=== PATIENT | male | born 1955 | race Caucasian/White ===

== ENCOUNTER 2025-02-09 13:39 | Outpatient (CLI) | payer MEDICARE, SELFPAY ==
--- OUTSIDE RECORDS SUMMARY | 2025-02-09 14:07 | XMS_ITS ---
Author Organization [facility] Address [address] [place] [address] Care Team Providers Care Beer Brewer Name Role Phone Yamileth Conrad Primary Care Provider [phone] REASON FOR VISIT DI orders Social History Sex Assigned At : Social History Observation Description Sex Assigned At Male Encounters Encounter Location Date Provider Diagnosis [address] [address] 02/09/2025 Yamileth Conrad Abnormal electrocardiogram [ECG] [EKG] R94.31 Assessments Encounter Date Diagnosis (ICD Code) Assessment Notes Treatment Notes Treatment Clinical Notes Section Notes 02/09/2025 Abnormal electrocardiogram [ECG] [EKG] (ICD-10 - R94.31) Plan Of Treatment Future Test Test Name Order Date Echocardiogram 02/09/2025 Progress Notes * Federico SHIRLEYDOB:1955 (69 yo M)Acc No.[id number]:02/09/2025 UNLOCKED PROGRESS NOTE Patient: Fdeerico SMALL :1955 A ge:69 Y S ex:Male Address:[address] [place], [address] Subjective: * Chief Complaints: * D I orders * Medical History: * Surgical History: * Hospitalization/Major Diagno stic Procedure: * Medications: Objective: * Vitals: * Physical Examination: Assessment: * Assessment: 1. A bnormal electrocardiogram [ECG] [EKG] - R94.31 (Primary) Plan: * Treatment: * Procedure Codes: * * Date:
--- OUTSIDE RECORDS SUMMARY | 2025-02-09 14:08 | XMS_ITS ---
Author Organization [facility] Address [address] [place] [address] Care Team Providers Care Foam Charger Name Role Phone Yamileth Conrad Primary Care Provider REASON FOR VISIT new code needed Social History Sex Assigned At : Social History Observation Description Sex Assigned At Male Encounters Encounter Location Date Provider Diagnosis [address] [place] [address] 02/09/2025 Yamileth Conrad Plan Of Treatment No Information Progress Notes * CASPERFederico PINEDADOB:1955 (69 yo M)Acc No.[id number]:02/09/2025 Patient: Federico SMALL :1955 A ge:69 Y S ex:Male Address:[address] [place], [address] * true * Date: Generated for Sylvaini ng/Facruzg/eTransmitting on: 0 02/09/2025 02:08 PM CDT
--- OUTSIDE RECORDS SUMMARY | 2025-02-09 14:08 | XMS_ITS | Clinical Summary ---
Author Organization [facility] Address [address] [address] Care Team Providers Care Undercollar Maker Name Role Phone Unavailable Primary Care Provider Unavailabl e Source Comments [facility] documistic,non-owned Affiliates and Associated Physician Practices is amultiple site organization consisting of ambulatory clinics and hospital sitesin [place], [place], [place] and [place]. This disclosure is being madepursuant to the Care Everywhere program and may not contain all information available regarding this patient. Last updated 18.[facility] Allergies No known active allergies Medications * Be aware that medications may not be up to date on this document. Alwaysverify current medications with the patient. Medication Sig Dispensed Refills Start Date End Date Status omeprazole (PriLOSEC) 20 MG capsule Take 1 (one) capsule by mouth daily before breakfast Active amLODIPine (Norvasc) 10 MG tablet Take 1 (one) tablet by mouth once daily Active aspirin EC (Ecotrin) 81 MG tablet Take 1 (one) tablet by mouth once daily Active lisinopril (Prinivil; Zestril) 10 MG tablet Take 1 (one) tablet by mouth once daily Active tamsulosin (Flomax) 0.4 MG capsule Take 1 (one) capsule by mouth once daily At the same time every day after a meal. Active meloxicam (Mobic) 15 MG tablet Take 1 (one) tablet by mouth once daily Active nortriptyline (Pamelor) 10 MG capsule Take 1 (one) capsule by mouth at bedtime Active atorvastatin (Lipitor) 20 MG tablet Take 1 (one) tablet by mouth at bedtime Active Active Problems No known active problems Encounters Date Type Department Care Team Description 01/26/2025 Travel 01/20/2025 Orders Only [facility] - [facility]oped[facility] [address] [place] [phone] Yamileth Aguilar RN Cervical myelopathy 01/17/2025 11:14 AM CLIPPING MARKER - 01/17/2025 11:59 PM CLIPPING MARKER Hospital Encounter [facility] DIAGNOSTIC RAD [address] [place] [phone] Xu Park MD Discharge Disposition: Home or Self Care 01/17/2025 10:45 AM CLIPPING MARKER Office Visit [facility] [address] [place] [phone] Xu Park MD Cervical myelopathy (Primary Dx) 01/14/2025 5:06 PM CLIPPING MARKER - 01/14/2025 11:59 PM CLIPPING MARKER Hospital Encounter [facility] MRI [address] [place] [phone] Xu Park MD Discharge Disposition: Home or Self Care 12/20/2024 9:15 AM CLIPPING MARKER Office Visit [facility] Orthoped[facility] [address] [place] [phone] Xu Park MD Degenerative scoliosis (Primary Dx); Cervical myelopathy 12/20/2024 Travel 12/16/2024 12:25 PM CLIPPING MARKER - 12/16/2024 11:59 PM CLIPPING MARKER Hospital Encounter [facility] CAT SCAN [address] [place] [phone] Xu Park MD Discharge Disposition: Home or Self Care 12/10/2024 12:34 PM CLIPPING MARKER - 12/10/2024 11:59 PM CLIPPING MARKER Hospital Encounter [facility] MRI [address] [place] [phone] Xu Park MD Discharge Disposition: Home or Self Care 12/10/2024 12:30 PM CLIPPING MARKER - 12/10/2024 12:33 PM CLIPPING MARKER Hospital Encounter [facility] MRI [address] [place] [phone] Xu Park MD Discharge Disposition: Home or Self Care 11/22/2024 8:33 AM CLIPPING MARKER - 11/22/2024 11:59 PM CLIPPING MARKER Hospital Encounter [facility] DIAGNOSTIC RAD [address]SM [address] [facility] [facility] [place] [address] Xu Park MD Discharge Disposition: Home or Self Care 11/22/2024 8:30 AM CLIPPING MARKER Office Visit [facility]oped[facility] [address] [place] [address], [place] [phone] Xu Park MD Thoracic myelopathy (Primary Dx); Lumbar stenosis with neurogenic claudication 11/22/2024 Travel 11/18/2024 Orders Only [facility] [address] [place] [phone] Xu Park MD Low back pain, unspecified back pain laterality, unspecified chronicity, unspecified whether sciatica present from Last 3 Months Social History Tobacco Use Types Packs/Day Years Used Date Smoking Tobacco: Former Cigarettes Smokeless Tobacco: Never Tobacco Cessation:Counseling Given: Not Answered Alcohol Use Standard Drinks/Week Comments Not Currently 0 (1 standard drink = 0.6 oz pur e alcohol) AUDIT-C Answer Date Recorded Q1: How often do you have a drink containing alcohol? Never 06/09/2024 Q2: How many drinks containi ng alcohol do you have on a typical day when you are drinking? Patient does not drink Q3: How often do you have si x or more drinks on one occasion? Never 06/09/2024 Sex and Gender Information Value Date Recorded Sex Assigned at Not on file Gender Identity Not on file Sexual Orientation Not on file Last Filed Vital Signs Vital Sign Reading Time Taken Comments Blood Pressure 172/71 07/21/2024 8:41 AM CDT Pulse 85 07/21/2024 8:36 AM CDT Temperature 36.8 C (98.3 F) 07/21/2024 8:36 AM CDT Respiratory Rate 18 07/21/2024 8:36 AM CDT Oxygen Saturation 98% 07/21/2024 8:36 AM CDT Inhaled Oxygen Concentration - - Weight 90.7 kg (200 lb) 11/22/2024 9:00 AM CLIPPING MARKER Height 172.7 cm (5' 8 ) 11/22/2024 9:00 AM CLIPPING MARKER Body Mass Index 30.41 11/22/2024 9:00 AM CLIPPING MARKER Plan of Treatment Upcoming Encounters Date Type Department Care Team (Latest Contact Info) Description 02/28/2025 8:00 AM CDT Appointment [facility] CAT SCAN [address] [place] [phone] Xu Park MD [address] [place] [phone] 02/28/2025 8:45 AM CDT Office Visit [facility] [address] [place] [address], [place] [address] Xu Park MD [address] [place] [phone] 02/28/2025 10:30 AM CDT Appointment [facility] PAT [address] [place] [phone] 03/13/2025 7:15 AM CDT Hospital Encounter [facility] [address] [place] [phone] Xu Park MD [address] [place] [phone] Surgery General 03/13/2025 7:15 AM CDT - 03/13/2025 11:15 AM CDT Surgery [facility] [address] [place] [phone] Xu Park MD [address] [place] [phone] CERVICAL 2-THORACIC 2 INSTRUMENTED POSTERIOR SPINAL FUSION, CERVICAL 2-CERVICAL 4 LAMINECTOMIES, CERVICAL 7-THORACIC 11 LAMINECTOMY Scheduled Procedures Name Priority Associated Diagnoses Date/Ti me FUSION POSTERIOR CERVICAL (PCF) Cervical myelopathy (HCC) 03/13/2025 7:15 AM CDT Health Maintenance Due Date Last Done Comments COLOGUARD (AGES 45-75) - COLON CA SCREENING 1955 COLON MONITORING 1953 COLONOSCOPY - COLON CA SCREENING 1953 CT COLONOGRAPHY - COLON CA SCREENING 1955 Colorectal Cancer Screening 1953 FIT - COLON CA SCREENING 1953 FLEX SIG - COLON CA SCREENING 1953 HEPATITIS C SCREENING 04/07/1971 DTAP/TDAP/TD VACCINES (1 - Tdap) 1972 PNEUMOCOCCAL VACCINE 50+ (1 of 1 - PCV) 2003 ZOSTER VACCINE (1 of 2) 2003 AAA SCREENING 2018 COVID-19 VACCINE ( - season) 2024 11/03/2021, 10/31/2021, 02/16/2021, Additional history exists INFLUENZA VACCINE (#1) 2024 DEPRESSION SCREENING 11/23/2024 SCREENING FOR DIABETES 06/09/2027 06/09/2024 Respiratory Syncytial Virus (RSV) Vaccine Pt: or over 60 yrs (1 - 1-dose 75+ series) 2028 HEPATITIS B VACCINE Aged Out No longe r eligible based on patient's age to complete this topic HIB VACCINE Aged Out No longer eligi ble based on patient's age to complete this topic HPV VACCINE Aged Out No longer eligi ble based on patient's age to complete this topic MENINGOCOCCAL (Group B) VACCINE SHARED DECISION-MAKING Aged Out No longer eligible based on patient's age to complete this topic MENINGOCOCCAL GROUPS A/C/Y/W VACCINE Aged Out No longer eligible based on patient's age to complete this topic Procedures Procedure Name Priority Date/Time Associated Diagnosis Comments XR SPINE ENTIRE 2 OR 3VW Routine 01/17/2025 11:29 AM CLIPPING MARKER Degenerative scoliosis MRI CERVICAL SPINE WO CONTRAST Routine 01/14/2025 5:45 PM CLIPPING MARKER Cervical myelopathy CT LUMBAR SPINE WO CONTRAST Routine 12/16/2024 12:33 PM CLIPPING MARKER Lumbar stenosis with neurogenic claudication MRI THORACIC SPINE WO CONTRAST Routine 12/10/2024 1:29 PM CLIPPING MARKER Thoracic myelopathy MRI LUMBAR SPINE WO CONTRAST Routine 12/10/2024 1:29 PM CLIPPING MARKER Lumbar stenosis with neurogenic claudication XR LUMBAR SPINE 2 OR 3VW Routine 11/22/2024 8:54 AM CLIPPING MARKER Low back pain, unspecified back pain laterality, unspecified chronicity, unspecified whether sciatica present GLUCOSE - POINT OF CARE Routine 06/09/2024 10:30 AM CDT from Last 3 Months or Most Recently Relevant to Health Maintenance Results * XR Spine Entire 2 or 3Vw (01/17/2025 11:29 AM CLIPPING MARKER) Anatomical Region Laterality Modality Spine Computed Radiogr aphy 01/17/2025 11:3 2 AM CLIPPING MARKER Impressions 01/17/2025 12:01 PM CLIPPING MARKER IMPRESSION: Thoracolumbar scoliosis. Report dictated by Rao Cortes MD, (Underwear Welter). I, Andrea Alford MD have personally reviewed and interpreted this examination/study. > Interpreting Provider: Andrea Alford MD on 01/17/2025 12:01 PM Narrative 01/17/2025 12:01 PM CLIPPING MARKER PROCEDURE: XR SPINE ENTIRE 2 OR 3VW, DATE/TIME OF EXAM: 01/17/2025 11:29 AM, LOCATION [facility] INDICATION: M41.50: Degenerative scoliosis ADDITIONAL CLINICAL INFORMATION: Ordering Provider Reason For Exam: eval scoliosis COMPARISON: CT lumbar spine dated 12/16/2024. MR thoracic and lumbar spine dated 12/10/2024. FINDINGS: There is levoscoliosis measuring 17 degrees from L2 to L5, and dextroscoliosis measuring 17 degrees from T8 to L2. This scoliosis study is not adequate for fracture evaluation. There are chronic compression fractures of T8, T10, L1, and L3 with mild anterior height loss. There are mild to moderate multilevel degenerative changes. Procedure Note Andrea Alford MD - 01/17/2025 PROCEDURE: XR SPINE ENTIRE 2 OR 3VW, DATE/TIME OF EXAM: 1:29 AM, LOCATION [facility] INDICATION: M41.50: Degenerative scoliosis ADDITIONAL CLINICAL INFORMATION: Ordering Provider Reason For Exam: eval scoliosis COMPARISON: CT lumbar spine dated 12/16/2024. MR thoracic and lumbar spine dated 12/10/2024. FINDINGS: There is levoscoliosis measuring 17 degrees from L2 to L5, and dextroscoliosis measuring 17 degrees from T8 to L2. This scoliosis study is not adequate for fracture evaluation. There are chronic compression fractures of T8, T10, L1, and L3 with mild anterior height loss. There are mild to moderate multilevel degenerative changes. IMPRESSION: Thoracolumbar scoliosis. Report dictated by Rao Cortes MD, (Underwear Welter). I, Andrea Alford MD have personally reviewed and interpreted this examination/study. > Interpreting Provider: Andrea Alford MD on 01/17/2025 12:01 PM Xu Park MD DIAGNOSTIC IMAGING O RDERABLES * MRI Cervical Spine Wo Contrast (01/14/2025 5:45 PM CLIPPING MARKER) Anatomical Region Laterality Modality Pelvis Magnetic Resonan ce 01/15/2025 10:0 5 AM CLIPPING MARKER Impressions 01/15/2025 1:20 PM CLIPPING MARKER IMPRESSION: 1.Cervical fusion from C4 to C7. 2.Advanced with degenerative disc and joint disease as detailed level by level above, worst at C3-C4, with severe spinal canal stenosis and severe cord compression, with decreased cord caliber and abnormal cord signal, compatible with chronic compressive myelopathy/myelomalacia, as outlined. 3.Additional moderate spinal canal stenosis at C3-C6 and C7-T1 with mild to moderate cord compression as detailed above. 4.Varying degrees of up to severe neural foraminal stenoses as detailed above. > Interpreting Provider: Aguilar Choi MD on 01/15/2025 1:20 PM Narrative 01/15/2025 1:20 PM CLIPPING MARKER PROCEDURE: MRI CERVICAL SPINE WO CONTRAST, DATE/TIME OF EXAM: 01/14/2025 5:45 PM, LOCATION [facility] INDICATION: G95.9: Cervical myelopathy (HCC) ADDITIONAL CLINICAL INFORMATION: Ordering Provider Reason For Exam: Cervical myelopathy Technologist Note: Does the patient have a pacemaker or defibrillator?->No Does the patient have metal implants or stents?->No Additional: None. EXAMINATION: Magnetic resonance imaging (MRI) of the cervical spine without contrast TECHNIQUE: MRI of the cervical spine was performed without contrast according to standard protocol. COMPARISON: No prior study is available for comparison at the time of this dictation. FINDINGS: Mild anterolisthesis of C2 on C3 and C3 on C4. Trace anterolisthesis of C7 on T1. Gentle kyphosis of the cervical spine. The alignment is otherwise grossly unremarkable. The patient is status post cervical fusion from C4 to C7. There is complete osseous fusion of C4-C7, with loss of the disc spaces. Vertebral bodies are normal in height without evidence of compression fractures. Marrow signal intensity is normal. The craniocervical junction and visualized portions of the posterior fossa appear normal. There is cord compression with decreased cord caliber and abnormal cord signal at the level of C3-C4 compatible with chronic compressive myelopathy/myelomalacia, with classic owl's eye sign. There is compression also noted at C2-C3 and C7-T1. The anterior and posterior longitudinal ligaments as well as the posterior ligamentous complex appear intact. There is mild disc height loss at multiple levels. Mild disc desiccation at multiple levels. No soft tissue abnormality is identified. Normal flow voids are identified in the right vertebral artery. The left vertebral artery is likely nondominant, minute in caliber and is hardly seen. C2-3: There is diffuse disc bulge. There is moderate hypertrophy of the ligamentum flavum. There is moderate to severe central canal stenosis. There is moderate cord compression. There is moderate facet osteoarthritis. There is mild to moderate uncovertebral joint osteoarthritis. There is mild bilateral neural foraminal stenosis. C3-4: There is diffuse disc bulge. There is significant hypodensity of the ligamentum flavum. There is severe central canal stenosis. There is severe cord compression with evidence of chronic compressive myelopathy. There is advanced facet osteoarthritis. There is advanced uncovertebral joint osteoarthritis. There is severe bilateral neural foraminal stenosis. C4-5: There are postoperative findings as outlined above. There is minimal disc bulge. There is no high-grade central canal stenosis. There is mild facet osteoarthritis. There is mild uncovertebral joint osteoarthritis. There is mild neural foraminal stenosis. C5-6: There is postoperative findings as outlined above. There is no disc bulge. There is no central canal stenosis. There is mild facet osteoarthritis. There is minimal uncovertebral joint osteoarthritis. There is a small left perineural cyst. There is no high-grade neural foraminal stenosis. C6-7: There is postoperative findings as outlined above. There is no disc bulge. There is no significant central canal stenosis. There is mild facet osteoarthritis. There is mild uncovertebral joint osteoarthritis. There is minimal right and moderate left neural foraminal stenosis. C7-T1: There is diffuse disc bulge. There is moderate hypertrophy of the ligamentum flavum. There is moderate central canal stenosis. There is moderate facet osteoarthritis. There is advanced uncovertebral joint osteoarthritis. There is severe bilateral neural foraminal stenosis. At T1-T2: Moderate diffuse disc bulge. Moderate hypertrophy of the ligamentum flavum. Mild spinal canal stenosis. No cord compression. Bilateral facet arthropathy. Severe bilateral neural foraminal stenosis. Procedure Note Aguilar Choi MD - 01/15/2025 PROCEDURE: MRI CERVICAL SPINE WO CONTRAST, DATE/TIME OF EXAM:01/14/2025 5:45 PM, LOCATION [facility] INDICATION: G95.9: Cervical myelopathy (HCC) ADDITIONAL CLINICAL INFORMATION: Ordering Provider Reason For Exam: Cervical myelopathy Technologist Note: Does the patient have a pacemaker ordefibrillator?->No Does the patient have metal implants or stents?->No Additional: None. EXAMINATION: Magnetic resonance imaging (MRI) of the cervical spinewithout contrast TECHNIQUE: MRI of the cervical spine was performed without contrast according to standard protocol. COMPARISON: No prior study is available for comparison at the time ofthis dictation. FINDINGS: Mild anterolisthesis of C2 on C3 and C3 on C4. Trace anterolisthesis ofC7 on T1. Gentle kyphosis of the cervical spine. The alignment is otherwise grossly unremarkable. The patient is status post cervical fusion from C4to C7. There is complete osseous fusion of C4-C7, with loss of the disc spaces. Vertebral bodies are normal in height without evidence of compression fractures. Marrow signal intensity is normal. The craniocervical junction and visualized portions of the posterior fossa appear normal. There is cord compression with decreased cord caliber and abnormal cord signal at the level of C3-C4 compatible with chronic compressive myelopathy/myelomalacia, with classic owl's eye sign. Thereis compression also noted at C2-C3 and C7-T1. The anterior and posterior longitudinal ligaments as well as the posterior ligamentous complexappear intact. There is mild disc height loss at multiple levels. Mild disc desiccation at multiple levels. No soft tissue abnormality isidentified. Normal flow voids are identified in the right vertebral artery. The left vertebral artery is likely nondominant, minute in caliber and is hardly seen. C2-3: There is diffuse disc bulge. There is moderate hypertrophy of the ligamentum flavum. There is moderate to severe central canal stenosis. There is moderate cord compression. There is moderate facetosteoarthritis. There is mild to moderate uncovertebral joint osteoarthritis. There ismild bilateral neural foraminal stenosis. C3-4: There is diffuse disc bulge. There is significant hypodensity ofthe ligamentum flavum. There is severe central canal stenosis. There issevere cord compression with evidence of chronic compressive myelopathy. Thereis advanced facet osteoarthritis. There is advanced uncovertebral joint osteoarthritis. There is severe bilateral neural foraminal stenosis. C4-5: There are postoperative findings as outlined above. There isminimal disc bulge. There is no high-grade central canal stenosis. There is mild facet osteoarthritis. There is mild uncovertebral joint osteoarthritis. There is mild neural foraminal stenosis. C5-6: There is postoperative findings as outlined above. There is nodisc bulge. There is no central canal stenosis. There is mild facet osteoarthritis. There is minimal uncovertebral joint osteoarthritis.There is a small left perineural cyst. There is no high-grade neural foraminal stenosis. C6-7: There is postoperative findings as outlined above. There is nodisc bulge. There is no significant central canal stenosis. There is mildfacet osteoarthritis. There is mild uncovertebral joint osteoarthritis. Thereis minimal right and moderate left neural foraminal stenosis. C7-T1: There is diffuse disc bulge. There is moderate hypertrophy of the ligamentum flavum. There is moderate central canal stenosis. There is moderate facet osteoarthritis. There is advanced uncovertebral joint osteoarthritis. There is severe bilateral neural foraminal stenosis. At T1-T2: Moderate diffuse disc bulge. Moderate hypertrophy of the ligamentum flavum. Mild spinal canal stenosis. No cord compression. Bilateral facet arthropathy. Severe bilateral neural foraminal stenosis. IMPRESSION: 1.Cervical fusion from C4 to C7. 2.Advanced with degenerative disc and joint disease as detailed level by level above, worst at C3-C4, with severe spinal canal stenosis andsevere cord compression, with decreased cord caliber and abnormal cord signal, compatible with chronic compressive myelopathy/myelomalacia, asoutlined. 3.Additional moderate spinal canal stenosis at C3-C6 and C7-T1 with mildto moderate cord compression as detailed above. 4.Varying degrees of up to severe neural foraminal stenoses as detailed above. > Interpreting Provider: Aguilar Choi MD on 01/15/2025 1:20 PM Xu Park MD MR ORDERABLES * CT Lumbar Spine Wo Contrast (12/16/2024 12:33 PM CLIPPING MARKER) Anatomical Region Laterality Modality Spine Computed Tomogra phy 12/18/2024 1:54 PM CLIPPING MARKER Impressions 12/18/2024 2:25 PM CLIPPING MARKER IMPRESSION: 1. 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 2. Chronic compression fractures of the L1 and L3 vertebral bodies. > Interpreting Provider: Tara Lewis MD on 12/18/2024 2:25 PM Narrative 12/18/2024 2:25 PM CLIPPING MARKER PROCEDURE: CT LUMBAR SPINE WO CONTRAST, DATE/TIME OF EXAM: 12/16/2024 12:34 PM, LOCATION [facility] INDICATION: M48.062: Lumbar stenosis with neurogenic claudication ADDITIONAL CLINICAL INFORMATION: Ordering Provider Reason For Exam: preoperative planning Technologist Note: Additional: EXAMINATION: Computed tomography (CT) of the lumbar spine without contrast TECHNIQUE: CT of the lumbar spine was performed without contrast according to standard protocol. COMPARISON: MRI of the lumbar spine dated 12/10/2024. FINDINGS: The lumbar spine is straightened with loss of cervical lordosis, which could be positional. The bones are mildly osteopenic. No acute compression fracture. Chronic compression fractures of the L1 and L3 vertebral bodies are unchanged. There is up to severe multilevel degenerative disc and joint disease as detailed below. 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 There is atherosclerotic calcification of the abdominal aorta and its branch vessels. L1-L2: There is moderate disc bulge. There is moderate central canal stenosis. There is mild bilateral facet osteoarthritis. There is moderate bilateral neural foraminal stenosis. L2-L3: There is moderate disc bulge and ligamentum flavum thickening. There is severe central canal stenosis. There is moderate bilateral facet osteoarthritis. There is severe right and mild left neural foraminal stenosis. L3-L4: There is moderate to severe disc bulge and ligamentum flavum thickening. There is severe central canal stenosis. There is moderate to severe bilateral facet osteoarthritis. There is moderate right and mild left neural foraminal stenosis. L4-L5: There is severe disc bulge and ligamentum flavum thickening. There is severe central canal stenosis. There is severe bilateral facet osteoarthritis. There is severe right and mild left neural foraminal stenosis. L5-S1: There is moderate disc bulge. There is mild central canal stenosis. There is moderate bilateral facet osteoarthritis. There is severe bilateral neural foraminal stenosis. Procedure Note Tara Lewis MD - 12/18/2024 PROCEDURE: CT LUMBAR SPINE WO CONTRAST, DATE/TIME OF EXAM: 12/16/2024 12:34 PM, LOCATION [facility] INDICATION: M48.062: Lumbar stenosis with neurogenic claudication ADDITIONAL CLINICAL INFORMATION: Ordering Provider Reason For Exam: preoperative planning Technologist Note: Additional: EXAMINATION: Computed tomography (CT) of the lumbar spine withoutcontrast TECHNIQUE: CT of the lumbar spine was performed without contrastaccording to standard protocol. COMPARISON: MRI of the lumbar spine dated 12/10/2024. FINDINGS: The lumbar spine is straightened with loss of cervical lordosis, which could be positional. The bones are mildly osteopenic. No acutecompression fracture. Chronic compression fractures of the L1 and L3 vertebralbodies are unchanged. There is up to severe multilevel degenerative disc andjoint disease as detailed below. 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 There is atherosclerotic calcification of the abdominal aorta and its branch vessels. L1-L2: There is moderate disc bulge. There is moderate central canal stenosis. There is mild bilateral facet osteoarthritis. There ismoderate bilateral neural foraminal stenosis. L2-L3: There is moderate disc bulge and ligamentum flavum thickening.There is severe central canal stenosis. There is moderate bilateral facet osteoarthritis. There is severe right and mild left neural foraminal stenosis. L3-L4: There is moderate to severe disc bulge and ligamentum flavum thickening. There is severe central canal stenosis. There is moderate to severe bilateral facet osteoarthritis. There is moderate right and mild left neural foraminal stenosis. L4-L5: There is severe disc bulge and ligamentum flavum thickening.There is severe central canal stenosis. There is severe bilateral facet osteoarthritis. There is severe right and mild left neural foraminal stenosis. L5-S1: There is moderate disc bulge. There is mild central canalstenosis. There is moderate bilateral facet osteoarthritis. There is severebilateral neural foraminal stenosis. IMPRESSION: 1. 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 2. Chronic compression fractures of the L1 and L3 vertebral bodies. > Interpreting Provider: Tara Lewis MD on 12/18/2024 2:25 PM Xu [address] MD CT ORDERABLES * MRI Thoracic Spine Wo Contrast (12/10/2024 1:29 PM CLIPPING MARKER) Anatomical Region Laterality Modality Chest Magnetic Resonan ce 12/14/2024 3:24 PM CLIPPING MARKER Impressions 12/14/2024 3:45 PM CLIPPING MARKER IMPRESSION: 1. Lumbar spine: Multilevel disc and joint degenerative changes of the spine as described above most prominent at the level of L3-L4 with severe central canal stenosis. 2. Thoracic spine: No abnormal spinal cord signal. Multilevel mild to moderate degenerative changes of the spine without significant central canal stenosis. > Interpreting Provider: Annemarie Barnes MD on 12/14/2024 3:45 PM Narrative 12/14/2024 3:45 PM CLIPPING MARKER PROCEDURE: MRI LUMBAR SPINE WO CONTRAST, MRI THORACIC SPINE WO CONTRAST, DATE/TIME OF EXAM: 12/10/2024 1:29 PM, LOCATION [facility] INDICATION: M48.062: Lumbar stenosis with neurogenic claudication ADDITIONAL CLINICAL INFORMATION: Ordering Provider Reason For Exam: eval stenosis, pre op planning (accession [id number]), eval thoracic myelopathy (accession [id number]) Technologist Note: Additional: COMPARISON: X-ray lumbar spine 11/22/2024 TECHNIQUE: Lumbar spine, thoracic spine MRI was performed without contrast, according to standard protocol. FINDINGS: Thoracic spine: The alignment is normal. Chronic vertebral height loss at the levels of T8 and T10 vertebral bodies. Vertebral bodies are otherwise normal in height without evidence of compression fractures. Slightly heterogeneous marrow signal with the areas of fatty replacement. Endplate degenerative changes most prominent at the level of T1-T2.. The spinal cord appears normal. Multilevel mild disc height loss. Small posterior disc bulges noted at multiple levels most prominent at the level of T1 T2 T7 T8 T8 T9, T9-T10 and also at the level of T12-L1.. There is associated mild ventral effacement of the CSF/mild central canal stenosis. Otherwise no significant central canal stenosis noted.. Multilevel mild to moderate facet arthropathy most prominent at the level of T1-T2. Severe bilateral neural foraminal stenosis at the level of T1-T2 moderate right-sided neural foramina stenosis noted through the levels of T8-T9 to T10-T11 and on the left side through the levels of T8-T9 to T11-T12. No acute soft tissue abnormality noted. Partially visualized moderate central canal stenosis at the level of C7-T1. Lumbar spine: There is slight straightening of the lumbar lordosis. Chronic vertebral body height loss at L1 and L3 vertebral bodies. Vertebral bodies are otherwise normal in height without evidence of compression fractures. Heterogeneous marrow signal with areas of fatty replacement and endplate degenerative changes at multiple levels most prominent at the level of L4-L5 and L5-S1 with associated mild edema. The conus medullaris terminates at the level of L2 and the distal spinal cord signal intensity is normal. Multilevel mild to moderate disc height loss. No acute soft tissue abnormality is identified. L1-L2: Diffuse disc bulge. Mild ligamentum flavum hypertrophy. There is mild to moderate central canal stenosis. There is mild bilateral facet osteoarthritis. There is mild bilateral neural foraminal stenosis. L2-L3: Diffuse disc bulge. There is moderate thecal sac stenosis with dorsal epidural lipomatosis.. There is mild bilateral facet osteoarthritis. There is mild left, moderate right neural foraminal stenosis. L3-L4: Diffuse disc bulge and ligamentum flavum hypertrophy with severe central canal stenosis. There is a redundancy of the cauda equina nerve roots just superior to the level of severe stenosis. There is severe bilateral facet osteoarthritis. There is moderate to severe right (image 18, series 10), moderate left neural foraminal stenosis. L4-L5: Diffuse disc bulge, eccentric to the right with right subarticular recess narrowing and lateral recess narrowing.. There is moderate central canal stenosis. There is moderate right, mild to moderate left facet osteoarthritis. There is mild to moderate left, moderate right neural foraminal stenosis. L5-S1: Diffuse disc bulge. There is no central canal stenosis. There is mild to moderate right, moderate left facet osteoarthritis. There is severe bilateral neural foraminal stenosis. Procedure Note Annemarie Barnes MD - 12/14/2024 PROCEDURE: MRI LUMBAR SPINE WO CONTRAST, MRI THORACIC SPINE WOCONTRAST, DATE/TIME OF EXAM: 12/10/2024 1:29 PM, LOCATION [facility] INDICATION: M48.062: Lumbar stenosis with neurogenic claudication ADDITIONAL CLINICAL INFORMATION: Ordering Provider Reason For Exam: eval stenosis, pre op planning (accession [id number]), eval thoracic myelopathy (accession [id number]) Technologist Note: Additional: COMPARISON: X-ray lumbar spine 11/22/2024 TECHNIQUE: Lumbar spine, thoracic spine MRI was performed without contrast,according to standard protocol. FINDINGS: Thoracic spine: The alignment is normal. Chronic vertebral height loss at the levels ofT8 and T10 vertebral bodies. Vertebral bodies are otherwise normal inheight without evidence of compression fractures. Slightly heterogeneous marrow signal with the areas of fatty replacement. Endplate degenerativechanges most prominent at the level of T1-T2.. The spinal cord appears normal. Multilevel mild disc height loss. Small posterior disc bulges noted at multiple levels most prominent at the level of T1 T2 T7 T8 T8 T9, T9-T10 and also at the level of T12-L1.. There is associated mild ventral effacement of the CSF/mild central canal stenosis. Otherwise nosignificant central canal stenosis noted.. Multilevel mild to moderate facet arthropathy most prominent at the level of T1-T2. Severe bilateralneural foraminal stenosis at the level of T1-T2 moderate right-sided neural foramina stenosis noted through the levels of T8-T9 to T10-T11 and onthe left side through the levels of T8-T9 to T11-T12. No acute soft tissue abnormality noted. Partially visualized moderate central canal stenosis at the level ofC7-T1. Lumbar spine: There is slight straightening of the lumbar lordosis. Chronic vertebral body height loss at L1 and L3 vertebral bodies. Vertebral bodies are otherwise normal in height without evidence of compression fractures. Heterogeneous marrow signal with areas of fatty replacement and endplate degenerative changes at multiple levels most prominent at the level of L4-L5 and L5-S1 with associated mild edema. The conus medullaristerminates at the level of L2 and the distal spinal cord signal intensity isnormal. Multilevel mild to moderate disc height loss. No acute soft tissue abnormality is identified. L1-L2: Diffuse disc bulge. Mild ligamentum flavum hypertrophy. There is mild to moderate central canal stenosis. There is mild bilateral facet osteoarthritis. There is mild bilateral neural foraminal stenosis. L2-L3: Diffuse disc bulge. There is moderate thecal sac stenosis with dorsal epidural lipomatosis.. There is mild bilateral facetosteoarthritis. There is mild left, moderate right neural foraminal stenosis. L3-L4: Diffuse disc bulge and ligamentum flavum hypertrophy with severe central canal stenosis. There is a redundancy of the cauda equina nerve roots just superior to the level of severe stenosis. There is severe bilateral facet osteoarthritis. There is moderate to severe right (image 18, series 10), moderate left neural foraminal stenosis. L4-L5: Diffuse disc bulge, eccentric to the right with rightsubarticular recess narrowing and lateral recess narrowing.. There is moderatecentral canal stenosis. There is moderate right, mild to moderate left facet osteoarthritis. There is mild to moderate left, moderate right neural foraminal stenosis. L5-S1: Diffuse disc bulge. There is no central canal stenosis. There is mild to moderate right, moderate left facet osteoarthritis. There issevere bilateral neural foraminal stenosis. IMPRESSION: 1. Lumbar spine: Multilevel disc and joint degenerative changes of the spine as described above most prominent at the level of L3-L4 withsevere central canal stenosis. 2. Thoracic spine: No abnormal spinal cord signal. Multilevel mild to moderate degenerative changes of the spine without significant central canal stenosis. > Interpreting Provider: Annemarie Barnes MD on 12/14/2024 3:45 PM Xu Park MD MR ORDERABLES * MRI Lumbar Spine Wo Contrast (12/10/2024 1:29 PM CLIPPING MARKER) Anatomical Region Laterality Modality Spine Magnetic Resonan ce 12/14/2024 3:24 PM CLIPPING MARKER Impressions 12/14/2024 3:45 PM CLIPPING MARKER IMPRESSION: 1. Lumbar spine: Multilevel disc and joint degenerative changes of the spine as described above most prominent at the level of L3-L4 with severe central canal stenosis. 2. Thoracic spine: No abnormal spinal cord signal. Multilevel mild to moderate degenerative changes of the spine without significant central canal stenosis. > Interpreting Provider: Annemarie Barnes MD on 12/14/2024 3:45 PM Narrative 12/14/2024 3:45 PM CLIPPING MARKER PROCEDURE: MRI LUMBAR SPINE WO CONTRAST, MRI THORACIC SPINE WO CONTRAST, DATE/TIME OF EXAM: 12/10/2024 1:29 PM, LOCATION [facility] INDICATION: M48.062: Lumbar stenosis with neurogenic claudication ADDITIONAL CLINICAL INFORMATION: Ordering Provider Reason For Exam: eval stenosis, pre op planning (accession [id number]), eval thoracic myelopathy (accession [id number]) Technologist Note: Additional: COMPARISON: X-ray lumbar spine 11/22/2024 TECHNIQUE: Lumbar spine, thoracic spine MRI was performed without contrast, according to standard protocol. FINDINGS: Thoracic spine: The alignment is normal. Chronic vertebral height loss at the levels of T8 and T10 vertebral bodies. Vertebral bodies are otherwise normal in height without evidence of compression fractures. Slightly heterogeneous marrow signal with the areas of fatty replacement. Endplate degenerative changes most prominent at the level of T1-T2.. The spinal cord appears normal. Multilevel mild disc height loss. Small posterior disc bulges noted at multiple levels most prominent at the level of T1 T2 T7 T8 T8 T9, T9-T10 and also at the level of T12-L1.. There is associated mild ventral effacement of the CSF/mild central canal stenosis. Otherwise no significant central canal stenosis noted.. Multilevel mild to moderate facet arthropathy most prominent at the level of T1-T2. Severe bilateral neural foraminal stenosis at the level of T1-T2 moderate right-sided neural foramina stenosis noted through the levels of T8-T9 to T10-T11 and on the left side through the levels of T8-T9 to T11-T12. No acute soft tissue abnormality noted. Partially visualized moderate central canal stenosis at the level of C7-T1. Lumbar spine: There is slight straightening of the lumbar lordosis. Chronic vertebral body height loss at L1 and L3 vertebral bodies. Vertebral bodies are otherwise normal in height without evidence of compression fractures. Heterogeneous marrow signal with areas of fatty replacement and endplate degenerative changes at multiple levels most prominent at the level of L4-L5 and L5-S1 with associated mild edema. The conus medullaris terminates at the level of L2 and the distal spinal cord signal intensity is normal. Multilevel mild to moderate disc height loss. No acute soft tissue abnormality is identified. L1-L2: Diffuse disc bulge. Mild ligamentum flavum hypertrophy. There is mild to moderate central canal stenosis. There is mild bilateral facet osteoarthritis. There is mild bilateral neural foraminal stenosis. L2-L3: Diffuse disc bulge. There is moderate thecal sac stenosis with dorsal epidural lipomatosis.. There is mild bilateral facet osteoarthritis. There is mild left, moderate right neural foraminal stenosis. L3-L4: Diffuse disc bulge and ligamentum flavum hypertrophy with severe central canal stenosis. There is a redundancy of the cauda equina nerve roots just superior to the level of severe stenosis. There is severe bilateral facet osteoarthritis. There is moderate to severe right (image 18, series 10), moderate left neural foraminal stenosis. L4-L5: Diffuse disc bulge, eccentric to the right with right subarticular recess narrowing and lateral recess narrowing.. There is moderate central canal stenosis. There is moderate right, mild to moderate left facet osteoarthritis. There is mild to moderate left, moderate right neural foraminal stenosis. L5-S1: Diffuse disc bulge. There is no central canal stenosis. There is mild to moderate right, moderate left facet osteoarthritis. There is severe bilateral neural foraminal stenosis. Procedure Note Annemarie Barnes MD - 12/14/2024 PROCEDURE: MRI LUMBAR SPINE WO CONTRAST, MRI THORACIC SPINE WOCONTRAST, DATE/TIME OF EXAM: 12/10/2024 1:29 PM, LOCATION [facility] INDICATION: M48.062: Lumbar stenosis with neurogenic claudication ADDITIONAL CLINICAL INFORMATION: Ordering Provider Reason For Exam: eval stenosis, pre op planning (accession [id number]), eval thoracic myelopathy (accession [id number]) Technologist Note: Additional: COMPARISON: X-ray lumbar spine 11/22/2024 TECHNIQUE: Lumbar spine, thoracic spine MRI was performed without contrast,according to standard protocol. FINDINGS: Thoracic spine: The alignment is normal. Chronic vertebral height loss at the levels ofT8 and T10 vertebral bodies. Vertebral bodies are otherwise normal inheight without evidence of compression fractures. Slightly heterogeneous marrow signal with the areas of fatty replacement. Endplate degenerativechanges most prominent at the level of T1-T2.. The spinal cord appears normal. Multilevel mild disc height loss. Small posterior disc bulges noted at multiple levels most prominent at the level of T1 T2 T7 T8 T8 T9, T9-T10 and also at the level of T12-L1.. There is associated mild ventral effacement of the CSF/mild central canal stenosis. Otherwise nosignificant central canal stenosis noted.. Multilevel mild to moderate facet arthropathy most prominent at the level of T1-T2. Severe bilateralneural foraminal stenosis at the level of T1-T2 moderate right-sided neural foramina stenosis noted through the levels of T8-T9 to T10-T11 and onthe left side through the levels of T8-T9 to T11-T12. No acute soft tissue abnormality noted. Partially visualized moderate central canal stenosis at the level ofC7-T1. Lumbar spine: There is slight straightening of the lumbar lordosis. Chronic vertebral body height loss at L1 and L3 vertebral bodies. Vertebral bodies are otherwise normal in height without evidence of compression fractures. Heterogeneous marrow signal with areas of fatty replacement and endplate degenerative changes at multiple levels most prominent at the level of L4-L5 and L5-S1 with associated mild edema. The conus medullaristerminates at the level of L2 and the distal spinal cord signal intensity isnormal. Multilevel mild to moderate disc height loss. No acute soft tissue abnormality is identified. L1-L2: Diffuse disc bulge. Mild ligamentum flavum hypertrophy. There is mild to moderate central canal stenosis. There is mild bilateral facet osteoarthritis. There is mild bilateral neural foraminal stenosis. L2-L3: Diffuse disc bulge. There is moderate thecal sac stenosis with dorsal epidural lipomatosis.. There is mild bilateral facetosteoarthritis. There is mild left, moderate right neural foraminal stenosis. L3-L4: Diffuse disc bulge and ligamentum flavum hypertrophy with severe central canal stenosis. There is a redundancy of the cauda equina nerve roots just superior to the level of severe stenosis. There is severe bilateral facet osteoarthritis. There is moderate to severe right (image 18, series 10), moderate left neural foraminal stenosis. L4-L5: Diffuse disc bulge, eccentric to the right with rightsubarticular recess narrowing and lateral recess narrowing.. There is moderatecentral canal stenosis. There is moderate right, mild to moderate left facet osteoarthritis. There is mild to moderate left, moderate right neural foraminal stenosis. L5-S1: Diffuse disc bulge. There is no central canal stenosis. There is mild to moderate right, moderate left facet osteoarthritis. There issevere bilateral neural foraminal stenosis. IMPRESSION: 1. Lumbar spine: Multilevel disc and joint degenerative changes of the spine as described above most prominent at the level of L3-L4 withsevere central canal stenosis. 2. Thoracic spine: No abnormal spinal cord signal. Multilevel mild to moderate degenerative changes of the spine without significant central canal stenosis. > Interpreting Provider: Annemarie Barnes MD on 12/14/2024 3:45 PM Xu Park MD MR ORDERABLES * XR Lumbar Spine 2 or 3Vw (11/22/2024 8:54 AM CLIPPING MARKER) Anatomical Region Laterality Modality Spine Computed Radiogr aphy 11/22/2024 9:18 AM CLIPPING MARKER Impressions 11/22/2024 9:21 AM CLIPPING MARKER Impression: 1. Anterior height loss of the L1 vertebral body and superior endplate concavity of the L3 vertebral body compatible with compression fractures, age-indeterminate but probably nonacute. 2. Moderate degenerative changes. > Interpreting Provider: Andrea Alford MD on 11/22/2024 9:21 AM Narrative 11/22/2024 9:21 AM CLIPPING MARKER PROCEDURE: XR LUMBAR SPINE 2 OR 3VW DATE/TIME OF EXAM: 11/22/2024 8:55 AM CLINICAL INFORMATION: None relevant/not provided if blank. Indication: M54.50: Low back pain, unspecified back pain laterality, unspecified chronicity, unspecified whether sciatica present Additional History: COMPARISON: None. FINDINGS: There is 25% anterior height loss of the L1 vertebral body and superior endplate concavity of the L3 vertebral body compatible with compression fractures, age-indeterminate but probably nonacute. There is moderate multilevel degenerative disc and joint disease. There is no subluxation. Atherosclerotic calcification is noted. Scoliosis is suggested although it could be positional. Procedure Note Andrea Alford MD - 11/22/2024 PROCEDURE: XR LUMBAR SPINE 2 OR 3VW DATE/TIME OF EXAM: 11/22/2024 8:55 AM CLINICAL INFORMATION: None relevant/not provided if blank. Indication: M54.50: Low back pain, unspecified back pain laterality, unspecified chronicity, unspecified whether sciatica present Additional History: COMPARISON: None. FINDINGS: There is 25% anterior height loss of the L1 vertebral body and superior endplate concavity of the L3 vertebral body compatible with compression fractures, age-indeterminate but probably nonacute. There is moderate multilevel degenerative disc and joint disease. There is no subluxation. Atherosclerotic calcification is noted. Scoliosis is suggested althoughit could be positional. Impression: 1. Anterior height loss of the L1 vertebral body and superior endplate concavity of the L3 vertebral body compatible with compressionfractures, age-indeterminate but probably nonacute. 2. Moderate degenerative changes. > Interpreting Provider: Andrea Alford MD on 11/22/2024 9:21 AM Xu Park MD DIAGNOSTIC IMAGING O RDERABLES * GLUCOSE - POINT OF CARE (06/09/2024 10:30 AM CDT) Glucose WB/POC 114 70 - 125 mg/dL 06/09/2024 11:12 AM CDT [facility] Specimen Type Cap Fingerstick 2023 11:12 AM CDT [facility] Blood BLOOD SPECIMEN / Unknown 06/09/2024 10:30 AM CDT 06/09/2024 11:11 AM CDT Edmund Rey MD LAB - POINT O F CARE ORDERABLES [facility] [address] from Last 3 Months or Most Recently Relevant to Health Maintenance [facility] [address] Inmate #[id number] [place] [address] Federico Shirley Personal/Family Self 1955 [facility] [address] Inmate #[id number] [place] [address] [facility] Other [facility] [address] [place] [address] [facility] Other [address] Federico Shirley Personal/Family Self 1955 [facility] Other [facility] [address] [facility] Other [facility] [address]
--- OUTSIDE RECORDS SUMMARY | 2025-02-09 14:08 | XMS_ITS | Patient Health Record ---
Author Organization [facility] Address [address] [place] [address] Care Team Providers Care Freight Broker Name Role Phone Yamileth Conrad Primary Care Provider AngelRonit beltre Unavailable [phone] Allergies No Known Allergies Results Component Value Reference Range Notes Colonoscopy Reviewed date:12/22/2024 04:53:21 PM Interpretation:Negative Performing Lab: Notes/Report: Negative Colonoscopy Reviewed date:12/26/2024 10:49:29 AM Interpretation:Normal Performing Lab: Notes/Report: Normal Hemoglobin A1c* Reviewed date:01/04/2025 02:42:48 PM Interpretation:Normal Performing Lab: Notes/Report: Normal TSH Rfx on Abnormal to Free T4 Reviewed date:01/04/2025 02:42:48 PM Interpretation:Normal Performing Lab: Notes/Report: Normal PSA Total+% Free Reviewed date:01/04/2025 02:42:48 PM Interpretation: Performing Lab: Notes/Report: Reason For Referral Reason Colon cancer screeni ng Diagnosis 1 Screening for colon cancer (Z12.11) Referral Organization [facility] Referring Provider First Name Yamileth Referring Provider Last Name [place] [facility] Specialty Gastroentero logy General Notes [place] 10:34:12 AM >Referral faxed to [facility], [place]aza 11/10/2024 10:34:42 AM >Referral letter & message sent to client. Clinical Notes Conrad MD [facility], [address], [place] [address], , Referral Priority Routine Reason Ongoing urgency, hes itancy, nocturia, little relief with Tamsulosin Diagnosis 1 Benign prostatic hyp erplasia with lower urinary tract symptoms (N40.1) Referral Organization [facility] Referring Provider First Name Yamileth Referring Provider Last Name [place] Referring Provider [facility] norah Referred Provider [facility] Referred Provider Specialty Urology Clinical Notes [facility] [address], [place]. [address], , Referral Priority Routine Medications Medication SIG (Take, Route, Frequency, Duration) Notes Start Date End Date Status Multi Vitamin - 1 tablet Orally Once a day for 30 days please mail to pt. 11/02/2024 Active hydroCHLOROthiazide 25 MG 1 capsule in t he morning Orally Once a day for 30 days PLEASE MAIL TO PTS HOME 11/02/2024 Active amLODIPine Besylate 10 MG 1 tablet Orall y Once a day for 30 days PLEASE MAIL TO PTS HOME Active Nortriptyline HCl 25 MG 1 capsule at bedtime Orally Once a day for 30 days PLEASE MAIL TO PTS HOME Active Meloxicam 15 MG 1 tablet Orally Once a day for 30 days As needed for pain PLEASE MAIL TO PTS HOME Active Aspirin 81 81 MG 1 tablet Orally Once a day for 30 days PLEASE MAIL TO PTS HOME Active Atorvastatin Calcium 20 MG 1 tablet Oral ly Once a day for 30 days PLEASE MAIL TO PTS HOME Active MiraLax Mix-In [place] 17 GM 1 packet mixed with 8 ounces of fluid Orally Once a day for 30 days please mail to pts. home 12/28/2024 Active Tamsulosin HCl 0.4 MG 2 capsules Orally Once a day for 30 days PLEASE MAIL TO PTS HOME Active Lisinopril 20 MG 1 tablet Orally Once a day for 30 days PLEASE MAIL TO PTS HOME Active Social History Tobacco Use: Social History Observation Description Date Details (start date - stop date) Never Smoker NA - NA Sex Assigned At : Social History Observation Description Sex Assigned At Male Tobacco Control (Standard) Question Answer Notes Tobacco use: Nonsmoker Problems Problem Type SNOMED Code ICD Code Onset Dates Problem Status W/U Status Risk Notes Problem Essential hypertension (88262629) Essential (primary) hypertension (I10) Active confirmed Problem Hyperlipidemia (85611596) Hyperlipidemia (E78.5) Active confirmed Problem Constipation (55532315) Constipation (K59.00) Active confirmed Problem Lower urinary tract symptoms due to benign prostatic hypertrophy (81775004718446) Benign prostatic hyperplasia with lower urinary tract symptoms (N40.1) Active confirmed Vital Signs Heart Rate 90 /min 02/08/2025 Temperature 98.5 degrees Fahrenheit 02/08/2025 Respiratory Rate 16 /min 02/08/2025 Blood pressure diastolic 72 mm Hg 02/08/2025 Oximetry 97 % 02/08/2025 Height 68 in 02/08/2025 Blood pressure systolic 128 mm Hg 02/08/2025 Weight 189.8 lbs 02/08/2025 BMI 28.86 kg/m2 02/08/2025 Encounters Encounter Location Date Provider Diagnosis [address] [place] [address] 02/08/2025 Yamileth Conrad [address] [place] [address] 11/02/2024 Yamileth Conrad Establishing care wi th new doctor, encounter for Z71.89 ; Screening for deficiency anemia Z13.0 ; Screening for metabolic disorder Z13.228 ; Essential (primary) hypertension I10 ; Hyperlipidemia E78.5 ; Screening for thyroid disorder Z13.29 ; Screening for diabetes mellitus Z13.1 ; Screening for colon cancer Z12.11 ; Screening for abdominal aortic aneurysm Z13.6 ; Screening for prostate cancer Z12.5 ; Nutritional counseling Z71.3 ; Back pain M54.9 ; Benign prostatic hyperplasia with lower urinary tract symptoms N40.1 and Former cigarette smoker Z87.[address] [place] [address] 11/02/2024 Yamileth Conrad Screening for diabet es mellitus Z13.1 ; Screening for deficiency anemia Z13.0 ; Hyperlipidemia E78.5 ; Screening for metabolic disorder Z13.228 ; Screening for thyroid disorder Z13.29 and Screening for prostate cancer Z12.[address] [place] [address] 11/03/2024 Ronit Ortiz Encounter for screen ing examination for mental health and behavioral disorders Z13.[address] [place] [address] 11/04/2024 Yamileth Conrad [facility] [address] [place] [address] 11/22/2024 Ronit Ortiz Encounter for screen ing examination for mental health and behavioral disorders Z13.[address] [address] 11/28/2024 Ronit Ortiz Encounter for screen ing examination for mental health and behavioral disorders Z13.[address] [address] 12/28/2024 Yamileth Conrad Nutritional counseli ng Z71.3 ; Encounter for immunization Z23 ; Hypertension I10 ; Essential (primary) hypertension I10 ; Hyperlipidemia E78.5 ; Back pain M54.9 ; Benign prostatic hyperplasia with lower urinary tract symptoms N40.1 and Constipation K59.[address] [place] [address] 02/08/2025 Yamileth Conrad Encounter for preprocedural cardiovascular examination Z01.810 ; Screening for deficiency anemia Z13.0 ; Screening for metabolic disorder Z13.228 and Nutritional counseling Z71.[address] [address] 02/09/2025 Yamileth Conrad Abnormal electrocardiogram [ECG] [EKG] R94.31 [facility] [address] [place] [address] 11/02/2024 Yamileth Conrad [facility] [place] [address] 11/03/2024 Yamileth Conrad [facility] [address] [place] [address] 11/15/2024 Yamileth Conrad [address] [address] 11/30/[address] [place] [address] 01/30/2025 Yamileth [facility] [address] [place] [address] 02/09/2025 Yamileth Conrad [facility] [address] [facility] [place] [address] 02/09/2025 Yamileth Conrad Assessments Encounter Date Diagnosis (ICD Code) Assessment Notes Treatment Notes Treatment Clinical Notes Section Notes 11/02/2024 Establishing care with new doctor, encounter for (ICD-10 - Z71.89) 11/02/2024 Screening for deficiency anemia (ICD-10 - Z13.0) 11/02/2024 Screening for diabetes mellitus (ICD-10 - Z13.1) 11/03/2024 Encounter for screening examination for mental health and behavioral disorders (ICD-10 - Z13.30) No concerns requiring intervention noted at appointment. Client released from over 30 years of incarceration last month and states he is coping well, learning new technology as well. Client reports positive coping mechanisms if he notes any irritability, anxiety, or depressing factors. He reports he has a good support system through his family. No treatment with MH medications required or recommended at this time. Client to continue monitoring behaviors, using coping mechanisms, and socialization was encouraged. The Patient/Guardian asked appropriate questions, appeared to understand the answers, and decided to accept the treatment and continue being followed if/as needed. The Patient/Guardian is aware of the need to contact the office or return for an earlier appointment if any problems or concerns arise. May also contact the 24-hour crisis hotline ([facility]), refer to the closest emergency room or call 911 if new symptoms arise of existing symptoms worsen. The Patient/Guardian is aware that this would apply to symptoms like: suicidal ideation, homicidal ideation, high risk behaviors, manic symptoms, psychotic symptoms, physical symptoms, or any other symptoms that may be dangerous to self or others. Education provided concerning need for adequate hydration. Patient/Guardian verbalized understanding of education, treatment plan and follow up. This session was completed telephonically with client/parental/ guardian consent: Unable to determine movement status, assess appearance, affect, AIMS, or vital signs. 11/22/2024 Encounter for screening examination for mental health and behavioral disorders (ICD-10 - Z13.30) No concerns requiring intervention noted at appointment today. Client released from over 30 years of incarceration Sep 29, 2024 and states he continues coping well. Client reports positive coping mechanisms if he notes any irritability, anxiety, or depressing factors. He reports he has a good support system through his family. No treatment with MH medications required or recommended at this time. Client to continue monitoring behaviors, using coping mechanisms, and continued socialization was encouraged. The Patient/Guardian asked appropriate questions, appeared to understand the answers, and decided to accept the treatment and continue being followed if/as needed. The Patient/Guardian is aware of the need to contact the office or return for an earlier appointment if any problems or concerns arise. May also contact the 24-hour crisis hotline ([facility]), refer to the closest emergency room or call 911 if new symptoms arise of existing symptoms worsen. The Patient/Guardian is aware that this would apply to symptoms like: suicidal ideation, homicidal ideation, high risk behaviors, manic symptoms, psychotic symptoms, physical symptoms, or any other symptoms that may be dangerous to self or others. Education provided concerning need for adequate hydration and proper diet. Patient/Guardian verbalized understanding of education, treatment plan and follow up. This session was completed telephonically with client/parental/ guardian consent: Unable to determine movement status, assess appearance, affect, AIMS, or vital signs. 11/28/2024 Encounter for screening examination for mental health and behavioral disorders (ICD-10 - Z13.30) No concerns requiring intervention noted at appointment today. Client released from over 30 years of incarceration Sep 29, 2024 and states he continues coping well. Client reports positive coping mechanisms if he were to note any irritability, anxiety, or depressing factors. He reports he has a good support system through his family. No treatment with MH medications required or recommended at this time. Client to continue monitoring behaviors, using coping mechanisms, and continued socialization is encouraged. Continue routine f/u with PCP and may f/u with this provider for MH if needed. Client is stable at the time of this encounter. The Patient/Guardian asked appropriate questions, appeared to understand the answers, and decided to accept the treatment and continue being followed if/as needed. The Patient/Guardian is aware of the need to contact the office or return for an earlier appointment if any problems or concerns arise. May also contact the 24-hour crisis hotline ([facility]), refer to the closest emergency room or call 911 if new symptoms arise of existing symptoms worsen. The Patient/Guardian is aware that this would apply to symptoms like: suicidal ideation, homicidal ideation, high risk behaviors, manic symptoms, psychotic symptoms, physical symptoms, or any other symptoms that may be dangerous to self or others. Education provided concerning need for adequate hydration and proper diet. Patient/Guardian verbalized understanding of education, treatment plan and follow up. This session was completed telephonically with client/parental/ guardian consent: Unable to determine movement status, assess appearance, affect, AIMS, or vital signs. 12/28/2024 Encounter for immunization (ICD-10 - Z23) Ordered per standing orders for administering influenza vaccine to adults. 12/28/2024 Nutritional counseling (ICD-10 - Z71.3) 02/09/2025 Abnormal electrocardiogram [ECG] [EKG] (ICD-10 - R94.31) 02/08/2025 Encounter for preprocedural cardiovascular examination (ICD-10 - Z01.810) 02/08/2025 Screening for deficiency anemia (ICD-10 - Z13.0) 11/02/2024 Screening for deficiency anemia (ICD-10 - Z13.0) 02/08/2025 Screening for metabolic disorder (ICD-10 - Z13.228) 12/28/2024 Hypertension (ICD-10 - I10) 11/02/2024 Screening for metabolic disorder (ICD-10 - Z13.228) 11/02/2024 Hyperlipidemia (ICD-10 - E78.5) 11/02/2024 Essential (primary) hypertension (ICD-10 - I10) 12/28/2024 Essential (primary) hypertension (ICD-10 - I10) 12/28/2024 Hyperlipidemia (ICD-10 - E78.5) 02/08/2025 Nutritional counseling (ICD-10 - Z71.3) 11/02/2024 Hyperlipidemia (ICD-10 - E78.5) 11/02/2024 Screening for metabolic disorder (ICD-10 - Z13.228) 11/02/2024 Screening for thyroid disorder (ICD-10 - Z13.29) 11/02/2024 Screening for thyroid disorder (ICD-10 - Z13.29) 12/28/2024 Back pain (ICD-10 - M54.9) 12/28/2024 Benign prostatic hyperplasia with lower urinary tract symptoms (ICD-10 - N40.1) 11/02/2024 Screening for diabetes mellitus (ICD-10 - Z13.1) 11/02/2024 Screening for prostate cancer (ICD-10 - Z12.5) 11/02/2024 Screening for colon cancer (ICD-10 - Z12.11) 12/28/2024 Constipation (ICD-10 - K59.00) 11/02/2024 Screening for abdominal aortic aneurysm (ICD-10 - Z13.6) 11/02/2024 Screening for prostate cancer (ICD-10 - Z12.5) 11/02/2024 Nutritional counseling (ICD-10 - Z71.3) 11/02/2024 Back pain (ICD-10 - M54.9) 11/02/2024 Benign prostatic hyperplasia with lower urinary tract symptoms (ICD-10 - N40.1) 11/02/2024 Former cigarette smoker (ICD-10 - Z87.891) 02/08/2025 Other Patient may self-administer their own medications or may self-administer their own oral medications per [facility] Protocol. Plan Of Treatment Pending Test Test Name Order Date CBC With Differential/Platelet* 02/09/20 25 CMP 14 Comprehensive Metabolic Panel* Future Test Test Name Order Date Electrocardiogram (EKG), IH 02/08/2025 Echocardiogram 02/09/2025 Insurance Providers Payer Name Payer Address Payer Phone Subscriber Number Group Number Insured Name Patient Relationship to Insured Coverage Start Date Coverage End Date MEDICARE PART A [address] [place] [phone] [id number] Federico Shirley Self - patient is the insured 4 MEDICAID [address] [facility] [place] [address] [id number] Federico Shirley Self - patient is the insured 4 Medical (General) History Medical History History ICD Code hypertension hyperlipidemia chronic low back pain BPH Surgical History Surgery Date(Month/Year) right arm blood infection 74 back 88 cervical 89 Hospitalization History Reason Date(Month/Year) Inpatient Detox x1
--- OUTSIDE RECORDS SUMMARY | 2025-02-09 14:08 | XMS_ITS ---
Author Organization [facility] Address [address] [place] [address] Care Team Providers Care Network Operations Center Engineer Name Role Phone Yamileth Conrad Primary Care Provider REASON FOR VISIT fax/NPI Social History Sex Assigned At : Social History Observation Description Sex Assigned At Male Encounters Encounter Location Date Provider Diagnosis [address] [place] [address] 02/09/2025 Yamileth Conrad Plan Of Treatment No Information Progress Notes * CASPER FedericoDOB:1955 (69 yo M)Acc No.[id number]:02/09/2025 Patient: Federico SMALL :1955 A ge:69 Y S ex:Male Address:[place], [address] * true * Date: Generated for Printi ng/Faxing/eTransmitting on: 0 02/09/2025 02:08 PM CDT
[2025-02-09 14:48] LABS: Basophils Absolute Auto 0.1 K/mm3 (0.0-0.1); Basophils Percent Auto 0.9 % (0.2-1.2); Eosinophils Percent Auto 0.4 % (0-4.4); Hematocrit 39.6 % (42.0-52.0); Hemoglobin 13.2 g/dL (14.0-18.0); Immature Granulocyte Absolute 0.02 K/mm3 (0.00-0.031); Immature Granulocyte Percent A 0.3 % (0-0.5); Lymphocytes Absolute Auto 1.52 K/mm3 (0.9-3.2); Lymphocytes Percent Auto 22.6 % (18.3-44.2); Mean Corpuscular HGB Conc 33.3 g/dl (32-36); Mean Corpuscular Hemoglobin 29.7 pg (26-34); Mean Platelet Volume 11.1 fl (7.4-10.4); Monocytes Absolute Auto 0.4 K/mm3 (0.1-0.6); Monocytes Percent Auto 5.9 % (2.6-8.5); Neutrophils Absolute Auto 4.7 K/mm3 (1.3-6.7); Neutrophils Percent Auto 69.9 % (45.5-73.1); Platelet Count Result 223 k/mm3 (150-375); Red Blood Count 4.45 M/mm3 (4.6-6.20); Red Cell Distribution Width 12.6 % (11.5-14.5); White Blood Count 6.7 K/mm3 (4.5-10.0)
[2025-02-09 15:08] LABS: Alanine Aminotransferase 28 U/L (6-50); Alkaline Phosphatase 58 U/L (38-126); Anion Gap 12 mmol/L (4-12); Aspartate Amino Transferase 32 U/L (17-59); Bilirubin,Total 0.8 mg/dL (0.2-1.3); Blood Urea Nitrogen 32 mg/dL (9-20); Calcium 10.3 mg/dL (8.4-10.2); Carbon Dioxide 27 mmol/L (22-30); Chloride 98 mmol/L (98-107); Estimated Glomerular Filt Rate 39; Glucose 161 mg/dL (65-110); Potassium 4.8 mmol/L (3.4-5.0); Sodium 137 mmol/L (137-145)
== END 2025-02-09 13:40 | disposition home or self-care (01) ==
LOC: ANHLAB 13:45
PROVIDERS: PCP Nurse Practitioner Family; Visit Provider Nurse Practitioner Family
DX: Z01.810 Encounter for preprocedural cardiovascular examination (principal); Z13.0 Encounter for screening for diseases of the blood and blood-forming organs and certain disorders involving the immune mechanism; Z13.228 Encounter for screening for other metabolic disorders
CPT/HCPCS: 36415; 80053; 85025

== ENCOUNTER 2025-06-28 20:19 | Inpatient (IN) | payer MEDICARE, MEDICAID, SELFPAY ==
--- NOTE | ~2025-06-28 | CT_ITS ---
History: Syncope, fall PROCEDURE: CT head without contrast. COMPARISON: None TECHNIQUE: Axial imaging of the head performed from the skull base to the vertex without IV contrast. Sagittal a nd coronal reformations obtained. DLP: 605 mGy-cm FINDINGS: The ventricles are normal in size, shape and position. There is no mass, mass effect or midline shift. There is no abnormal extra-axial fluid collection or intracranial hemorrhage. Visualized paranasal sinuses are clear. The mastoid air cells are well aerated. No acute displaced fractures within the overlying cranium. Impression: No acute intracranial hemorrhage or suspicious mass effect. Reviewed, dictated and finalized at location A. Impression: No acute intracranial hemorrhage or suspicious mass effect.
--- NOTE | ~2025-06-28 | CT_ITS ---
EXAMINATION: CTA chest PE protocol DATE: 06/28/2025 22:58 CDT INDICATION: Syncope, fall, elevated d-dimer TECHNIQUE: Computed tomographic angiography (CTA) of the chest was performed with 100 mL Omnipaque-35 0 intravenous contrast. The dose-length product was 536.68 mGy-cm. Maximum intensity projection 3D-re constructions of the aorta and other arteries were constructed by the technologist on a separate work station. COMPARISON: None. FINDINGS/OBSERVATIONS: PULMONARY ARTERIES: No filling defect is identified within the main or proximal pulmonary artery. The main pulmonary artery is not enlarged. THORACIC AORTA: No aneurysmal dilatation or dissection is present. The great vessels are intact LUNGS: Bibasilar atelectasis. The remainder of the lungs are clear. MEDIASTINUM: No morphologically suspicious or pathologically enlarged lymph nodes are identified with in the mediastinum or bilateral axilla. BONES OF THE CHEST: No acute fracture. Fixation hardware at the levels of T1 and T2. No lytic or blastic lesions. HEART: The heart is of normal size, without pericardial effusion. IMPRESSION: No pulmonary embolus. No thoracic aortic dissection. Bibasilar atelectasis. Reviewed, dictated and finalized at location A.
--- NOTE | ~2025-06-28 | CT_ITS ---
History: Syncope, fall PROCEDURE: CT lumbar spine without intravenous contrast. COMPARISON: None TECHNIQUE: Multiple contiguous axial images of the lumbar spine were performed without the administration of int ravenous contrast. DLP: 530 mGy-cm FINDINGS: Straightening of the normal lordotic curvature of the lumbar spine is identified. Compression of the superior endplate of L1 is identified for which an acute fracture is suspected. Ir regular lucencies are identified within the vertebral body to the right and left of midline. Compression of the superior endplate of the L3 vertebral body is also noted, likely chronic. Osteophyte formation is identified at the levels of L3/L4 and L4/L5. Significant facet arthropathy is noted at multiple levels. Impression: Compression of the superior endplate of L1 is identified for which an acute fracture is suspected and for which clinical correlation is needed regarding point tenderness. Degenerative disease is also noted, as detailed above. Reviewed, dictated and finalized at location A. Impression: Compression of the superior endplate of L1 is identified for which an acute fra cture is suspected and for which clinical correlation is needed regarding point tenderness. Degenerative disease is also noted, as detailed above.
--- NOTE | ~2025-06-28 | CT_ITS ---
History: Syncope, fall PROCEDURE: CT cervical spine without intravenous contrast. COMPARISON: None TECHNIQUE: Multiple contiguous axial images of the cervical spine were performed without the administration of i ntravenous contrast. DLP: 354 mGy-cm FINDINGS: Posterior fixation from the level of C2-T2 is identified. Ankylosis of C3 through C7 is present. There are bridging endplate osteophytes at multiple levels in the cervical and proximal thoracic spin e, consistent with diffuse idiopathic skeletal hyperostosis (DISH). No acute periprosthetic fractures are present. The bilateral lung apices are unremarkable. No soft tissue abnormality is appreciated. The airway is patent. Impression: Significant degenerative disease, without acute fracture. Reviewed, dictated and finalized at location A. Impression: Significant degenerative disease, without acute fracture.
--- NOTE | ~2025-06-28 | XR_ITS ---
CHEST RADIOGRAPH CLINICAL HISTORY: SYNCOPE . COMPARISON: None available TECHNIQUE: Single portable view of the chest. FINDINGS The cardiomediastinal silhouette is unremarkable. The lungs are clear. IMPRESSION: No focal infiltrate or effusion. Reviewed, dictated and finalized at location A.
[2025-06-28 20:22] VITALS: BP 101/57; PULSE 63; RESP 13; O2SAT 96
--- OUTSIDE RECORDS SUMMARY | 2025-06-28 20:39 | XMS_ITS | Clinical Summary ---
Author Organization Unknown Care Team Providers Care Coremaker Supervisor Name Role Phone SHORT SEAM CHECKER, GLEN Unavailable Unavailable BERNARDINO PHYSICAL THERAPIST, GERRY Unavailable Unavailable CARLOS TIME MOTION ANALYST, TIFFANIE Mane ailable Unavailable MICKEY REGISTERED NURSE HORTICULTURE/FLORICULTURE TEACHER, MIGNON Stephania vailable Unavailable STELLA REGISTERED NURSE, MELCHOR Unavailable Unavailable LATHAM OCCUPATIONAL THERAPIST, CK Unavailable Unavailable Payers Payer Name Policy Type Policy Number Effective Date Expira tion Date MEDICARE [facility] [id number] Problems Condition Name Condition Details Condition Category Status Onset Date Resolution Date Last Treatment Date Treating Clinician Comments ENCOUNTER FOR OTHER ORTHOPEDIC AFTERCARE Active 03-06 00:00: 00 ESSENTIAL (PRIMARY) HYPERTENSION Active 11-23 00:00: 00 BENIGN PROSTATIC HYPERPLASIA WITHOUT LOWER URINRY TRACT SYMP Active 11-23 00:00: 00 PURE HYPERCHOLEST EROLEMIA, UNSPECIFIED Active 11-23 00:00: 00 CONSTIPATION , UNSPECIFIED Active 11-23 00:00: 00 GASTRO-ESOPH AGEAL REFLUX DISEASE WITHOUT ESOPHAGITIS Active 11-23 00:00: 00 ARTHRODESIS STATUS Active 02-21 00:00: 00 PERSONAL HISTORY OF NICOTINE DEPENDENCE Active 11-23 00:00: 00 HISTORY OF FALLING Active 11-23 00:00: 00 Allergies, Adverse Reactions, Alerts Allergy Name Allergy Type Status Severity Reaction(s) Onset Date Inactive Date Treating Clinician Comments NO KNOWN ALLERGIES Propensity to adverse reactions Active 03-16 10:22: 40 Medications Ordered Medication Name Filled Medication Name Start Date Stop Date Current Medication? Ordering Clinician Indication Dosage Frequency Signature (SIG) Comments Components acetaminoph en 500 mg tablet 03-19 00:00: 00 Yes [id number] PAIN 2 tablet 3 TIMES DAILY 2 tablet 3 TIMES DAILY (route: oral) Med Classific ation: Analgesic , Anti-infl ammatory or Antipyret ic amlodipine 10 mg tablet 03-19 00:00: 00 06-16 23:59 :00 No [id number] HTN 1 tablet DAILY 1 tablet DAILY (route: oral) Med Classific ation: Cardiovas cular Therapy Agents aspirin 81 mg tablet,cathie yed release 03-19 00:00: 00 06-16 23:59 :00 No [id number] BLOOD CLOT PREVENTION 1 tablet DAILY 1 tablet DAILY (route: oral) Med Classific ation: Hematolog ical Agents Colace 100 mg capsule 03-19 00:00: 00 03-26 23:59 :00 No [id number] CONSTIPATIO N 1 capsule 2 TIMES DAILY 1 capsule 2 TIMES DAILY (route: oral) Med Classific ation: Gastroint estinal Therapy Agents lisinopril 10 mg tablet 03-19 00:00: 00 06-16 23:59 :00 No [id number] HTN 1 tablet DAILY 1 tablet DAILY (route: oral) Med Classific ation: Cardiovas cular Therapy Agents Miralax 17 gram/dose oral powder 03-19 00:00: 00 Yes [id number] CONSTIPATIO N 17 g DAILY 17 g DAILY (route: oral) Med Classific ation: Gastroint estinal Therapy Agents omeprazole 20 mg capsule,del ayed release 03-19 00:00: 00 Yes [id number] INDIGESTION 1 capsule DAILY 1 capsule DAILY (route: oral) Med Classific ation: Gastroint estinal Therapy Agents oxycodone 5 mg capsule 03-19 00:00: 00 06-16 23:59 :00 No [id number] PAIN 1 capsule EVERY 4 HOURS 1 capsule EVERY 4 HOURS (route: oral) Med Classific ation: Analgesic , Anti-infl ammatory or Antipyret ic Pamelor 10 mg capsule 03-19 00:00: 00 06-16 23:59 :00 No [id number] DEPRESSION 1 capsule DAILY 1 capsule DAILY (route: oral) Med Classific ation: Central Nervous System Agents tamsulosin 0.4 mg capsule 03-19 00:00: 00 Yes [id number] BPH 1 capsule DAILY 1 capsule DAILY (route: oral) Med Classific ation: Genitouri nary Therapy atorvastati n 20 mg tablet 06-23 00:00: 00 Yes [id number] HIGH CHOLESTEROL 1 tablet DAILY 1 tablet DAILY (route: oral) Med Classific ation: Cardiovas cular Therapy Agents oxybutynin chloride ER 15 mg tablet,exte nded release 24 hr 06-23 00:00: 00 Yes [id number] OVERACTIVE BLADDER 1 tablet DAILY 1 tablet DAILY (route: oral) Med Classific ation: Genitouri nary Therapy Senna Lax 8.6 mg tablet 06-23 00:00: 00 Yes [id number] CONSTIPATIO N 1 tablet DAILY 1 tablet DAILY (route: oral) Med Classific ation: Gastroint estinal Therapy Agents Tab-A-Louise 400 mcg tablet 06-23 00:00: 00 Yes [id number] SUPPLEMENT 1 tablet DAILY 1 tablet DAILY (route: oral) Med Classific ation: Electroly te Balance-N utritiona l Products valsartan 80 mg-hydrochl orothiazide 12.5 mg tablet 06-23 00:00: 00 Yes [id number] HTN 1 tablet DAILY 1 tablet DAILY (route: oral) Med Classific ation: Cardiovas cular Therapy Agents Immunizations Ordered Immunization Name Filled Immunization Name Date Status Comments Refusal Reason PNEUMOCOCCAL - DISCUSSED AND DECLINED, PPV 2025-03-20 00:00:00 INFLUENZA, TIV (INACTIVATED) 2024-09-13 00:00:00 Vital Signs Vital Name Observation Time Observation Value Commen ts Temperature 2025-06-27 13:21:00.000 97.8 [degF] Temperature 2025-06-23 13:58:00.000 97.4 [degF] Temperature 2025-06-23 12:35:00.000 97.4 [degF] Temperature 2025-06-23 11:54:00.000 97.4 [degF] Temperature 2025-05-30 09:48:00.000 97.2 [degF] BMI (%) 2025-06-23 11:54:00.000 27 kg/m2 Height 2025-06-23 11:54:00.000 68 [in_us] Pulse 2025-06-27 13:21:00.000 76 /min Pulse 2025-06-23 13:58:00.000 74 /min Pulse 2025-06-23 12:35:00.000 74 /min Pulse 2025-06-23 11:54:00.000 74 /min Pulse 2025-05-30 09:48:00.000 77 /min O2 Saturation (%) 2025-06-27 13:21:00.000 98 % O2 Saturation (%) 2025-06-23 13:58:00.000 97 % O2 Saturation (%) 2025-06-23 12:35:00.000 97 % O2 Saturation (%) 2025-06-23 11:54:00.000 97 % O2 Saturation (%) 2025-05-30 09:48:00.000 98 % Respirations 2025-06-27 13:21:00.000 16 /min Respirations 2025-06-23 13:58:00.000 18 /min Respirations 2025-06-23 12:35:00.000 18 /min Respirations 2025-06-23 11:54:00.000 18 /min Respirations 2025-05-30 09:48:00.000 18 /min Weight (lbs) 2025-06-23 11:54:00.000 180 [lb_av] Systolic Blood Pressure 2025-06-27 13:21:00.000 138 mm [Hg] Systolic Blood Pressure 2025-06-23 13:58:00.000 132 mm [Hg] Systolic Blood Pressure 2025-06-23 12:35:00.000 132 mm [Hg] Systolic Blood Pressure 2025-06-23 11:54:00.000 132 mm [Hg] Systolic Blood Pressure 2025-05-30 09:48:00.000 134 mm [Hg] Diastolic Blood Pressure 2025-06-27 13:21:00.000 82 mm [Hg] Diastolic Blood Pressure 2025-06-23 13:58:00.000 74 mm [Hg] Diastolic Blood Pressure 2025-06-23 12:35:00.000 74 mm [Hg] Diastolic Blood Pressure 2025-06-23 11:54:00.000 74 mm [Hg] Diastolic Blood Pressure 2025-05-30 09:48:00.000 72 mm [Hg] Plan of Treatment Planned Activity Planned Date Details Comments Future Scheduled Test EACH ORDER ED IN-HOME OR TELEHEALTH VISIT, THE SKILLED NURSE WILL CONDUCT A COMPREHENSIVE ASSESSMENT INCLUDING VITAL SIGNS, PAIN, SAFETY, MENTAL/COGNITIVE/PSYCHOSOCIAL STATUS, MED MANAGEMENT, NUTRITION, SKIN INTEGRITY, PRESSURE ULCER PREVENTION, AND PATIENT/CAREGIVER ABILITY TO SUPPORT ORDERED CARE. SKILLED NURSE WILL INSTRUCT ON DISEASE PROCESS, MED MGMT., FALL PREVENTION AND SAFETY, INFECTION CONTROL AND PREVENTION, WARNING SIGNS, ADDRESS RESULTS OUTSIDE OF ORDERED PARAMETERS LISTED ON CARE PLAN, AND COORDINATE DISCHARGE WITH THE TREATING PROVIDER. MAY ACCEPT ORDERS FROM THE FOLLOWING PROVIDER(S) WHO WILL BE CONSULTING ON THE CERTIFIED CARE PLAN: GLEN STRANGE SEAM CHECKER [code = EACH ORDERED IN-HOME OR TELEHEALTH VISIT, THE SKILLED NURSE WILL CONDUCT A COMPREHENSIVE ASSESSMENT INCLUDING VITAL SIGNS, PAIN, SAFETY, MENTAL/COGNITIVE/PSYCHOSOCIAL STATUS, MED MANAGEMENT, NUTRITION, SKIN INTEGRITY, PRESSURE ULCER PREVENTION, AND PATIENT/CAREGIVER ABILITY TO SUPPORT ORDERED CARE. SKILLED NURSE WILL INSTRUCT ON DISEASE PROCESS, MED MGMT., FALL PREVENTION AND SAFETY, INFECTION CONTROL AND PREVENTION, WARNING SIGNS, ADDRESS RESULTS OUTSIDE OF ORDERED PARAMETERS LISTED ON CARE PLAN, AND COORDINATE DISCHARGE WITH THE TREATING PROVIDER. MAY ACCEPT ORDERS FROM THE FOLLOWING PROVIDER(S) WHO WILL BE CONSULTING ON THE CERTIFIED CARE PLAN: GLEN STRANGE NP] Future Scheduled Test THE [facility] TIFYING PHYSICIAN, ASSOCIATED PHYSICIAN, NPP OR PA WITHIN THE SAME GROUP MAY APPROVE AND SIGN THE ORDER (ON ANY PAGE) ATTESTING THAT THE COMPREHENSIVE OUTCOME ASSESSMENTS, EVALUATIONS, AND HOME HEALTH CERTIFICATION PLANS SUPPORT HOMEBOUND STATUS. HOME HEALTH WEB-PORTAL DOCUMENTATION ACCESSED BY THE PHYSICIAN MUST BE INCORPORATED INTO THE MEDICAL RECORD TO CORROBORATE THE PHYSICIAN, NPP, OR PAS F2F ENCOUNTER TO SUPPORT ELIGIBILITY FOR HOME HEALTH SERVICES. [code = THE CERTIFYING PHYSICIAN, ASSOCIATED PHYSICIAN, NPP OR PA WITHIN THE SAME GROUP MAY APPROVE AND SIGN THE ORDER (ON ANY PAGE) ATTESTING THAT THE COMPREHENSIVE OUTCOME ASSESSMENTS, EVALUATIONS, AND HOME HEALTH CERTIFICATION PLANS SUPPORT HOMEBOUND STATUS. HOME HEALTH WEB-PORTAL DOCUMENTATION ACCESSED BY THE PHYSICIAN MUST BE INCORPORATED INTO THE MEDICAL RECORD TO CORROBORATE THE PHYSICIAN, NPP, OR PAS F2F ENCOUNTER TO SUPPORT ELIGIBILITY FOR HOME HEALTH SERVICES.] Future Scheduled Test HOME HEALT H NURSE INSTRUCTED PATIENT/CAREGIVER ON POST-OP LAMINECTOMY MANAGEMENT INCLUDING TAKING DAILY TEMPERATURES, KEEPING A SYMPTOM LOG, WHEN TO CALL THE AGENCY OR SURGEON AND ORDERED ACTIVITIES SUCH DONT PUSH, PULL, BEND, OR TWIST FOR [NO.] OF WEEKS AFTER SURGERY, DO NOT SIT FOR MORE THAN [20 TO 30] MINUTES AT A TIME. WALK MUCH YOU CAN INCLUDING UP AND DOWN STAIRS. DO NOT LIFT MORE THAN [NO.] LBS. LIMIT CAR TRIPS TO [NO. 20-30] MINUTES AT A TIME IN THE CAR, AND DO NOT SOAK IN BATHTUB, HOT TUB, OR POOL UNTIL SURGEON APPROVES. [code = HOME HEALTH NURSE INSTRUCTED PATIENT/CAREGIVER ON POST-OP LAMINECTOMY MANAGEMENT INCLUDING TAKING DAILY TEMPERATURES, KEEPING A SYMPTOM LOG, WHEN TO CALL THE AGENCY OR SURGEON AND ORDERED ACTIVITIES SUCH DONT PUSH, PULL, BEND, OR TWIST FOR [NO.] OF WEEKS AFTER SURGERY, DO NOT SIT FOR MORE THAN [20 TO 30] MINUTES AT A TIME. WALK MUCH YOU CAN INCLUDING UP AND DOWN STAIRS. DO NOT LIFT MORE THAN [NO.] LBS. LIMIT CAR TRIPS TO [NO. 20-30] MINUTES AT A TIME IN THE CAR, AND DO NOT SOAK IN BATHTUB, HOT TUB, OR POOL UNTIL SURGEON APPROVES.] Future Scheduled Test SKILLED NU RSE TO INSTRUCT PATIENT/CAREGIVER ON WHAT IS HYPERTENSION, HOW TO CHECK HIS/HER BLOOD PRESSURE, AND STRATEGIES TO USE TO CONTROL BLOOD PRESSURE SUCH MONITORING BP, MONITORING WEIGHTS, ENGAGING IN PHYSICAL ACTIVITY AIMING FOR 150 MINUTES SPREAD THROUGHOUT THE WEEK. [code = SKILLED NURSE TO INSTRUCT PATIENT/CAREGIVER ON WHAT IS HYPERTENSION, HOW TO CHECK HIS/HER BLOOD PRESSURE, AND STRATEGIES TO USE TO CONTROL BLOOD PRESSURE SUCH MONITORING BP, MONITORING WEIGHTS, ENGAGING IN PHYSICAL ACTIVITY AIMING FOR 150 MINUTES SPREAD THROUGHOUT THE WEEK.] Future Scheduled Test HOME HEALT H NURSE WILL ASSESS FOR COMPLICATIONS RELATED TO ANTIPLATELET USE AND INSTRUCT PATIENT/CAREGIVER ABOUT PRECAUTIONS TO FOLLOW AND SIGNS/SYMPTOMS TO REPORT. [code = HOME HEALTH NURSE WILL ASSESS FOR COMPLICATIONS RELATED TO ANTIPLATELET USE AND INSTRUCT PATIENT/CAREGIVER ABOUT PRECAUTIONS TO FOLLOW AND SIGNS/SYMPTOMS TO REPORT.] Goal Patient Goal - S OC- 03/20/25- TO GET STRONGER RECERT- 05/15/25- STAY OUT OF THE HOSPITAL [facility]- 06/23/25- GET STRONGER Goal 2025-05-15 Patient Goal - S OC- 03/20/25- TO GET STRONGER Goal 2025-06-23 Patient Goal - S OC- 03/20/25- TO GET STRONGER RECERT- 05/15/25- STAY OUT OF THE HOSPITAL Goal Provider Goal - PATIENT/CAREGIVER WILL DEMONSTRATE THE USE OF THE SYMPTOM LOG, VITAL SIGN LOGS, AND ADHERENCE TO ORDERED STRATEGIES THAT PREVENT BLOOD CLOTS, INFECTIONS, AND COMPLICATIONS BY THE END OF HOME HEALTH SERVICES. Goal Provider Goal - A PLAN OF CARE WILL BE ESTABLISHED THAT MEETS ALL PATIENT'S CUSTODIAL NEEDS AND COUNTER SIGNED BY PHYSICIAN. Goal Provider Goal - PATIENT WILL BE FREE OF FALLS AND HOSPITALIZATIONS THROUGHOUT EPISODE OF CARE. PATIENT/CAREGIVER WILL UNDERSTAND AND ADHERE TO ORDERED DIET. PATIENT/CAREGIVER WILL INDEPENDENTLY MANAGE MEDICATIONS, UNDERSTAND ANY CHANGES, SIDE EFFECTS TO REPORT BY DISCHARGE. PATIENT WILL BE FREE OF INFECTION AND UNDERSTAND MEASURES OF PREVENTION. PATIENT/CAREGIVER WILL COLLABORATE WITH SKILLED NURSE TO DEVELOP POC AT SOC AND ON AN ONGOING BASIS UPDATES ARE NEEDED. UNDERSTAND PROGRESS MADE/DISCHARGE PLANNING. ADDITIONAL ORDERS WILL BE RECEIVED FROM ALTERNATE PHYSICIANS IN A TIMELY MANNER. Goal Provider Goal - PATIENT/CAREGIVER WILL INDEPENDENTLY DEMONSTRATE HOW TO CHECK HIS/HER OWN BP AND VERBALIZE WHAT STRATEGIES CAN ASSIST TO CONTROL BLOOD PRESSURE. Goal Provider Goal - PATIENT/CAREGIVER WILL VERBALIZE UNDERSTANDING OF ANTIPLATELET COMPLICATIONS TO REPORT AND PRECAUTIONS TO FOLLOW BY END OF HOME HEALTH SERVICES. Progress Notes Progress Notes <paragraph>[Visit Date: 2024 by TIFFANIE GONZALEZ TIME MOTION ANALYST]:</paragraph><paragraph>PATIENT SEEN FOR SKILLED THERAPY DUE TO LUMBAR DECOMPRESSION PROCEDURE WHICH HAS CAUSED WEAKNESS AND DECONDITIONING REQUIRING USE OF WW FOR SAFE NAVIGATION IN HOME AND RELY MORE HEAVILY ON NIECE WITH FUNCTIONAL TASKS. PTNT HIGHLY MOTIVATED TO IMPROVE FUNCTIONAL TASKS AND PERFORMS ALL TASKS REQUESTED WITH 50% ACCURACY WITH PROVIDED CUES. PTNT ALSO TOLERATED INCREASE GT DISTANCES UP TO 75', CHAIR RISE TEST IMPROVED FROM 3 TO 5 WITH B UE SUPPORT, AND STANDING LE HEP FACILITATED TO ASSIST WITH STRENGTH AND ENDURANCE. THERAPIST PROVIDED EDUCATION ON FALL PREVENTION STRATEGIES, PAIN CONTROL STRATEGIES, AND BENEFITS OF HEP/WALKING PROGRAM TO ASSIST WITH STABILITY DUE TO FALL RISK FROM WEAKNESS AND N/T IN B FEET. PTNT AGREES AND V/U OF ALL. ONGOING THERAPY RECOMMENDED TO ASSESS CARRYOVER OF NEWLY FACILITATED STANDING LE HEP AND IMPROVE GT TECHNIQUE TO IMPROVE INDEPENDENCE IN HOME</paragraph> <paragraph>[Visit Date: 2024 by MELCHOR DOUGLAS REGISTERED NURSE]:</paragraph><paragraph>[facility] VISIT COMPLETED AFTER HOSPITAL/REHAB STAY POST LAMINECTOMY. PATIENT DISCHARGED WITH ORDERS FOR SN, PT, AND OT. UPON ARRIVAL, GREETED BY PATIENT AT THE DOOR WITH WALKER. APPEAR IN NO ACUTE DISTRESS. IN AGREEMENT TO CONTINUE HH SERVICES. VSS. ASSESSMENT COMPLETE. REPORTS GOOD PO INTAKE AND REGULAR BOWEL AND BLADDER HABITS. DOES HAVE COMPLAINTS ABOUT FREQUENCY OF URINATING. PATIENT HAS SPOKEN TO PCP ABOUT CONCERNS AND WAITING FOR CALL BACK. RATES PAIN TO BACK 3/10. LUNG SOUNDS CLEAR. DENIES COUGH/SOB WITH REST/FALLS/CHEST PAIN. SKIN CHECK PERFORMED. INCISION TO BACK IS HEALED. PATIENT SAW SURGEON THIS WEEK. REPORTS FEELING GOOD. WANTS TO IMPROVE WITH WALKING. EDUCATION PROVIDED ON MEDICATIONS, HOSPITAL DC INSTUCTIONS, CARDIAC PRECAUTIONS, INFECTION CONTROL, FALL PRECAUTIONS, SAFETY PRECAUTIONS, AGENCY BOOKLET, AND S/S TO REPORT. PATIENT VERBALIZED UNDERSTANDING. DENIES ANY OTHER QUESTIONS/CONCERNS. UPON NURSE DEPARTURE, PATIENT STABLE.</paragraph> Encounters Start Date/Time End Date/Time Encounter Type Admission Type Attending Clinicians [facility] Facility Care Department Encounter ID Discharge Date Discharge Status Discharge Condition Discharge Reason Percent Goals Met 2025-05-19 00:00:00 2025-07-17 00:00:00 Outpatient GEOVANNARTMELCHOR BECKMAN [facility] [id number] 30.77
--- OUTSIDE RECORDS SUMMARY | 2025-06-28 20:39 | XMS_ITS | Clinical Summary ---
Author Organization [facility] Address [facility] [place] [address] Care Team Providers Care Shot Packer Name Role Phone Yamileth Conrad ADMINISTRATIVE PERSONAL ASSISTANT Primary Care Provider [phone] Social History Tobacco Use Types Packs/Day Years Used Date Smoking Tobacco: Never Assessed Sex and Gender Information Value Date Recorded Sex Assigned at Not on file Legal Sex Male 4:11 PM CDT Gender Identity Not on file Sexual Orientation Not on file Plan of Treatment Health Maintenance Due Date Last Done Comments Colorectal Cancer Screening Colonoscopy (10 Years) 1953 Hepatitis C 1971 DTaP, Tdap and Td Vaccines ( 1 - Tdap) 1972 Pneumococcal Vaccine: 50+ Ye ars (1 of 1 - PCV) 2003 Zoster Vaccines (1 of 2) 2003 Annual Medicare Wellness Visit 2018 COVID-19 Vaccine ( - 2023-2 5 season) 2024 RSV Immunization or 60+ Years (1 - 1-dose 75+ series) 2028 Meningococcal B Vaccine Aged Out No l onger eligible based on patient's age to complete this topic Meningococcal Vaccine Aged Out No margy sharon eligible based on patient's age to complete this topic RSV Immunizations Under 20 Months Aged Out No longer eligible based on patient's age to complete this topic Insurance MEDICARE Care Teams Shot Packer Relationship Specialty Start Date End Date Yamileth Conrad NP [address] [place] [address] PCP - General Nurse Practitioner Family 03/16/25
--- OUTSIDE RECORDS SUMMARY | 2025-06-28 20:39 | XMS_ITS | Patient Health Record ---
Author Organization [facility] Address [address] [place] [address] Care Team Providers Care Sales And Service Agent Name Role Phone Tika Jose Primary Care Provider Ronit Ortiz Unavailable [phone] Yamileth Conrad Unavailable [phone] Allergies No Known Allergies Results Component Value Reference Range Notes Hemoglobin A1c* Reviewed date:01/04/2025 02:42:48 PM Interpretation:Normal Performing Lab: Notes/Report: Normal TSH Rfx on Abnormal to Free T4 Reviewed date:01/04/2025 02:42:48 PM Interpretation:Normal Performing Lab: Notes/Report: Normal PSA Total+% Free Reviewed date:01/04/2025 02:42:48 PM Interpretation: Performing Lab: Notes/Report: Urinalysis In-House, Routine Reviewed date:06/22/2025 11:52:31 AM Interpretation: Performing Lab: Notes/Report: Urine-Color yellow Appearance Clear Leukocytes neg Nitrite, Urine neg Urobilinogen,Semi-Qn 0.2 Protein neg pH 7.0 Occult Blood trace-intact Specific Brashear 1.020 Ketones neg Bilirubin neg Glucose neg Colonoscopy Reviewed date:12/22/2024 04:53:21 PM Interpretation:Negative Performing Lab: Notes/Report: Negative Colonoscopy Reviewed date:12/26/2024 10:49:29 AM Interpretation:Normal Performing Lab: Notes/Report: Normal Reason For Referral Reason Colon cancer screeni ng Diagnosis 1 Screening for colon cancer (Z12.11) Referral Organization [facility] Referring Provider First Name Yamileth Referring Provider Last Name Short Referring Provider [facility] norah Referred Provider Specialty Gastroentero logy General Notes Bell Raza 10:34:12 AM >Referral faxed to [facility], Bell Raza 11/10/2024 10:34:42 AM >Referral letter & message sent to client., Bell Raza 05/22/2025 05:37:15 PM >Completed 11/30/24, notes in chart, & reviewed by REAL TIME ANALYST. Closing referral. Clinical Notes [facility] MD [facility], [address], [place] [address], , Referral Priority Routine Reason Ongoing urgency, hes itancy, nocturia, little relief with Tamsulosin Diagnosis 1 Benign prostatic hyp erplasia with lower urinary tract symptoms (N40.1) Referral Organization [facility] Referring Provider First Name Yamileth Referring Provider Last Name Short [facility] Referred Provider Specialty Urology General Notes Bell Raza 05:34:35 PM >Referral completed, notes in chart 02/10/25, & reviewed by REAL TIME ANALYST. Closing referral. Clinical Notes [facility], [address] [place] [address] [address], [place]. [address], , Referral Priority Routine Medications Medication SIG (Take, Route, Frequency, Duration) Notes Start Date End Date Status Meloxicam 15 MG 1 tablet Orally Once a day; Duration: 30 days Not-Taking Omeprazole 20 MG 1 capsule 1/2 to 1 hour before morning meal Orally Once a day; Duration: 30 days 04/13/2025 Active Escitalopram Oxalate 5 MG 1 tablet Orally Once a day; Duration: 30 days 04/13/2025 Active Solifenacin Succinate 10 MG 1 tablet Orally Once a day; Duration: 30 day(s) 06/23/2025 Active Senna 8.6 MG 1 tablet at bedtime as needed Orally Once a day; Duration: 30 days CONSTIPATION 04/13/2025 Active Multi Vitamin - 1 tablet Orally Once a day; Duration: 30 days please mail to pt. 11/02/2024 Active Tamsulosin HCl 0.4 MG 2 capsules Orally Once a day; Duration: 30 days Active MiraLax Mix-In Lindsay 17 GM 1 packet mixed with 8 ounces of fluid Orally Once a day; Duration: 30 days please mail to pts. home 12/28/2024 Active Valsartan-hydroCHL OROthiazide 80-12.5 MG 1 tablet Orally Once a day; Duration: 30 days STOP LISINOPRIL, HCTZ, AMLODIPINE, NORTRIPTYLLINE 05/23/2025 Active Atorvastatin Calcium 20 MG 1 tablet Orally Once a day; Duration: 30 days PLEASE MAIL TO PTS HOME [...] W/U Status Risk Notes Problem Essential hypertension (88567095) Essential (primary) hypertension (I10) Active confirmed Problem Hyperlipidemia (19443508) Hyperlipidemia (E78.5) Active confirmed Problem Anxiety (32092509) Anxiety (F41.9) Active confi rmed Problem Constipation (06355462) Constipation (K59.00) Active confirmed Problem Overweight (533587094) Over weight (E66.3) Active confirmed Problem Lower urinary tract symptoms due to benign prostatic hypertrophy (94538886362167) Benign prostatic hyperplasia with lower urinary tract symptoms (N40.1) Active confirmed Problem Gastroesophageal reflux disease (309124035) GERD without esophagitis (K21.9) Active confirmed Problem Neurogenic claudication (753622134) Spinal stenosis of lumbar region with neurogenic claudication (M48.062) Active confirmed Vital Signs Heart Rate 101 /min 06/22/2025 Temperature 98.5 degrees Fahrenheit 02/08/2025 Respiratory Rate 16 /min 06/22/2025 Blood pressure diastolic 70 mm Hg 06/22/2025 Oximetry 98 % 06/22/2025 Height 68 in 06/22/2025 Blood pressure systolic 128 mm Hg 06/22/2025 Weight 177.1 lbs 06/22/2025 BMI 26.93 kg/m2 06/22/2025 Encounters Encounter Location Date Provider Diagnosis [address] [place] [address] 02/08/2025 Yamileth Conrad [address] [address] 11/02/2024 Yamileth Conrad Establishing care wi th [...] symptoms N40.1 and Former cigarette smoker Z87.[address] [address] 11/02/2024 Yamileth Conrad Screening for diabet es mellitus Z13.1 ; Screening for deficiency anemia Z13.0 ; Hyperlipidemia E78.5 ; Screening for metabolic disorder Z13.228 ; Screening for thyroid disorder Z13.29 and Screening for prostate cancer Z12.[address] [place] [address] 11/03/2024 Ronit Ortiz Encounter for screen ing examination for mental health and behavioral disorders Z13.[address] [place] [address] 11/04/2024 Yamileth [facility] [address] [place] [address] [place] [address] 11/22/2024 Ronit Ortiz Encounter for screen ing examination for mental health and behavioral disorders Z13.[address] [place] [address] 11/28/2024 Ronit Ortiz Encounter for screen ing examination for mental health and behavioral disorders Z13.[address] [place] [address] 12/28/2024 Yamileth Conrad Nutritional counseli ng Z71.3 ; Encounter for immunization Z23 ; Hypertension I10 ; Essential (primary) hypertension I10 ; Hyperlipidemia E78.5 ; Back pain M54.9 ; Benign prostatic hyperplasia with lower urinary tract symptoms N40.1 and Constipation K59.[address] [place] [address] 02/08/2025 Yamileth Conrad Encounter for preprocedural cardiovascular examination Z01.810 ; Screening for deficiency anemia Z13.0 ; Screening for metabolic disorder Z13.228 and Nutritional counseling Z71.[address] [place] [address] 04/13/2025 Jose Villela GERD without esophag itis K21.9 ; Constipation K59.00 ; Anxiety F41.9 and Over weight E66.[address] [place] [address] 05/23/2025 Jose Villela Cardiac murmur R01.1 ; Essential (primary) hypertension I10 ; Spinal stenosis of lumbar region with neurogenic claudication M48.062 ; Back pain M54.9 ; Hyperlipidemia E78.5 and Over weight E66.[address] [place] [address] 06/22/2025 Jose Villela Essential (primary) hypertension I10 ; Benign prostatic hyperplasia with lower urinary tract symptoms N40.1 ; Constipation K59.00 and Over weight E66.3 [facility] [place] [address] 11/02/2024 Yamileth Conrad [facility] [place] [address] 11/03/2024 Yamileth [place] [address] [place] [address] 11/15/2024 Yamileth Conrad [facility] [address] [address] 11/30/[address] [place] [address] 01/30/2025 Yamileth Conrad [address] [place] [address] 02/09/2025 Yamileth Conrad Abnormal electrocardiogram [ECG] [EKG] R94.31 [facility] [address] [place] [address] 02/09/2025 Yamileth Conrad [facility] [address] [place] [address] 02/09/2025 Yamileth Conrad [facility] [address] [place] [address] 02/22/2025 Yamileth [facility] [address] [place] [address] 02/27/2025 Yamileth [facility] [address] [place] [address] 02/28/2025 Yamileth Conrad [facility] [address] [place] [address] 02/28/2025 Yamileth [facility] [address] [facility] [place] [address] 03/07/2025 Yamileth [facility] [address] [place] [address] 03/16/2025 Yamileth [facility] [address] [facility] [place] [address] 03/20/2025 Yamileth Conrad [address] [place] [address] 05/01/2025 Jose Villela [address] [place] [address] 05/18/2025 Jose Villela GERD without esophag itis K21.9 ; Constipation K59.00 ; Anxiety F41.9 ; Nutritional counseling Z71.3 ; Essential (primary) hypertension I10 ; Hyperlipidemia E78.5 and Back pain M54.[address] [place] [address] 06/22/2025 Jose Villela Benign prostatic hyperplasia with lower urinary tract symptoms N40.1 Assessments Encounter Date Diagnosis (ICD Code) Assessment [...] May also contact the 24-hour crisis hotline ([facility]), refer to the closest emergency room or [...] May also contact the 24-hour crisis hotline ([facility]), refer to the closest emergency room or [...] May also contact the 24-hour crisis hotline ([facility]), refer to the closest emergency room or [...] adults. 12/28/2024 Nutritional counseling (ICD-10 - Z71.3) 02/08/2025 Encounter for preprocedural cardiovascular examination (ICD-10 - Z01.810) 02/08/2025 Screening for deficiency anemia (ICD-10 - Z13.0) 02/09/2025 Abnormal electrocardiogram [ECG] [EKG] (ICD-10 - R94.31) 04/13/2025 Constipation (ICD-10 - K59.00) 04/13/2025 GERD without esophagitis (ICD-10 - K21.9) 05/18/2025 GERD without esophagitis (ICD-10 - K21.9) 05/23/2025 Essential (primary) hypertension (ICD-10 - I10) 05/23/2025 Cardiac murmur (ICD-10 - R01.1) CALCIFIED AORTIC VALVE BY ECHO. MILD MITRAL INSUFFICIENCY (UNABLE TO HEAR THE LATTER). 06/22/2025 Essential (primary) hypertension (ICD-10 - I10) 06/22/2025 Benign prostatic hyperplasia with lower urinary tract symptoms (ICD-10 - N40.1) 06/22/2025 Benign prostatic hyperplasia with lower urinary tract symptoms (ICD-10 - N40.1) 05/18/2025 Constipation (ICD-10 - K59.00) 06/22/2025 Constipation (ICD-10 - K59.00) 05/23/2025 Spinal stenosis of lumbar region with neurogenic claudication (ICD-10 - M48.062) 04/13/2025 Anxiety (ICD-10 - F41.9) 02/08/2025 Screening for metabolic disorder (ICD-10 - Z13.228) 11/02/2024 Screening for deficiency anemia (ICD-10 - Z13.0) 12/28/2024 Hypertension (ICD-10 - I10) 11/02/2024 Screening for metabolic disorder (ICD-10 - Z13.228) 11/02/2024 Hyperlipidemia (ICD-10 - E78.5) 11/02/2024 Essential (primary) hypertension (ICD-10 - I10) 12/28/2024 Essential (primary) hypertension (ICD-10 - I10) 06/22/2025 Over weight (ICD-10 - E66.3) 05/23/2025 Back pain (ICD-10 - M54.9) 05/18/2025 Anxiety (ICD-10 - F41.9) 04/13/2025 Over weight (ICD-10 - E66.3) 05/18/2025 Nutritional counseling (ICD-10 - Z71.3) 05/23/2025 Hyperlipidemia (ICD-10 - E78.5) 12/28/2024 Hyperlipidemia (ICD-10 - E78.5) 02/08/2025 Nutritional counseling (ICD-10 - Z71.3) 11/02/2024 Hyperlipidemia (ICD-10 - E78.5) 11/02/2024 Screening for metabolic disorder (ICD-10 - Z13.228) 11/02/2024 Screening for thyroid disorder (ICD-10 - Z13.29) 11/02/2024 Screening for thyroid disorder (ICD-10 - Z13.29) 12/28/2024 Back pain (ICD-10 - M54.9) 05/18/2025 Essential (primary) hypertension (ICD-10 - I10) 05/18/2025 Hyperlipidemia (ICD-10 - E78.5) 05/23/2025 Over weight (ICD-10 - E66.3) 12/28/2024 Benign prostatic hyperplasia with lower urinary tract symptoms (ICD-10 - N40.1) 11/02/2024 Screening for diabetes mellitus (ICD-10 - Z13.1) 11/02/2024 Screening for prostate cancer (ICD-10 - Z12.5) 11/02/2024 Screening for colon cancer (ICD-10 - Z12.11) 12/28/2024 Constipation (ICD-10 - K59.00) 05/18/2025 Back pain (ICD-10 - M54.9) 11/02/2024 Screening for abdominal aortic aneurysm (ICD-10 [...] may self-administer their own oral medications per [place] Protocol. Plan Of Treatment Pending Test Test Name Order Date CBC With Differential/Platelet* 02/09/20 CMP 14 Comprehensive Metabolic Panel* Future Test Test Name Order Date Electrocardiogram (EKG), IH 02/08/2025 Echocardiogram 02/09/2025 Basic Metabolic Panel (8)* 06/22/2025 Insurance Providers Payer Name Payer Address Payer Phone Subscriber Number Group Number Insured Name Patient Relationship to Insured Coverage Start Date Coverage End Date MEDICARE PART A [address] [place] [address] [id number] Federico Shirley Self - patient is the insured 4 MEDICAID [address] [place] [address] [id number] Federico Shirley Self - patient is the insured 4 5 Medical (General) History Medical History History ICD Code hypertension hyperlipidemia chronic low back pain BPH Surgical History Surgery Date(Month/Year) right arm blood infection 74 back 88 cervical 89 Neck Surgery 02/2025 Back Surgery 05/2025 Hospitalization History Reason Date(Month/Year) Inpatient Detox x1
--- OUTSIDE RECORDS SUMMARY | 2025-06-28 20:39 | XMS_ITS | Clinical Summary ---
Author Organization Unknown Care Team Providers Care Blood Donor Unit Assistant Name Role Phone SHORT INDUSTRIAL PSYCHOLOGY TEACHER, GLEN Unavailable Unavailable BERNARDINO PHYSICAL THERAPIST, GERRY Unavailable Unavailable CARLOS RAILROAD SURVEYOR, TIFFANIE Mane ailable Unavailable MICKEY REGISTERED NURSE RADIOLOGY SUPERVISOR, MIGNON Stephania vailable Unavailable STELLA REGISTERED NURSE, MELCHOR Unavailable Unavailable LATHAM OCCUPATIONAL THERAPIST, CK Unavailable Unavailable Payers Payer Name Policy Type Policy Number Effective Date Expira tion Date MEDICARE [facility] [id number] Problems Condition Name Condition Details Condition Category [...] 500 mg tablet 03-19 00:00: 00 Yes [id number] PAIN 2 tablet 3 TIMES DAILY 2 tablet 3 TIMES DAILY (route: oral) Med Classific ation: Analgesic , Anti-infl ammatory or Antipyret ic amlodipine 10 mg tablet 03-19 00:00: 00 06-16 23:59 :00 No [id number] HTN 1 tablet DAILY 1 tablet DAILY (route: oral) Med Classific ation: Cardiovas cular Therapy Agents aspirin 81 mg tablet,cathie yed release 03-19 00:00: 00 06-16 23:59 :00 No [id number] BLOOD CLOT PREVENTION 1 tablet DAILY 1 tablet DAILY (route: oral) Med Classific ation: Hematolog ical Agents Colace 100 mg capsule 03-19 00:00: 00 03-26 23:59 :00 No [id number] CONSTIPATIO N 1 capsule 2 TIMES DAILY 1 capsule 2 TIMES DAILY (route: oral) Med Classific ation: Gastroint estinal Therapy Agents lisinopril 10 mg tablet 03-19 00:00: 00 06-16 23:59 :00 No [id number] HTN 1 tablet DAILY 1 tablet DAILY (route: oral) Med Classific ation: Cardiovas cular Therapy Agents Miralax 17 gram/dose oral powder 03-19 00:00: 00 Yes [id number] CONSTIPATIO N 17 g DAILY 17 g DAILY (route: oral) Med Classific ation: Gastroint estinal Therapy Agents omeprazole 20 mg capsule,del ayed release 03-19 00:00: 00 Yes [id number] INDIGESTION 1 capsule DAILY 1 capsule DAILY (route: oral) Med Classific ation: Gastroint estinal Therapy Agents oxycodone 5 mg capsule 03-19 00:00: 00 06-16 23:59 :00 No [id number] PAIN 1 capsule EVERY 4 HOURS 1 capsule EVERY 4 HOURS (route: oral) Med Classific ation: Analgesic , Anti-infl ammatory or Antipyret ic Pamelor 10 mg capsule 03-19 00:00: 00 06-16 23:59 :00 No [id number] DEPRESSION 1 capsule DAILY 1 capsule DAILY (route: oral) Med Classific ation: Central Nervous System Agents tamsulosin 0.4 mg capsule 03-19 00:00: 00 Yes [id number] BPH 1 capsule DAILY 1 capsule DAILY (route: oral) Med Classific ation: Genitouri nary Therapy atorvastati n 20 mg tablet 06-23 00:00: 00 Yes [id number] HIGH CHOLESTEROL 1 tablet DAILY 1 tablet DAILY (route: oral) Med Classific ation: Cardiovas cular Therapy Agents oxybutynin chloride ER 15 mg tablet,exte nded release 24 hr 06-23 00:00: 00 Yes [id number] OVERACTIVE BLADDER 1 tablet DAILY 1 tablet DAILY (route: oral) Med Classific ation: Genitouri nary Therapy Senna Lax 8.6 mg tablet 06-23 00:00: 00 Yes [id number] CONSTIPATIO N 1 tablet DAILY 1 tablet DAILY (route: oral) Med Classific ation: Gastroint estinal Therapy Agents Tab-A-Louise 400 mcg tablet 06-23 00:00: 00 Yes [id number] SUPPLEMENT 1 tablet DAILY 1 tablet DAILY (route: oral) Med Classific ation: Electroly te Balance-N utritiona l Products valsartan 80 mg-hydrochl orothiazide 12.5 mg tablet 06-23 00:00: 00 Yes [id number] HTN 1 tablet DAILY 1 tablet DAILY [...] ON THE CERTIFIED CARE PLAN: GLEN STRANGE INDUSTRIAL PSYCHOLOGY TEACHER [code = EACH ORDERED IN-HOME OR TELEHEALTH [...] GLEN STRANGE NP] Future Scheduled Test [facility] TIFYING PHYSICIAN, ASSOCIATED PHYSICIAN, NPP OR PA [...] WILL BE ESTABLISHED THAT MEETS ALL PATIENT'S ALF NEEDS AND COUNTER SIGNED BY PHYSICIAN. Goal [...] Notes <paragraph>[Visit Date: 2024 by TIFFANIE GONZALEZ RAILROAD SURVEYOR]:</paragraph><paragraph>PATIENT SEEN FOR SKILLED THERAPY DUE TO LUMBAR [...] Date/Time Encounter Type Admission Type Attending Clinicians [facility] Facility Care Department Encounter ID Discharge Date Discharge Status Discharge Condition Discharge Reason Percent Goals Met 2025-05-19 00:00:00 2025-07-17 00:00:00 Outpatient GEOVANNARTMELCHOR BECKMAN [facility] [id number] 30.77
--- OUTSIDE RECORDS SUMMARY | 2025-06-28 20:39 | XMS_ITS | Clinical Summary ---
Author Organization [facility] Address [address] [place] [address] Care Team Providers Care English Drawer Name Role Phone Jose Villela MD Primary Care Provider [phone] Source Comments [facility],non-owned Affiliates and Associated Physician Practices is amultiple site organization consisting of ambulatory clinics and hospital sitesin [place], [place], [place] and [place]. This disclosure is being madepursuant to the Care Everywhere program and may not contain all information available regarding this patient. Last updated 18.[facility] [facility] Allergies No known active allergies Medications * Be aware that medications may not be up to date on this document. Alwaysverify current medications with the patient. omeprazole (PriLOSEC) 20 MG capsule Take 1 (one) capsule by mouth daily before breakfast Active tamsulosin (Flomax) 0.4 MG capsule Take 1 (one) capsule by mouth once daily At the same time every day after a meal. Active atorvastatin (Lipitor) 20 MG tablet Take 1 (one) tablet by mouth at bedtime Active sennosides (Senokot) 8.6 MG tablet Take 1 (one) tablet by mouth at bedtime 04/13/20 25 Active oxyBUTYnin CR 24hr (Ditropan XL) 15 MG tablet Take 1 (one) tablet by mouth once daily 03/13/20 25 Active valsartan-hydroC HLOROthiazide (Diovan HCT) 80-12.5 MG tablet Take 1 (one) tablet by mouth once daily Active oxyCODONE, immediate release, (Roxicodone) 5 MG tabletIndication s:Neurogenic claudication Take 1 (one) tablet by mouth every 4 hours as needed 06/08/20 25 Active acetaminophen (Tylenol) 500 MG tablet Take 2 (two) tablets by mouth every 6 hours Maximum allowable Acetaminophen amount = 4 Grams (4000 mg) / 24 hours. 06/08/20 25 Active docusate sodium (Colace) 100 MG capsule Take 1 (one) capsule by mouth 2 times daily 06/08/20 25 Active polyethylene glycol 3350 (Miralax) 17 g packet Take 17 (seventeen) g by mouth once daily 06/08/20 25 Active cyclobenzaprine (Flexeril) 5 MG tablet Take 1 (one) tablet by mouth 3 times daily as needed for Muscle Spasms 06/08/20 25 Active nortriptyline (Pamelor) 10 MG capsule Take 1 (one) capsule by mouth at bedtime 025 Discontin ued(List Clean-Up) oxyCODONE, immediate release, (Roxicodone) 5 MG tabletIndication s:Postoperative pain after spinal surgery Take 1 (one) tablet by mouth every 4 hours as needed 30 tablet 03/15/20 25 025 Discontin ued(List Clean-Up) acetaminophen (Tylenol) 500 MG tablet Take 2 (two) tablets by mouth 3 times daily Maximum allowable Acetaminophen amount = 4 Grams (4000 mg) / 24 hours. 03/16/20 25 025 Discontin ued(List Clean-Up) meloxicam (Mobic) 15 MG tablet Take 1 (one) tablet by mouth once daily 025 Discontin ued(Clini socorro Decision) Active Problems Problem Noted Date Diagnosed Date Neurogenic claudication 06/05/2025 Cervical myopathy 03/13/2025 Encounters Date Type Department Care Team Description 06/20/2025 1:54 PM CDT - 06/20/2025 11:59 PM CDT Hospital Encounter [facility] DIAGNOSTIC RAD CSM [address] [place] [address] Xu Park MD Discharge Disposition: Home or Self Care 06/20/2025 1:45 PM CDT Office Visit [facility] - Orthopedics [address] [facility] [place] [address] Xu Park MD Lumbar stenosis with neurogenic claudication (Primary Dx); Cervical myelopathy (HCC) 06/20/2025 Travel 06/19/2025 Orders Only [facility] [address] [place] [address], [place] [address] Xu Park MD Lumbar stenosis with neurogenic claudication 06/05/2025 7:27 AM CDT Anesthesia Event [facility] STANISLAW OP [address] [place] [address] Edenilson Negrete MD [place], [place]a A, 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 06/05/2025 7:05 AM CDT - 06/05/2025 11:50 AM CDT Surgery [facility] OP [address] [place] [address] Xu Park MD LUMBAR 2-5 LAMINECTOMIES, LUMBAR 5 BILATERAL FORAMINOTOMIES 06/05/2025 5:50 AM CDT - 06/09/2025 1:31 PM CDT Hospital Encounter [facility] 5S ACUTE [address] [place] [address] Xu Park MD Surgery General Discharge Disposition: Rehab:Inpatient 06/05/2025 Travel 05/24/2025 Orders Only [facility] [address] [place] [address], [facility] [place] [address] Ashely Verdin RN 05/16/2025 10:45 AM CDT - 05/16/2025 11:59 PM CDT Hospital Encounter [facility] LAB OP DRAW STATION [address] [place] [address] Xu Park MD Discharge Disposition: Home or Self Care 05/16/2025 10:16 AM CDT - 05/16/2025 10:44 AM CDT Hospital Encounter [facility] [address] [place] [address] Xu Park MD Discharge Disposition: Home or Self Care 05/16/2025 9:00 AM CDT Office Visit [facility] - [facility]opedics [address] [place] [address], [facility] [place] [address] Xu Park MD Lumbar stenosis with neurogenic claudication (Primary Dx) 05/16/2025 Travel 04/26/2025 Travel 04/26/2025 Orders Only [facility] - Orthopedics [address] [place] [address], [place] [address] Yamileth Aguilar RN Lumbar stenosis with neurogenic claudication 04/25/2025 1:00 PM CDT Office Visit [facility] - Orthopedics [address] [place] [address], [facility] [place] [address] Xu Park MD Cervical myelopathy ([facility]) (Primary Dx); Lumbar stenosis with neurogenic claudication 04/25/2025 12:46 PM CDT - 04/25/2025 11:59 PM CDT Hospital Encounter [facility] DIAGNOSTIC RAD CSM [address] [facility]. [facility] [place] [address] Xu Park MD Discharge Disposition: Home or Self Care 04/25/2025 12:46 PM CDT - 04/25/2025 11:59 PM CDT Hospital Encounter [facility] DIAGNOSTIC RAD CSM [address] [facility]. [facility] [place] [address] Xu Park MD Discharge Disposition: Home or Self Care 04/24/2025 Orders Only [facility] - Orthopedics [address] [place] [address], [place] [address] Xu Park MD Cervical myelopathy ([facility]) ; Degenerative scoliosis 04/03/2025 Refill [facility] - Orthopedics [address] [place] [address], [place] [address] Xu Park MD Refill Request 03/29/2025 Refill [facility] [address] [place] [address], [place] [address] Xu Park MD Refill Request 03/28/2025 1:52 PM CDT - 03/28/2025 11:59 PM CDT Hospital Encounter [facility] DIAGNOSTIC RAD CSM [address] [facility] [place] [address] Xu Park MD Discharge Disposition: Home or Self Care 03/28/2025 1:00 PM CDT Office Visit [facility] - Orthopedics [address] [facility], [place] [address] Xu Park MD Cervical myelopathy (HCC) (Primary Dx); Lumbar stenosis with neurogenic claudication from Last 3 Months Immunizations Immunization Administration Dates Next Due Covid Moderna primary monova lent 12+ yr 0.5mL 11/03/2021,02/16/2021,01/19/2021 Social History Tobacco Use Types Packs/Day Years Used Date Smoking Tobacco: Former Cigarettes 2 007 - 1965 Smokeless Tobacco: Never Tobacco Cessation:Counseling Given: Not Answered Alcohol Use Standard Drinks/Week Comments Not Currently 0 (1 standard drink = 0.6 oz pur e alcohol) AUDIT-C Answer Date Recorded Q1: How often do you have a drink containing alcohol? Never 06/05/2025 Q2: How many drinks containi ng alcohol do you have on a typical day when you are drinking? Patient does not drink Q3: How often do you have si x or more drinks on one occasion? Never 06/05/2025 Overall Financial Resource Strain (CARDIA) Answe r Date Recorded How hard is it for you to pa y for the very basics like food, housing, medical care, and heating? Not hard at all 06/05/2025 [facility] - Occupational Stress Questionnaire Answer Date Recorded Do you feel stress - tense, restless, nervous, or anxious, or unable to sleep at night because your mind is troubled all the time - these days? Not at all 06/05/2025 Hunger Vital Sign Answer Date Recorded Within the past 12 months, y ou worried that your food would run out before you got the money to buy more. Never true 06/05/20 25 Within the past 12 months, t he food you bought just didn't last and you didn't have money to get more. Never true 06/05/2025 PRAPARE - Transportation Answer Date Re corded In the past 12 months, has l ack of transportation kept you from medical appointments or from getting medications? No 05/23 In the past 12 months, has l ack of transportation kept you from meetings, work, or from getting things needed for daily living? No 06/05/2025 Housing Stability Vital Sign Answer Real e Recorded In the last 12 months, was t here a time when you were not able to pay the mortgage or rent on time? No 06/05/2025 In the past 12 months, how m any times have you moved where you were living? 0 06/05/2025 At any time in the past 12 m [facility], were you homeless or living in a mcc (including now)? No 06/05/2025 Sex and Gender Information Value Date Recorded Sex Assigned at Not on file Legal Sex Male 5:21 AM [employer] Gender Identity Not on file Sexual Orientation Not on file Last Filed Vital Signs Vital Sign Reading Time Taken Comments Blood Pressure 144/69 06/09/2025 11:57 AM CDT Pulse 69 06/09/2025 11:57 AM CDT Temperature 36.6 C (97.8 F) 06/09/2025 11:57 AM CDT Respiratory Rate 18 06/09/2025 11:57 AM CDT Oxygen Saturation 96% 06/09/2025 11:57 AM CDT Inhaled Oxygen Concentration - - Weight 81.6 kg (180 lb) 06/20/2025 2:12 PM CDT Height 172.7 cm (5' 8) 06/05/2025 6:06 AM CDT Body Mass Index 27.37 06/05/2025 6:06 AM CDT Plan of Treatment Upcoming Encounters Date Type Department Care Team (Late st Contact Info) Description 07/18/2025 2:00 PM CDT Office Visit [facility] [address] [place] [address], [facility] [place] [address] Xu Park MD [address] [place], [place] [id number] Health Maintenance Due Date Last Done Comments COLOGUARD (AGES 45-75) - COLON CA SCREENING 1953 COLON MONITORING 1953 COLONOSCOPY - COLON CA SCREENING 1953 CT COLONOGRAPHY - COLON CA SCREENING 1953 Colorectal Cancer Screening 1953 FIT - COLON CA SCREENING 1953 FLEX SIG - COLON CA SCREENING 1953 MEDICARE AWV 12 MONTHS 1953 HEPATITIS C SCREENING 04/07/1971 DTAP/TDAP/TD VACCINES (1 - Tdap) 1972 PNEUMOCOCCAL VACCINE 50+ (1 of 1 - PCV) 2003 ZOSTER VACCINE (1 of 2) 2003 AAA SCREENING 2018 COVID-19 VACCINE ( season) 2024 11/03/2021, 10/31/2021, 02/16/2021, Additional history exists DEPRESSION SCREENING 11/23/2024 INFLUENZA VACCINE (#1) 2025 Respiratory Syncytial Virus (RSV) Vaccine Pt: or [...] on patient's age to complete this topic Medical Devices Implanted Type Area Slide Forming Machine Tender Device Identifier Shelf Expiration Date Model / Serial / Lot Screw Set Ti T15 Std Spne Lck Cap Implanted:Qty: 16 on 03/13/2025 by Xu Park MD at [facility] N/A: Posterior Cervical Depuy Spine [id number] / / Depuy 5.5x30 Screw Implanted:Qty: 2 on 03/13/2025 by Xu Park MD at [facility] N/A: Posterior Cervical Depuy Spine [id number] / / Depuy 55 X 28 Mm Screw Implanted:Qty: 2 on 03/13/2025 by Xu Park MD at [facility] N/A: Posterior Cervical Depuy Spine [id number] / / Depuy 3.5 X 14 Screw Implanted:Qty: 8 on 03/13/2025 by Xu Park MD at [facility] N/A: Posterior Cervical Depuy Spine [id number] / / Depuy 3.5 X 24 Screw Implanted:Qty: 4 on 03/13/2025 by Xu Park MD at [facility] N/A: Posterior Cervical Depuy Spine [id number] / / Gft Bone Pliaflix Prm 20cc Implanted:Qty: 1 on 03/13/2025 by Xu Park MD at [facility] N/A: Posterior Cervical Lifenet 01/24/2030-2100-20 / / [id number] BD Depuy Patrick 3.5 Ti 240 Mm Implanted:Qty: 2 on 03/13/2025 by Xu Park MD at [facility] N/A: Posterior Cervical Depuy Spine [id number] / / Procedures Procedure Name Priority Date/Time Associated Diagnosis Comments XR LUMBAR SPINE 2 OR 3VW Routine 06/20/2025 2:01 PM CDT Lumbar stenosis with neurogenic claudication CBC W AUTO DIFFERENTIAL Routine 06/09/2025 4:44 AM CDT BASIC METABOLIC PANEL (CALCIUM TOTAL) Routine 06/09/2025 4:44 AM CDT CBC W AUTO DIFFERENTIAL Routine 06/08/2025 4:11 AM CDT BASIC METABOLIC PANEL (CALCIUM TOTAL) Routine 06/08/2025 4:11 AM CDT CBC W AUTO DIFFERENTIAL Routine 06/07/2025 4:00 AM CDT BASIC METABOLIC PANEL (CALCIUM TOTAL) Routine 06/07/2025 4:00 AM CDT XR LUMBAR SPINE 2 OR 3VW Routine 06/06/2025 2:15 PM CDT Neurogenic claudication CBC W AUTO DIFFERENTIAL Routine 06/06/2025 6:46 AM CDT BASIC METABOLIC PANEL (CALCIUM TOTAL) Routine 06/06/2025 6:46 AM CDT FL LIYA SURGERY Routine 06/05/2025 11:07 AM CDT Cervical myopathy ARTERIAL LINE NOTE Routine 06/05/2025 8: 30 AM CDT PERIPHERAL IV NOTE Routine 06/05/2025 8: 30 AM CDT ENDOTRACHEAL TUBE NOTE Routine 06/05/2025 8:27 AM CDT MO FRANCE FACETECTOMY&FORAMOT 1 VRT SGM EA ADDL SGM 06/05/2025 7:02 AM CDT Spinal stenosis of lumbar region with neurogenic claudication Special Needs PRONE--open magdaleno, C-arm have sling available [facility] 05/30 MO LAMINEC/FACETECT/FO PERRY,LUMBAR 06/05/2025 7:02 AM CDT Spinal stenosis of lumbar region with neurogenic claudication Special Needs PRONE--open magdaleno, C-arm have sling available [facility] 78 TYPE + SCREEN PANEL STAT 06/05/2025 6 :38 AM CDT Pre-op evaluation EKG 12-LEAD Routine 06/05/2025 6:14 AM CDT Pre-op evaluation TYPE + SCREEN PANEL STAT 05/16/2025 1 1:23 AM CDT Pre-op evaluation BASIC METABOLIC PANEL (CALCIUM TOTAL) STAT 05/16/2025 11:23 AM CDT Pre-op evaluation CBC W/O DIFFERENTIAL STAT 05/16/2025 11:23 AM CDT Pre-op evaluation XR SPINE ENTIRE 2 OR 3VW Routine 04/25/2025 1:02 PM CDT Degenerative scoliosis XR CERVICAL SPINE 2 OR 3VW Routine 04/25/2025 1:02 PM CDT Cervical myelopathy (HCC) XR CERVICAL SPINE 2 OR 3VW Routine 03/28/2025 1:58 PM CDT Cervical myelopathy (HCC) from Last 3 Months Results * XR Lumbar Spine 2 or 3Vw (06/20/2025 2:01 PM CDT) Only the most recent of2 resultswithin the time period is included. Anatomical Region Laterality Modality Spine Computed Radiogr aphy 06/20/2025 2:10 PM CDT Impressions 06/20/2025 2:12 PM CDT IMPRESSION: Lumbar laminectomy. > Interpreting Provider: Andrea Alford MD on 06/20/2025 2:12 PM Narrative 06/20/2025 2:12 PM CDT PROCEDURE: XR LUMBAR SPINE 2 OR 3VW DATE/TIME OF EXAM: 06/20/2025 2:01 PM CLINICAL INFORMATION: None relevant/not provided if blank. Indication: M48.062: Lumbar stenosis with neurogenic claudication Additional History: COMPARISON: 11/22/2024. FINDINGS: There is levoscoliosis. The lordosis is normal. Interval laminectomy in the L2-L5 region. There is mild anterior height loss of L1 and superior endplate concavity of L3, unchanged. There is moderate multilevel degenerative change. There is no subluxation. A skin staple line is visible. Procedure Note Andrea Alford MD - 06/20/2025 PROCEDURE: XR LUMBAR SPINE 2 OR 3VW DATE/TIME OF EXAM: 06/20/2025 2:01 PM CLINICAL INFORMATION: None relevant/not provided if blank. Indication: M48.062: Lumbar stenosis with neurogenic claudication Additional History: COMPARISON: 11/22/2024. FINDINGS: There is levoscoliosis. The lordosis is normal. Interval laminectomy inthe L2-L5 region. There is mild anterior height loss of L1 and superior endplate concavity of L3, unchanged. There is moderate multilevel degenerative change. There is no subluxation. A skin staple line is visible. IMPRESSION: Lumbar laminectomy. > Interpreting Provider: Andrea Alford MD on 06/20/2025 2:12 PM us Xu Park MD DIAGNOSTIC IMAGING ORDERABLES Fi nal Result * (ABNORMAL) CBC W AUTO DIFFERENTIAL (06/09/2025 4:44 AM T) Only the most recent of4 resultswithin the time period is included. WBC 7.4 4.0 - 10.7 x10E9/L 06/09/2025 5:26 AM [facility] RBC Count 3.34(L) 4.30 - 5.80 x10E12/L 06/09/2025 5:26 AM [facility] Hemoglobin 9.5(L) 13.3 - 17.5 g/dL 06/09/2025 5:26 AM [facility] Hematocrit 27.8(L) 38.7 - 51.1 % 06/09/2025 5:26 AM [facility] MCV 83.2 80.0 - 98.0 fL 06/09/2025 5:26 AM [facility] MCH 28.4 26.7 - 33.6 pg 06/09/2025 5:26 AM [facility] MCHC 34.2 31.7 - 36.3 g/dL 06/09/2025 5:26 AM [facility] RDW-CV 13.2 11.3 - 14.8 % 06/09/2025 5:26 AM [facility] Platelet Count 186 150 - 420 x10E9/L 06/09/2025 5:26 AM [facility] MPV 10.9 7.8 - 11.4 fL 06/09/2025 5:26 AM [facility] Neutrophil % 61.7 41.0 - 74.0 % 06/09/2025 5:26 AM [facility] Lymphocyte % 23.2 17.0 - 47.0 % 06/09/2025 5:26 AM [facility] Monocyte % 12.3(H) 3.0 - 11.0 % 06/09/2025 5:26 AM [facility] Eosinophil % 1.5 0.0 - 7.0 % 06/09/2025 5:26 AM [facility] Basophil % 0.9 0.0 - 1.6 % 06/09/2025 5:26 AM [facility] Immature Granulocytes % 0.4 0.0 - 1.0 % 06/09/2025 5:26 AM [facility] Neutrophil Absolute 4.54 1.60 - 7.50 x10E9/L 06/09/2025 5:26 AM [facility] Lymphocyte Absolute 1.71 1.00 - 4.40 x10E9/L 06/09/2025 5:26 AM [facility] Monocyte Absolute 0.91 0.15 - 1.00 x10E9/L 06/09/2025 5:26 AM [facility] Eosinophil Absolute 0.11 0.00 - 0.60 x10E9/L 06/09/2025 5:26 AM [facility] Basophil Absolute 0.07 0.00 - 0.13 x10E9/L 06/09/2025 5:26 AM [facility] Blood BLOOD SPECIMEN / Unknown Lab Venipuncture / Unknown 06/09/2025 4:44 AM CDT 06/09/2025 5:17 AM CDT Xu Park MD LAB - HEMATOLOGY ORDERABLES Cat ross Result Performing Organization Address [facility]/State/ZIP Co de Phone Number [address] [address], [facility] [phone] * (ABNORMAL) BASIC METABOLIC PANEL (CALCIUM TOTAL) (06/09/2025 4:44 AM CDT) Only the most recent of5 resultswithin the time period is included. BUN 17 7 - 26 mg/dL 06/09/2025 6:01 AM [facility] Creatinine 1.00 0.71 - 1.16 mg/dL 06/09/2025 6:01 AM [facility] Sodium 133(L) 136 - 145 mmol/L 06/09/2025 6:01 AM [facility] Potassium 4.3 3.5 - 4.5 mmol/L 06/09/2025 6:01 AM [facility] Chloride 103 98 - 107 mmol/L 06/09/2025 6:01 AM [facility] CO2 25 22 - 29 mmol/L 06/09/2025 6:01 AM [facility] Glucose 108(H) 70 - 99 mg/dL 06/09/2025 6:01 AM [facility] Calcium 9.1 8.4 - 10.2 mg/dL 06/09/2025 6:01 AM [facility] Anion Gap 5(L) 6 - 16 06/09/2025 6:01 AM [facility] BUN/Creatinine Ratio 17 7 - 23 06/09/2025 6:01 AM [facility] Osmolality Calculated 278 275 - 295 mOsm/kg 06/09/2025 6:01 AM [facility] eGFR by CKD-EPI 80(L) >=90 mL/min/1.7 3 m2 06/09/2025 6:01 AM [facility] Comment:Estimated Glomerular Filtration Rate (eGFR) calculated using the CKD-EPI Creatinine Equation (2020), per the National Kidney Foundation and [place] [employer]ph[employer] recommendations. Blood BLOOD SPECIMEN / Unknown Lab Venipuncture / Unknown 06/09/2025 4:44 AM CDT 06/09/2025 5:23 AM CDT Xu Park MD LAB - CHEMISTRY ORDERABLES Final Result Performing Organization Address City/[facility]/ZIP Co de Phone Number [facility] [address] [place] [address], [facility] [phone] * [place] Liya Surgery (06/05/2025 11:07 AM CDT) Narrative [facility] RADIOLOGY - 06/05/2025 11:07 AM CDT Fluoroscopy was used for this exam in the OR. Please see the Operative report. us Xu Park MD FLUOROSCOPY ORDERABLES Final Res ult [facility] RADIOLOGY * ARTERIAL LINE PERFORMABLE (06/05/2025 8:30 AM CDT) Reji Bills MD - 06/05/2025 8:30 AM CDT Reji Chew MD 06/05/2025 8:31 AM Arterial Line Placement Procedure Note Patient Location: OR. Procedure: Arterial Line ([id number]) Procedure Section Indications: continuous blood pressure monitoring. Skin Prep: Chloraprep. Orientation: Left. Site: radial. Site Identification: palpation. Sterile Technique: cap and mask. Gauge: 20. Catheter Length: 1 and 3/4 inch. Catheter Type: Arrow. Seldinger Technique Used? Yes Number of Attempts: 1. Line Secured with: Tegaderm. Procedure Tolerance: performed while patient under general anesthesia. Events: none. Patient Sedated? Yes Local Anesthetic Used? No Sedation Types: general anesthesia Staff Section Anesthesia Provider: Reji Chew MD, Performed the procedure us Edenilson Negrete MD GENERAL ANESTHESIA ORDERABLE S Final Result * IV PLACEMENT PERFORMABLE (06/05/2025 8:30 AM CDT) Reji Bills MD - 06/05/2025 8:30 AM CDT Reji Chew MD 06/05/2025 8:30 AM Peripheral IV Line Placement: Patient Location: OR Insertion Time: 06/05/2025 7:48 AM Procedure: IV start ([id number]) Procedure Section: Skin Prep: alcohol. Orientation: left Location: hand Brand Name: carlin. Catheter Gauge: 18 Number of Attempts: 1. Procedure Tolerance: performed while patient under general anesthesia. Staff Section Anesthesia Provider: Reji Chew MD, Performed the procedure us Edenilson Negrete MD GENERAL ANESTHESIA ORDERABLE S Final Result * ETT LINE PERFORMABLE (06/05/2025 8:27 AM CDT) Reji Bills MD - 06/05/2025 8:27 AM CDT Reji Chew MD 06/05/2025 8:28 AM Endotracheal Tube Placement: Patient Location: OR. Intubation Event Date/Time: 06/05/2025 7:41 AM Procedure: intubation ([id number]) Procedure Section: Sedation: under general anesthesia. Indications for Airway Management: anesthesia Induction: standard IV Patient Position: sniffing Mask Ventilation: easy with oral airway. Blade Type: Video Blade Size: 4 Laryngoscopy View: grade 1 (full cords) Intubation Adjuncts: cricoid pressure and stylet Tube: endotracheal tube Placement: oral Tube type: cuff - inflated Tube Size (MM): 8 Depth of Insertion (CM): 24 Measured From: lips Cuff Inflated With: air Number of Attempts: 1. Placement Verified By: direct visualization, bilateral breath sounds, chest auscultation and CO2 monitor Tube secured with: adhesive tape. Dentition unchanged? Yes Difficult Airway? No. Procedure Start Time: 06/05/2025 7:41 AM. Staff Section Anesthesia Provider: Reji Chew MD, Performed the procedure Provider #1: Edenilson Negrete MD. Edenilson Negrete MD GENERAL ANESTHESIA ORDERABLE S Final Result * TYPE + SCREEN PANEL (06/05/2025 6:38 AM CDT) Only the most recent of2 resultswithin the time period is included. [facility] Antibody Screen NEG 7:37 AM CDT [facility] BLOOD BANK LAB ABO Rh B POS 06/05/2025 7:37 AM CDT [facility] BLOOD BANK LAB Blood Bank BLOOD SPECIMEN / Unknown Venipuncture / Unknown 06/05/2025 6:38 AM CDT 06/05/2025 6:47 AM CDT Darcy Negron 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 LAB - BLOOD BANK ORDE RABSON[place] Final Result [facility] BLOOD BANK LAB [address] [place] [address], [facility] [phone] * EKG 12-Lead (06/05/2025 6:14 AM CDT) [facility] Signature Ventricular Rate 71 BPM SL MUSE Atrial Rate 71 BPM [facility] MUSE P-R Interval 168 ms [facility] M[facility] QRS Duration ms 88 ms [facility] MUSE Q-T Interval ms 362 ms [facility] MUSE QTC Calculation (Bezet) 393 ms [facility] MUSE Calculated P [employer] 75 degrees [facility] MUSE Calculated R [employer] 101 degrees SL MUSE Calculated T [employer] 70 degrees SL MUSE Interpretation EKG NORMAL SINUS RHYTHM RIGHTWARD AXIS PULMONARY DISEASE PATTERN ABNORMAL ECG NO PREVIOUS ECGS AVAILABLE Confirmed by BOBBY NOE MD ([id number]) on 06/10/2025 7:23:26 PM [facility] MUSE 06/05/2025 6:14 AM CDT 06/10/2025 7:23 PM CDT Darcy Negron 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 ECG ORDERABLES Edite d Result - Final [facility] NABEEL * (ABNORMAL) CBC W/O DIFFERENTIAL (05/16/2025 11:23 AM CDT) WBC 6.4 4.0 - 10.7 x10E9/L 05/16/2025 11:52 AM [facility] RBC Count 4.34 4.30 - 5.80 x10E12/L 05/16/2025 11:52 AM [facility] Hemoglobin 12.5(L) 13.3 - 17.5 g/dL 05/16/2025 11:52 AM [facility] Hematocrit 36.9(L) 38.7 - 51.1 % 05/16/2025 11:52 AM [facility] MCV 85.0 80.0 - 98.0 fL 05/16/2025 11:52 AM [facility] MCH 28.8 26.7 - 33.6 pg 05/16/2025 11:52 AM [facility] MCHC 33.9 31.7 - 36.3 g/dL 05/16/2025 11:52 AM [facility] RDW-CV 13.1 11.3 - 14.8 % 05/16/2025 11:52 AM [facility] Platelet Count 245 150 - 420 x10E9/L 05/16/2025 11:52 AM [facility] MPV 10.1 7.8 - 11.4 fL 05/16/2025 11:52 AM [facility] Blood BLOOD SPECIMEN / Unknown Lab Venipuncture / Unknown 05/16/2025 11:23 AM CDT 05/16/2025 11:42 AM CDT Darcy Negron 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 LAB - HEMATOLOGY SUSY MALONEY Final Result [facility] [address] [place] [id number], [facility] [phone] * XR Spine Entire 2 or 3Vw (04/25/2025 1:02 PM CDT) Anatomical Region Laterality Modality Spine Computed Radiogr aphy 04/28/2025 8:35 AM CDT Impressions 04/28/2025 12:14 PM CDT IMPRESSION: Thoracolumbar scoliosis with grossly unchanged alignment. Report dictated by Kaleb Cheng MD, (vice president of operations). INitish MD have personally reviewed and interpreted this examination/study. > Interpreting Provider: Nitish Sorenson MD on 04/28/2025 12:14 PM Narrative 04/28/2025 12:14 PM CDT PROCEDURE: XR SPINE ENTIRE 2 OR 3VW, DATE/TIME OF EXAM: 04/25/2025 1:03 PM, LOCATION [facility] INDICATION: M41.50: Degenerative scoliosis ADDITIONAL CLINICAL INFORMATION: Ordering Provider Reason For Exam: scoliosis COMPARISON: Spine x-ray 01/17/2025 FINDINGS: Redemonstration of thoracolumbar scoliosis with dextrocurvature of the thoracic spine measuring approximately 17 degrees from T8 to L2 and levocurvature of the lumbar spine showing approximately 17 degrees from L2 to L5. The posterior instrumented spinal fusion at the levels of C2-T2. Redemonstrated chronic compression deformities of T8, T10, L1, and L3. Moderate multilevel degenerative changes. Redemonstrated atherosclerotic vascular calcifications. Procedure Note Nitish Sorenson MD - 04/28/2025 PROCEDURE: XR SPINE ENTIRE 2 OR 3VW, DATE/TIME OF EXAM: 04/25/2025 1:03PM, LOCATION [facility] INDICATION: M41.50: Degenerative scoliosis ADDITIONAL CLINICAL INFORMATION: Ordering Provider Reason For Exam: scoliosis COMPARISON: Spine x-ray 01/17/2025 FINDINGS: Redemonstration of thoracolumbar scoliosis with dextrocurvature of the thoracic spine measuring approximately 17 degrees from T8 to L2 and levocurvature of the lumbar spine showing approximately 17 degrees fromL2 to L5. The posterior instrumented spinal fusion at the levels of C2-T2. Redemonstrated chronic compression deformities of T8, T10, L1, and L3. Moderate multilevel degenerative changes. Redemonstrated atherosclerotic vascular calcifications. IMPRESSION: Thoracolumbar scoliosis with grossly unchanged alignment. Report dictated by Kaleb Cheng MD, (vice president of operations). Nitish Cates MD have personally reviewed and interpreted this examination/study. > Interpreting Provider: Nitish Sorenson MD on 04/28/2025 12:14 PM us Xu Park MD DIAGNOSTIC IMAGING ORDERABLES Fi nal Result * XR Cervical Spine 2 or 3Vw (04/25/2025 1:02 PM CDT) Only the most recent of2 resultswithin the time period is included. Anatomical Region Laterality Modality Spine Computed Radiogr aphy 04/28/2025 8:16 AM CDT Impressions 04/28/2025 12:12 PM CDT IMPRESSION: Redemonstrated posterior instrumented spinal fusion at the levels of C2-T2 with unchanged alignment from prior. Report dictated by Kaleb Cheng MD, (vice president of operations). Nitish Cates MD have personally reviewed and interpreted this examination/study. > Interpreting Provider: Nitish Sorenson MD on 04/28/2025 12:12 PM Narrative 04/28/2025 12:12 PM CDT PROCEDURE: XR CERVICAL SPINE 2 OR 3VW, DATE/TIME OF EXAM: 04/25/2025 1:02 PM, LOCATION [facility] INDICATION: G95.9: Cervical myelopathy (HCC) ADDITIONAL CLINICAL INFORMATION: Ordering Provider Reason For Exam: s/p cervical fusion COMPARISON: Cervical spine x-ray 03/28/2025 FINDINGS: Redemonstrated posterior instrumented spinal fusion at the levels of C2-T2. The hardware appears intact. Interval removal of surgical skin haroon. Soft tissue swelling has decreased compared to prior. There is mild reversal of the normal cervical lordosis, centered at C6, unchanged from prior. There is ankylosis of C4-C7 vertebral bodies. No acute fracture or compression deformity is identified. Redemonstration of extensive anterior osteophytes at the level of C3-C4. 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 The predental interval and prevertebral soft tissues are normal. The bones are diffusely demineralized. Procedure Note Nitish Sorenson MD - 04/28/2025 PROCEDURE: XR CERVICAL SPINE 2 OR 3VW, DATE/TIME OF EXAM: 51:02 PM, LOCATION [facility] INDICATION: G95.9: Cervical myelopathy (HCC) ADDITIONAL CLINICAL INFORMATION: Ordering Provider Reason For Exam: s/p cervical fusion COMPARISON: Cervical spine x-ray 03/28/2025 FINDINGS: Redemonstrated posterior instrumented spinal fusion at the levels ofC2-T2. The hardware appears intact. Interval removal of surgical skin haroon. Soft tissue swelling has decreased compared to prior. There is mild reversal of the normal cervical lordosis, centered at C6, unchanged from prior. There is ankylosis of C4-C7 vertebral bodies. No acute fracture or compression deformity is identified. Redemonstrationof extensive anterior osteophytes at the level of C3-C4. 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 The predental interval and prevertebral soft tissues are normal. The bones are diffusely demineralized. IMPRESSION: Redemonstrated posterior instrumented spinal fusion at the levels ofC2-T2 with unchanged alignment from prior. Report dictated by Kaleb Cheng MD, (vice president of operations). I, Nitish Sorenson MD have personally reviewed and interpreted this examination/study. > Interpreting Provider: Nitish Sorenson MD on 04/28/2025 12:12 PM Xu Park MD DIAGNOSTIC IMAGING ORDERABLES Fi nal Result from Last 3 Months Insurance * Guarantor: Federico Shirley Account Type Relation to Patient Date of Phone Billing Address Personal/Family Self 1955 [facility] [address] [place] [address] Inmate #[id number] [address] [employer] [place] * Guarantor: Federico Shirley Account Type Relation to Patient Date of Phone Billing Address Personal/Family Self [address] Inmate #[id number] [place] [address] MEDICAID - [place] MEDICARE * Guarantor: [facility] [facility] Account Type Relation to Patient Date of Phone Billing Address INSTITUTIONAL [facility] [address] * Guarantor: [place] Account Type Relation to Patient Date of Phone Billing Address [facility] [place] [address] * Guarantor: [facility] [facility] Account Type Relation to Patient Date of Phone Billing Address [facility] [address] * Guarantor: [place] Account Type Relation to Patient Date of Phone Billing Address [facility] [place] [address] * Guarantor: [facility] [facility] Account Type Relation to Patient Date of Phone Billing Address [facility] [place] [address] * Guarantor: [facility] [facility] Account Type Relation to Patient Date of Phone Billing Address [facility] [place] [address] * Guarantor: [place] Account Type Relation to Patient Date of Phone Billing Address [facility] [place] [address] Advance Directives * Full Code (Latest Code Status on File) Date Activated Date Inactivated Comments 06/05/2025 11:12 AM 06/09/2025 2:31 PM * Full Code Date Activated Date Inactivated Comments 06/05/2025 11:12 AM 06/05/2025 11:12 AM * Full Code Date Activated Date Inactivated Comments 03/13/2025 1:55 PM 03/16/2025 5:31 PM Care Teams English Drawer Relationship Specialty Start Date End Date Jose Villela MD [address] [facility] [place] [address] PCP - General Internal Medicine 06/01/25
--- NOTE | 2025-06-28 20:51 | ECG_ITS ---
Test Date: 2025-06-28 21:23:16 Measurements Intervals [place] Rate: 62 P: 44 NE: 203 QRS: 93 QRSD: 95 T: 51 QT: 385 QTc: 392 Interpretive Statements SINUS RHYTHM RIGHT AXIS DEVIATION INCOMPLETE RIGHT BUNDLE BRANCH BLOCK DELAYED PRECORDIAL R/S TRANSITION BASELINE ARTIFACT- I, III, AVR, AVL, AVF BORDERLINE ECG No previous ECG available for comparison Electronically Signed On 06-29-2025 06:15:02 CDT by Jose Luis Maddox D.O.
[2025-06-28 21:15] LABS: Hematocrit 29.6 % (42.0-52.0); Hemoglobin 9.8 g/dL (14.0-18.0); Immature Granulocyte Percent A 0.7 % (0-0.5); Lymphocytes Absolute Auto 1.27 K/mm3 (0.9-3.2); Mean Corpuscular HGB Conc 33.1 g/dl (32-36); Mean Corpuscular Hemoglobin 28.3 pg (26-34); Mean Corpuscular Volume 85.5 fl (80-100); Nucleated Red Blood Cells Absolute Auto 0.000 K/mm3 (0.0-0.012); Nucleated Red Blood Cells Perc 0.0 % (0.0-0.2); Platelet Count Result 258 k/mm3 (150-375); Red Blood Count 3.46 M/mm3 (4.6-6.20); White Blood Count 15.0 K/mm3 (4.5-10.0)
[2025-06-28 21:25] LABS: Alanine Aminotransferase 14 U/L (6-50); Albumin Level 4.0 g/dL (3.5-5.1); Alkaline Phosphatase 72 U/L (38-126); Anion Gap 10 mmol/L (4-12); Aspartate Amino Transferase 22 U/L (17-59); Bilirubin,Total 0.2 mg/dL (0.2-1.3); Blood Urea Nitrogen 21 mg/dL (9-20); Calcium 9.1 mg/dL (8.4-10.2); Carbon Dioxide 23 mmol/L (22-30); Chloride 98 mmol/L (98-107); Estimated Glomerular Filt Rate 51; Glucose 130 mg/dL (65-110); Potassium 4.2 mmol/L (3.4-5.0); Sodium 131 mmol/L (137-145); Total Protein 6.7 g/dL (6.3-8.2)
--- NOTE | 2025-06-28 21:30 | ED.SYNCOPE ---
HPI - Syncope General Chief Complaint: Syncope <Janeth Bowman APRN - Last Filed: 06/29/25 02:00> Stated Complaint: SYNCOPAL EPISODE; +LOC, HYPOTENSIVE <Janeth Bowman APRN - Last Filed: 06/29/25 02:00> History of Present Illness HPI narrative: Patient is a 70 year male who presents to the ER after sustaining a syncopal event. He reports he was working outside his back ER for approximately 30 minutes when he felt lightheaded. Patient reports he regained consciousness on the ground. It is unclear how long patient lost consciousness, as this was an unwitnessed fall. Patient reports this happened to him ?years ago after a change in his blood pressure medication. He endorses a history of a heart murmur, neck surgery, recent back surgery, hypertension, hyperlipidemia, and an overactive bladder. Patient reports he has been drinking water regularly throughout the day. He denies any pain at the time of examination. Patient reports his back surgery was approximately 3 weeks ago. He denies any saddle anesthesia, loss of continence, abdominal pain, shortness of breath, chest pain, or recent fevers. <Janeth Bowman APRN - Last Filed: 06/29/25 02:00> Related Data Home Medications: Home Medications ?Medication ?Instructions ?Recorded ?Confirmed ?Last Taken ?Type acetaminophen 500 mg capsule 1,000 mg PO Q6H PRN fever or pain 06/09/25 06/29/25 06/09/25 09:00 History polyethylene glycol 3350 17 17 g PO DAILY PRN constipation 06/09/25 06/29/25 06/09/25 09:00 History gram/dose oral powder sennosides 8.6 mg tablet 8.6 mg PO HS 06/09/25 06/29/25 06/08/25 21:00 History solifenacin 5 mg tablet (Vesicare) 5 mg PO DAILY 06/29/25 06/29/25 Unknown History <Janeth Bowman APRN - Last Filed: 06/29/25 02:00> Allergies/Adverse Reactions: Allergies Allergy/AdvReac Type Severity Reaction Status Date / Time No Known Allergies Allergy Verified 06/09/25 14:34 <Janeth Bowman APRN - Last Filed: 06/29/25 02:00> Review of Systems Review of Systems: All systems reviewed & are unremarkable except as noted in HPI and below <Janeth Bowman APRN - Last Filed: 06/29/25 02:00> [facility] Past Medical History Medical History: Medical History Debility Gait abnormality Post-op pain Lumbar stenosis with neurogenic claudication Skin wound from surgical incision Cervical myopathy <Janeth Bowman APRN - Last Filed: 06/29/25 02:00> Social History Social History: Social History Smoking status: Former smoker Tobacco type: cigarettes Second hand tobacco smoke exposure: No Alcohol intake: never Substance use: never Substance use type: marijuana Do You Feel Safe in your Home?: Yes Lack of Transportation: No Lack of Food: Never True Current Housing: I Have Housing Concerned About Future Housing: No Difficulty Paying Gas/Electric Bills: No Difficulty Paying for Meds: No Currently Unemployed: No Education: High School Diploma/GED Difficulty w/ Childcare or Family Care: No Spiritual care concerns: No <Janeht Bowman APRN - Last Filed: 06/29/25 02:00> Exam Narrative: GENERAL: Well appearing, well-nourished, non-toxic, in no acute distress. HEAD: Normocephalic, atraumatic. NECK: Supple. No adenopathy, no masses. RESPIRATORY: Airway patent, respirations nonlabored. Clear to auscultation bilaterally, no rales, rhonchi, wheezing. CARDIOVASCULAR: Regular rate and rhythm with murmur, rubs, or gallops. Peripheral pulses 2+ and equal bilaterally. ABDOMINAL: Soft, nontender, nondistended, no hepatosplenomegaly. Normoactive BS. MUSCULOSKELETAL: Moves all extremities. Strength/ROM intact without gross deformities. SKIN: Warm, dry, pallor. No rashes. NEURO: A&O X3. Speech clear. Cranial nerves II-XII intact. No ataxic movements. PSYCHIATRIC: Appropriate mood and affect. Normal interaction. <Janeth Bowman APRN - Last Filed: 06/29/25 02:00> Course ACTIVITIES COORDINATOR/PA Physician Supervision Patient admitted. I was available for consultation while patient was in the ED but did not personally examine them/was not directly involved in their care <Meggan Lundy MD - Last Filed: 07/02/25 19:25> Vital Signs Vital signs: Vital Signs Pulse Rate 63 06/28/25 20:22 Respiratory Rate 13 06/28/25 20:22 Blood Pressure 101/57 L 06/28/25 20:22 Pulse Oximetry 96 06/28/25 20:22 Oxygen Delivery Room Air 06/28/25 20:22 Temperature 98 F 06/30/25 14:00 Pulse Rate 68 06/30/25 14:00 Respiratory Rate 18 06/30/25 14:00 Blood Pressure 145/79 H 06/30/25 14:00 Pulse Oximetry 98 06/30/25 14:00 Oxygen Delivery Room Air 06/30/25 09:34 <Janeth Bowman APRN - Last Filed: 06/29/25 02:00> Vital Signs Pulse Rate 63 06/28/25 20:22 Respiratory Rate 13 06/28/25 20:22 Blood Pressure 101/57 L 06/28/25 20:22 Pulse Oximetry 96 06/28/25 20:22 Oxygen Delivery Room Air 06/28/25 20:22 Temperature 98 F 06/30/25 14:00 Pulse Rate 68 06/30/25 14:00 Respiratory Rate 18 06/30/25 14:00 Blood Pressure 145/79 H 06/30/25 14:00 Pulse Oximetry 98 06/30/25 14:00 Oxygen Delivery Room Air 06/30/25 09:34 <Meggan Lundy MD - Last Filed: 07/02/25 19:25> MDM - Syncope MDM Narrative Medical decision making narrative: Patient is a 70 year male who presents to the ER after sustaining a syncopal event. He reports he was working outside his back ER for approximately 30 minutes when he felt lightheaded. Patient reports he regained consciousness on the ground. It is unclear how long patient lost consciousness, as this was an unwitnessed fall. Patient reports this happened to him ?years ago after a change in his blood pressure medication. He endorses a history of a heart murmur, neck surgery, recent back surgery, hypertension, hyperlipidemia, and an overactive bladder. Patient reports he has been drinking water regularly throughout the day. He denies any pain at the time of examination. Patient reports his back surgery was approximately 3 weeks ago. He denies any saddle anesthesia, loss of continence, abdominal pain, shortness of breath, chest pain, or recent fevers. Labs Ordered: CBC, CMP, troponin, proBNP, TSH, magnesium, coags, ethyl alcohol, COVID/flu/RSV swab Imaging Ordered: CT head, CT cervical spine, CT lumbar spine (d/t pt's recent back surgery), CTA (d/t pt's syncopal episode and elevated d. dimer) Medications Ordered: 1 L normal saline IV bolus Results: Pt's orthostatic BP readings were positive (laying BP 170s, standing BP 140s) Diagnosis: Syncopal episode, mild SUSANA, dehydration Consults: 2424- Called [facility] for neurosurgery consult. 0100- Spoke with neurosurgery at [facility], Dr. Rice. He reports pt can follow up with them in a week. 0110- Spoke with hospitalist, Monroe Watt NP, who was in agreement with plan to admit pt for further cardiac work-up. He will be admitted to the med/surg unit with telemetry. Results of imaging and lab work shared with patient and his family. It was advised patient be admitted to the hospital for further evaluation and treatment. Patient and his family verbalized understanding and are in agreement with plan. <Janeth Bowman APRN - Last Filed: 06/29/25 02:00> Differential Diagnosis Differential diagnosis: Likely syncope due to orthostatic hypotension, vasovagal syncope, subarachnoid hemorrhage, pulmonary embolism and dehydration <Janeth Bowman APRN - Last Filed: 06/29/25 02:00> Lab Data Attestation: I reviewed the patient's lab results. <Janeth Bowman APRN - Last Filed: 06/29/25 02:00> Result diagrams: 06/30/25 06:23 06/30/25 06:23 <Janeth Bowman APRN - Last Filed: 06/29/25 02:00> Labs: Lab Results 06/28/25 06/28/25 06/28/25 Range/Units 21:05 22:08 23:26 WBC 15.0 H (4.5-10.0) K/mm3 RBC 3.46 L (4.6-6.20) M/mm3 Hgb 9.8 L (14.0-18.0) g/dL Hct 29.6 L (42.0-52.0) % MCV 85.5 (80-100) fl MCH 28.3 (26-34) pg MCHC 33.1 (32-36) g/dl RDW 13.3 (11.5-14.5) % Plt Count 258 (150-375) k/mm3 MPV 9.6 (7.4-10.4) fl Immature Gran % (Auto) 0.7 H (0-0.5) % Neut % (Auto) 84.1 H (45.5-73.1) % Lymph % (Auto) 8.5 L (18.3-44.2) % [place] % (Auto) 5.9 (2.6-8.5) % Eos % (Auto) 0.4 (0-4.4) % Baso % (Auto) 0.4 (0.2-1.2) % Lymph # (Auto) 1.27 (0.9-3.2) K/mm3 [place] # (Auto) 0.9 H (0.1-0.6) K/mm3 Eos # (Auto) 0.1 (0-0.3) K/mm3 Baso # (Auto) 0.1 (0.0-0.1) K/mm3 Abs Immat Gran (auto) 0.11 H (0.00-0.031) K/mm3 Absolute Neuts (auto) 12.6 H (1.3-6.7) K/mm3 Absolute Nucleated RBC 0.000 (0.0-0.012) K/mm3 Nucleated RBC % 0.0 (0.0-0.2) % PT 14.4 (11.1-14.7) Seconds INR 1.1 APTT 33.3 (22.3-36.8) Seconds D-Dimer 1.18 H (<0.48) ug/mL Sodium 131 L (137-145) mmol/L Potassium 4.2 (3.4-5.0) mmol/L Chloride 98 (98-107) mmol/L Carbon Dioxide 23 (22-30) mmol/L Anion Gap 10 (4-12) mmol/L BUN 21 H (9-20) mg/dL Creatinine 1.38 H (0.7-1.3) mg/dL Estim Creat Clear Calc Not Reportable Estimated GFR 51 L (59 - ) Glucose 130 H (65-110) mg/dL Calcium 9.1 (8.4-10.2) mg/dL Magnesium 1.7 (1.6-2.3) mg/dL Total Bilirubin 0.2 (0.2-1.3) mg/dL AST 22 (17-59) U/L ALT 14 (6-50) U/L Alkaline Phosphatase 72 (38-126) U/L Troponin I < 0.012 (0.000-0.034) ng/mL NT-Pro-B Natriuret Pep 96 (19.9-100) pg/mL Total Protein 6.7 (6.3-8.2) g/dL Albumin 4.0 (3.5-5.1) g/dL TSH (Reflex) 1.680 (0.465-4.68) uIU/mL Urine Color Yellow (Yellow) Urine Appearance Clear (Clear) Urine pH 6.5 (5.0-9.0) Ur Specific [place] 1.022 (1.001-1.035) Urine Protein Negative (Negative) mg/dL Urine Glucose (UA) Negative (Negative) mg/dL Urine Ketones Negative (Negative) mg/dL Ur Blood (Man) Negative (Negative) Urine Nitrate Negative (Negative) Urine Bilirubin Negative (Negative) Urine Urobilinogen 0.2 (<2.0) mg/dL Leukocyte Esterase Rfl Negative (Negative) MYNOR/UL Ethyl Alcohol < 10 (<10) mg/dL Influenza A (RT-PCR) Negative (Negative) Influenza B (RT-PCR) Negative (Negative) RSV (RT-PCR) Negative (Negative) SARS-CoV-2 RNA (RT-PCR) Negative (Negative) 06/29/25 06/30/25 Range/Units 05:43 06:23 WBC 8.9 6.6 (4.5-10.0) K/mm3 RBC 3.67 L 3.74 L (4.6-6.20) M/mm3 Hgb 10.3 L 10.6 L (14.0-18.0) g/dL Hct 31.5 L 32.2 L (42.0-52.0) % MCV 85.8 86.1 (80-100) fl MCH 28.1 28.3 (26-34) pg MCHC 32.7 32.9 (32-36) g/dl RDW 13.3 13.3 (11.5-14.5) % Plt Count 280 273 (150-375) k/mm3 MPV 10.0 10.0 (7.4-10.4) fl Immature Gran % (Auto) 0.6 H 0.3 (0-0.5) % Neut % (Auto) 67.9 60.3 (45.5-73.1) % Lymph % (Auto) 21.8 26.9 (18.3-44.2) % [place] % (Auto) 7.9 9.7 H (2.6-8.5) % Eos % (Auto) 1.0 2.0 (0-4.4) % Baso % (Auto) 0.8 0.8 (0.2-1.2) % Lymph # (Auto) 1.95 1.77 (0.9-3.2) K/mm3 [place] # (Auto) 0.7 H 0.6 (0.1-0.6) K/mm3 Eos # (Auto) 0.1 0.1 (0-0.3) K/mm3 Baso # (Auto) 0.1 0.1 (0.0-0.1) K/mm3 Abs Immat Gran (auto) 0.05 H 0.02 (0.00-0.031) K/mm3 Absolute Neuts (auto) 6.1 4.0 (1.3-6.7) K/mm3 Absolute Nucleated RBC 0.000 0.000 (0.0-0.012) K/mm3 Nucleated RBC % 0.0 0.0 (0.0-0.2) % PT (11.1-14.7) Seconds INR APTT (22.3-36.8) Seconds D-Dimer (<0.48) ug/mL Sodium 129 L 133 L (137-145) mmol/L Potassium 3.9 4.0 (3.4-5.0) mmol/L Chloride 96 L 100 (98-107) mmol/L Carbon Dioxide 26 25 (22-30) mmol/L Anion Gap 7 8 (4-12) mmol/L BUN 20 12 D (9-20) mg/dL Creatinine 1.16 0.95 (0.7-1.3) mg/dL Estim Creat Clear Calc 50 60 Estimated GFR > 60 > 60 (59 - ) Glucose 113 H 102 (65-110) mg/dL Calcium 9.6 9.4 (8.4-10.2) mg/dL Magnesium 1.8 1.7 (1.6-2.3) mg/dL Total Bilirubin 0.4 0.4 (0.2-1.3) mg/dL AST 24 25 (17-59) U/L ALT 15 13 (6-50) U/L Alkaline Phosphatase 78 78 (38-126) U/L Troponin I < 0.012 (0.000-0.034) ng/mL NT-Pro-B Natriuret Pep (19.9-100) pg/mL Total Protein 7.0 7.2 (6.3-8.2) g/dL Albumin 4.2 4.2 (3.5-5.1) g/dL TSH (Reflex) (0.465-4.68) uIU/mL Urine Color (Yellow) Urine Appearance (Clear) Urine pH (5.0-9.0) Ur Specific [place] (1.001-1.035) Urine Protein (Negative) mg/dL Urine Glucose (UA) (Negative) mg/dL Urine Ketones (Negative) mg/dL Ur Blood (Man) (Negative) Urine Nitrate (Negative) Urine Bilirubin (Negative) Urine Urobilinogen (<2.0) mg/dL Leukocyte Esterase Rfl (Negative) MYNOR/UL Ethyl Alcohol (<10) mg/dL Influenza A (RT-PCR) (Negative) Influenza B (RT-PCR) (Negative) RSV (RT-PCR) (Negative) SARS-CoV-2 RNA (RT-PCR) (Negative) <Janeth Bowman, T[employer] AND DIE MAKER TECHNICIAN - Last Filed: 06/29/25 02:00> Lab Results 06/28/25 06/28/25 06/28/25 Range/Units 21:05 22:08 23:26 WBC 15.0 H (4.5-10.0) K/mm3 RBC 3.46 L (4.6-6.20) M/mm3 Hgb 9.8 L (14.0-18.0) g/dL Hct 29.6 L (42.0-52.0) % MCV 85.5 (80-100) fl MCH 28.3 (26-34) pg MCHC 33.1 (32-36) g/dl RDW 13.3 (11.5-14.5) % Plt Count 258 (150-375) k/mm3 MPV 9.6 (7.4-10.4) fl Immature Gran % (Auto) 0.7 H (0-0.5) % Neut % (Auto) 84.1 H (45.5-73.1) % Lymph % (Auto) 8.5 L (18.3-44.2) % [place] % (Auto) 5.9 (2.6-8.5) % Eos % (Auto) 0.4 (0-4.4) % Baso % (Auto) 0.4 (0.2-1.2) % Lymph # (Auto) 1.27 (0.9-3.2) K/mm3 [place] # (Auto) 0.9 H (0.1-0.6) K/mm3 Eos # (Auto) 0.1 (0-0.3) K/mm3 Baso # (Auto) 0.1 (0.0-0.1) K/mm3 Abs Immat Gran (auto) 0.11 H (0.00-0.031) K/mm3 Absolute Neuts (auto) 12.6 H (1.3-6.7) K/mm3 Absolute Nucleated RBC 0.000 (0.0-0.012) K/mm3 Nucleated RBC % 0.0 (0.0-0.2) % PT 14.4 (11.1-14.7) Seconds INR 1.1 APTT 33.3 (22.3-36.8) Seconds D-Dimer 1.18 H (<0.48) ug/mL Sodium 131 L (137-145) mmol/L Potassium 4.2 (3.4-5.0) mmol/L Chloride 98 (98-107) mmol/L Carbon Dioxide 23 (22-30) mmol/L Anion Gap 10 (4-12) mmol/L BUN 21 H (9-20) mg/dL Creatinine 1.38 H (0.7-1.3) mg/dL Estim Creat Clear Calc Not Reportable Estimated GFR 51 L (59 - ) Glucose 130 H (65-110) mg/dL Calcium 9.1 (8.4-10.2) mg/dL Magnesium 1.7 (1.6-2.3) mg/dL Total Bilirubin 0.2 (0.2-1.3) mg/dL AST 22 (17-59) U/L ALT 14 (6-50) U/L Alkaline Phosphatase 72 (38-126) U/L Troponin I < 0.012 (0.000-0.034) ng/mL NT-Pro-B Natriuret Pep 96 (19.9-100) pg/mL Total Protein 6.7 (6.3-8.2) g/dL Albumin 4.0 (3.5-5.1) g/dL TSH (Reflex) 1.680 (0.465-4.68) uIU/mL Urine Color Yellow (Yellow) Urine Appearance Clear (Clear) Urine pH 6.5 (5.0-9.0) Ur Specific [place] 1.022 (1.001-1.035) Urine Protein Negative (Negative) mg/dL Urine Glucose (UA) Negative (Negative) mg/dL Urine Ketones Negative (Negative) mg/dL Ur Blood (Man) Negative (Negative) Urine Nitrate Negative (Negative) Urine Bilirubin Negative (Negative) Urine Urobilinogen 0.2 (<2.0) mg/dL Leukocyte Esterase Rfl Negative (Negative) MYNOR/UL Ethyl Alcohol < 10 (<10) mg/dL Influenza A (RT-PCR) Negative (Negative) Influenza B (RT-PCR) Negative (Negative) RSV (RT-PCR) Negative (Negative) SARS-CoV-2 RNA (RT-PCR) Negative (Negative) 06/29/25 06/30/25 Range/Units 05:43 06:23 WBC 8.9 6.6 (4.5-10.0) K/mm3 RBC 3.67 L 3.74 L (4.6-6.20) M/mm3 Hgb 10.3 L 10.6 L (14.0-18.0) g/dL Hct 31.5 L 32.2 L (42.0-52.0) % MCV 85.8 86.1 (80-100) fl MCH 28.1 28.3 (26-34) pg MCHC 32.7 32.9 (32-36) g/dl RDW 13.3 13.3 (11.5-14.5) % Plt Count 280 273 (150-375) k/mm3 MPV 10.0 10.0 (7.4-10.4) fl Immature Gran % (Auto) 0.6 H 0.3 (0-0.5) % Neut % (Auto) 67.9 60.3 (45.5-73.1) % Lymph % (Auto) 21.8 26.9 (18.3-44.2) % [place] % (Auto) 7.9 9.7 H (2.6-8.5) % Eos % (Auto) 1.0 2.0 (0-4.4) % Baso % (Auto) 0.8 0.8 (0.2-1.2) % Lymph # (Auto) 1.95 1.77 (0.9-3.2) K/mm3 [place] # (Auto) 0.7 H 0.6 (0.1-0.6) K/mm3 Eos # (Auto) 0.1 0.1 (0-0.3) K/mm3 Baso # (Auto) 0.1 0.1 (0.0-0.1) K/mm3 Abs Immat Gran (auto) 0.05 H 0.02 (0.00-0.031) K/mm3 Absolute Neuts (auto) 6.1 4.0 (1.3-6.7) K/mm3 Absolute Nucleated RBC 0.000 0.000 (0.0-0.012) K/mm3 Nucleated RBC % 0.0 0.0 (0.0-0.2) % PT (11.1-14.7) Seconds INR APTT (22.3-36.8) Seconds D-Dimer (<0.48) ug/mL Sodium 129 L 133 L (137-145) mmol/L Potassium 3.9 4.0 (3.4-5.0) mmol/L Chloride 96 L 100 (98-107) mmol/L Carbon Dioxide 26 25 (22-30) mmol/L Anion Gap 7 8 (4-12) mmol/L BUN 20 12 D (9-20) mg/dL Creatinine 1.16 0.95 (0.7-1.3) mg/dL Estim Creat Clear Calc 50 60 Estimated GFR > 60 > 60 (59 - ) Glucose 113 H 102 (65-110) mg/dL Calcium 9.6 9.4 (8.4-10.2) mg/dL Magnesium 1.8 1.7 (1.6-2.3) mg/dL Total Bilirubin 0.4 0.4 (0.2-1.3) mg/dL AST 24 25 (17-59) U/L ALT 15 13 (6-50) U/L Alkaline Phosphatase 78 78 (38-126) U/L Troponin I < 0.012 (0.000-0.034) ng/mL NT-Pro-B Natriuret Pep (19.9-100) pg/mL Total Protein 7.0 7.2 (6.3-8.2) g/dL Albumin 4.2 4.2 (3.5-5.1) g/dL TSH (Reflex) (0.465-4.68) uIU/mL Urine Color (Yellow) Urine Appearance (Clear) Urine pH (5.0-9.0) Ur Specific [place] (1.001-1.035) Urine Protein (Negative) mg/dL Urine Glucose (UA) (Negative) mg/dL Urine Ketones (Negative) mg/dL Ur Blood (Man) (Negative) Urine Nitrate (Negative) Urine Bilirubin (Negative) Urine Urobilinogen (<2.0) mg/dL Leukocyte Esterase Rfl (Negative) MYNOR/UL Ethyl Alcohol (<10) mg/dL Influenza A (RT-PCR) (Negative) Influenza B (RT-PCR) (Negative) RSV (RT-PCR) (Negative) SARS-CoV-2 RNA (RT-PCR) (Negative) <Meggan Lundy MD - Last Filed: 07/02/25 19:25> Imaging Data Attestation: I personally reviewed and interpreted this imaging study as follows: <Janeth Bowman APRN - Last Filed: 06/29/25 02:00> Radiologist's impression: Impressions Head CT 06/28/25 21:57 Impression: No acute intracranial hemorrhage or suspicious mass effect. Cervical Spine CT 06/28/25 22:39 Impression: Significant degenerative disease, without acute fracture. Chest X-Ray 06/28/25 22:39 IMPRESSION: No focal infiltrate or effusion. Lumbar Spine CT 06/28/25 22:43 Impression: Compression of the superior endplate of L1 is identified for which an acute fracture is suspected and for which clinical correlation is needed regarding point tenderness. Degenerative disease is also noted, as detailed above. Chest CTA 06/28/25 22:58 IMPRESSION: No pulmonary embolus. No thoracic aortic dissection. Bibasilar atelectasis. <Janeth Bowman, T[employer] AND D[employer] MAKER TECHNICIAN - Last Filed: 06/29/25 02:00> Discharge Plan Discharge Clinical Impression: Syncope and collapse, Dehydration, SUSANA (acute kidney injury) <Janeth Bowman APRN - Last Filed: 06/29/25 02:00> Patient Disposition: Still a Patient <Janeth Bowman APRN - Last Filed: 06/29/25 02:00> Condition: Stable <Janeth Bowman APRN - Last Filed: 06/29/25 02:00>
[2025-06-28 21:49] LABS: Magnesium 1.7 mg/dL (1.6-2.3)
[2025-06-28 21:58] LABS: INR 1.1; Prothrombin Time 14.4 Seconds (11.1-14.7)
[2025-06-28 21:59] LABS: Partial Thromboplastin Time 33.3 Seconds (22.3-36.8)
[2025-06-28 22:01] LABS: NT Pro B Type Natriuretic Pept 96 pg/mL (19.9-100); Troponin I < 0.012 ng/mL (0.000-0.034)
[2025-06-28 22:21] LABS: Thyroid Stimulating Hormone Reflex 1.680 uIU/mL (0.465-4.68)
[2025-06-28 22:50] LABS: Influenza A QL RT-PCR Negative (Negative); Influenza B QL RT-PCR Negative (Negative); RSV RNA, RT-PCR Negative (Negative); SARS-CoV-2 RNA PCR Negative (Negative)
[2025-06-28 22:51] VITALS: BP 129/64; PULSE 74; RESP 13; O2SAT 97
[2025-06-28 23:12] VITALS: BP 139/63; PULSE 70; RESP 12; O2SAT 100
[2025-06-28 23:36] LABS: Add Urine Microscopic? NO; Appearance Urine Clear (Clear); Glucose Urine UA Negative (Negative); Leukocyte Esterase Ur Negative LEU/UL (Negative); Nitrate Urine Negative (Negative); Specific Grav Ur 1.022 (1.001-1.035)
[2025-06-28 23:41] VITALS: BP 139/61; PULSE 72; RESP 10; O2SAT 99
[2025-06-29] VITALS (25 sets, daily range): BP systolic 135–179; BP diastolic 55–75; PULSE 66–103; RESP 9–24; TEMP 36.1–36.7; O2SAT 95–99; BMI 27.0
--- NOTE | 2025-06-29 01:17 | P.HP_ITS ---
H&P: HPI History of Present Illness Date/Time: 06/29/25 01:17 Chief Complaint: Syncope Narrative: This is a 70-year-old male patient admitted to the hospital due to syncope. 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 A similar syncopal episode occurred several years ago after starting duloxetine (Cymbalta) that interacted with his blood-pressure regimen and caused hypotension. Current medications include: ? Valsartan/hydrochlorothiazide (combination) ? Amlodipine ? Recently switched from oxybutynin to solifenacin for overactive bladder. The patient had previously expressed concern about the contradictory nature of taking oxybutynin to prevent urination while also taking hydrochlorothiazide, a diuretic, which he felt was counterproductive. ? Acetaminophen as needed (previously took frequent ibuprofen but now limits use) Recent events/relevant history: ? EMS noted severe dehydration at presentation. ? Patient reports a history of 34 years of incarceration, released last September, during which medication management was inconsistent, with different doctors changing prescriptions, including ibuprofen which was noted to affect kidney numbers. ? Patient's blood pressure typically runs a little high even on current medications, but not severely. ? Lumbar spine surgery a few weeks ago; doing well with physical therapy but still uses a walker for balance. CT shows a possible new vertebral fracture slightly above prior surgery, though patient is asymptomatic. ? Heart murmur previously noted by a pre-op nurse practitioner and his primary care physician Dr. Villela who stated it was not much to worry about. Associated/pertinent negatives today: denies chest pain, shortness of breath, nausea, vomiting, constipation, or diarrhea. Risk factors for syncope: diuretic (HCTZ), dehydration, multiple antihypertensives, possible structural heart disease (murmur), and possible arrhythmia. Review of Systems Review of Systems: All systems reviewed & are unremarkable except as noted in HPI and below PMFSH Past Medical History Medical History Debility Gait abnormality Post-op pain Lumbar stenosis with neurogenic claudication Skin wound from surgical incision Cervical myopathy Social History Social History Smoking status: Former smoker Tobacco type: cigarettes Second hand tobacco smoke exposure: No Alcohol intake: never Substance use: never Substance use type: marijuana Do You Feel Safe in your Home?: Yes Lack of Transportation: No Lack of Food: Never True Current Housing: I Have Housing Concerned About Future Housing: No Difficulty Paying Gas/Electric Bills: No Difficulty Paying for Meds: No Currently Unemployed: No Education: High School Diploma/GED Difficulty w/ Childcare or Family Care: No Spiritual care concerns: No Meds Home Medications and Allergies Home Medications ?Medication ?Instructions ?Recorded ?Confirmed ?Type acetaminophen 500 mg capsule 1,000 mg PO Q6H 06/09/25 06/09/25 History docusate sodium 100 mg capsule 100 mg PO BID 06/09/25 06/09/25 History polyethylene glycol 3350 17 17 g PO DAILY 06/09/25 06/09/25 History gram/dose oral powder sennosides 8.6 mg tablet 8.6 mg PO HS 06/09/25 06/09/25 History amlodipine 5 mg tablet (Norvasc) 5 mg PO QAM #30 tabs 06/15/25 Rx atorvastatin 20 mg tablet (Lipitor) 20 mg PO HS #30 tabs 06/15/25 Rx cyclobenzaprine 5 mg tablet 5 mg PO TID PRN muscle spasm #90 06/15/25 Rx tabs omeprazole 20 mg capsule,delayed 20 mg PO DAILY #30 caps 06/15/25 Rx release oxybutynin chloride 15 mg 15 mg PO DAILY #30 tabs 06/15/25 Rx tablet,extended release 24 hr tamsulosin 0.4 mg capsule 0.4 mg PO DAILY #30 caps 06/15/25 Rx valsartan 80 1 tablet PO DAILY #30 tabs 06/15/25 Rx mg-hydrochlorothiazide 12.5 mg tablet oxycodone 5 mg capsule 5 mg PO Q8H PRN pain #20 caps 06/16/25 Rx oxycodone 5 mg tablet 5 mg PO Q8H PRN pain #20 tabs 06/16/25 06/09/25 Rx Allergies Allergy/AdvReac Type Severity Reaction Status Date / Time No Known Allergies Allergy Verified 06/09/25 14:34 Vital Signs Vital Signs - 24 hr 06/28/25 20:22 06/29/25 00:17 06/29/25 00:17 Temperature Pulse Rate 63 83 90 Respiratory Rate 13 Blood Pressure 101/57 L 171/64 H 167/64 H Pulse Oximetry 96 Oxygen Delivery Room Air 06/29/25 00:19 06/29/25 00:23 Temperature 36.4 C Pulse Rate 92 Respiratory Rate Blood Pressure 145/55 H Pulse Oximetry Oxygen Delivery Exam Narrative: GENERAL: Well appearing, well-nourished, non-toxic, in no acute distress. HEAD: Normocephalic, atraumatic. NECK: Supple. No adenopathy, no masses. RESPIRATORY: Airway patent, respirations nonlabored. Clear to auscultation bilaterally, no rales, rhonchi, wheezing. CARDIOVASCULAR: Regular rate and rhythm. Systolic murmur noted. Peripheral pulses 2+ and equal bilaterally. ABDOMINAL: Soft, nontender, nondistended, no hepatosplenomegaly. Normoactive BS. MUSCULOSKELETAL: Moves all extremities. Strength/ROM intact without gross deformities. Mild lumbar tenderness to palpation SKIN: Warm, dry, pallor. No rashes. NEURO: A&O X3. Speech clear. Cranial nerves II-XII intact. No ataxic movements. PSYCHIATRIC: Appropriate mood and affect. Normal interaction. H&P: Results Labs Labs: Short CBC 06/28/25 Range/Units 21:05 WBC 15.0 H (4.5-10.0) K/mm3 Hgb 9.8 L (14.0-18.0) g/dL Hct 29.6 L (42.0-52.0) % Plt Count 258 (150-375) k/mm3 BMP 06/28/25 21:05 Sodium 131 L Potassium 4.2 Chloride 98 Carbon Dioxide 23 BUN 21 H Creatinine 1.38 H Glucose 130 H Calcium 9.1 Cardiac Enzymes 06/28/25 Range/Units 21:05 Troponin I < 0.012 (0.000-0.034) ng/mL Liver Function 06/28/25 Range/Units 21:05 Total Bilirubin 0.2 (0.2-1.3) mg/dL AST 22 (17-59) U/L ALT 14 (6-50) U/L Alkaline Phosphatase 72 (38-126) U/L Albumin 4.0 (3.5-5.1) g/dL Urine 06/28/25 Range/Units 23:26 Urine Color Yellow (Yellow) Urine Appearance Clear (Clear) Urine pH 6.5 (5.0-9.0) Ur Specific [place] 1.022 (1.001-1.035) Urine Protein Negative (Negative) mg/dL Urine Glucose (UA) Negative (Negative) mg/dL Pulse Oximetry SpO2 results: 97-99% on room air Interpretation: No need for supplemental oxygenation at this time ECG Attestation: I personally reviewed and interpreted this ECG as follows: ECG completion date: 06/28/25 ECG completion time: 21:23 Prior ECG tracings: not available for review Interpretation: Sinus rhythm rate of 62 OR interval 203 borderline first-degree block QRS duration 95 QTC 392 QRS axis 93 borderline right axis deviation, no STEMI or acute ischemic changes noted Imaging CT scan - head: Radiologist's impression: History: Syncope, fall PROCEDURE: CT head without contrast. COMPARISON: None TECHNIQUE: Axial imaging of the head performed from the skull base to the vertex without IV contrast. Sagittal and coronal reformations obtained. DLP: 605 mGy-cm FINDINGS: The ventricles are normal in size, shape and position. There is no mass, mass effect or midline shift. There is no abnormal extra-axial fluid collection or intracranial hemorrhage. Visualized paranasal sinuses are clear. The mastoid air cells are well aerated. No acute displaced fractures within the overlying cranium. Impression: No acute intracranial hemorrhage or suspicious mass effect. Reviewed, dictated and finalized at location A. CT Cervical Spine: Radiologist's impression: History: Syncope, fall PROCEDURE: CT cervical spine without intravenous contrast. COMPARISON: None TECHNIQUE: Multiple contiguous axial images of the cervical spine were performed without the administration of intravenous contrast. DLP: 354 mGy-cm FINDINGS: Posterior fixation from the level of C2-T2 is identified. Ankylosis of C3 through C7 is present. There are bridging endplate osteophytes at multiple levels in the cervical and proximal thoracic spine, consistent with diffuse idiopathic skeletal hyperostosis (DISH). No acute periprosthetic fractures are present. The bilateral lung apices are unremarkable. No soft tissue abnormality is appreciated. The airway is patent. Impression: Significant degenerative disease, without acute fracture. Reviewed, dictated and finalized at location A. Chest x-ray: Radiologist's impression: CHEST RADIOGRAPH CLINICAL HISTORY: SYNCOPE . COMPARISON: None available TECHNIQUE: Single portable view of the chest. FINDINGS The cardiomediastinal silhouette is unremarkable. The lungs are clear. IMPRESSION: No focal infiltrate or effusion. Reviewed, dictated and finalized at location A. CT Lumbar Spine: Radiologist's impression: History: Syncope, fall PROCEDURE: CT lumbar spine without intravenous contrast. COMPARISON: None TECHNIQUE: Multiple contiguous axial images of the lumbar spine were performed without the administration of intravenous contrast. DLP: 530 mGy-cm FINDINGS: Straightening of the normal lordotic curvature of the lumbar spine is identified. Compression of the superior endplate of L1 is identified for which an acute fracture is suspected. Irregular lucencies are identified within the vertebral body to the right and left of midline. Compression of the superior endplate of the L3 vertebral body is also noted, likely chronic. Osteophyte formation is identified at the levels of L3/L4 and L4/L5. Significant facet arthropathy is noted at multiple levels. Impression: Compression of the superior endplate of L1 is identified for which an acute fracture is suspected and for which clinical correlation is needed regarding point tenderness. Degenerative disease is also noted, as detailed above. Reviewed, dictated and finalized at location A. CT scan - chest: Radiologist's impression: EXAMINATION: CTA chest PE protocol DATE: 06/28/2025 22:58 CDT INDICATION: Syncope, fall, elevated d-dimer TECHNIQUE: Computed tomographic angiography (CTA) of the chest was performed with 100 mL Omnipaque-350 intravenous contrast. The dose-length product was 536.68 mGy-cm. Maximum intensity projection 3D-reconstructions of the aorta and other arteries were constructed by the technologist on a separate workstation. COMPARISON: None. FINDINGS/OBSERVATIONS: PULMONARY ARTERIES: No filling defect is identified within the main or proximal pulmonary artery. The main pulmonary artery is not enlarged. THORACIC AORTA: No aneurysmal dilatation or dissection is present. The great vessels are intact LUNGS: Bibasilar atelectasis. The remainder of the lungs are clear. MEDIASTINUM: No morphologically suspicious or pathologically enlarged lymph nodes are identified within the mediastinum or bilateral axilla. BONES OF THE CHEST: No acute fracture. Fixation hardware at the levels of T1 and T2. No lytic or blastic lesions. HEART: The heart is of normal size, without pericardial effusion. IMPRESSION: No pulmonary embolus. No thoracic aortic dissection. Bibasilar atelectasis. Reviewed, dictated and finalized at location A. Assessment and Plan Assessment and plan (1) Syncope and collapse: Code(s): R55 - Syncope and collapse Status: Acute Assessment and Plan: -Syncope of unknown cause with lightheadedness then awakened on the ground -One prior episode years ago similar -Admit to Tele bed to monitor for dysrhythmia and obtain Echocardiogram (2) Compression fracture of L1 lumbar vertebra: Code(s): S32.010A - Wedge compression fracture of first lumbar vertebra, initial encounter for closed fracture Status: Acute Assessment and Plan: -CT scan of lumbar spine shows acute compression fracture and chronic compression fracture of L3 -Recent L2-L5 spinal fusion at [facility], s/p JAYRO discharge about 10 days ago (3) SUSANA (acute kidney injury): Code(s): N17.9 - Acute kidney failure, unspecified Status: Acute Assessment and Plan: -Creatinine 1.38 with estimated GFR 51 on admission last result on record was creatinine 1.0 with estimated GFR greater than 60 -IV fluids infusing -Repeat labs in AM -Avoid nephrotoxins whenever possible (4) HTN (hypertension): Code(s): I10 - Essential (primary) hypertension Status: Acute Assessment and Plan: -Transient hypotension is a possibility as cause of lightheadedness and syncope -Resume home medications cautiously, stop HCTZ due to overactive bladder and SUSANA Quality VTE Prophylaxis VTE prophylaxis: mechanical ordered Hospitalist [facility] Advance Care Plan I have confirmed that the patient's Advanced Care Plan is present, code status is documented, or surrogate decision maker is listed in patient medical record.: Yes Medication Reconciliation I have utilized all available resources to obtain, update and review the patients current medications (includes all prescriptions, OTC, herbals, cannabis, and nutritional supplements).: Yes
[2025-06-29] MEDS: SODIUM CHLORIDE 0.9% IV 1,000 ML 125 ML IV CONT ×3 (02:36→20:23)
[2025-06-29] MEDS: ACETAMINOPHEN 325 MG TABLET 650 MG PO (04:24)
[2025-06-29 06:14] LABS: Hematocrit 31.5 % (42.0-52.0); Hemoglobin 10.3 g/dL (14.0-18.0); Immature Granulocyte Percent A 0.6 % (0-0.5); Lymphocytes Absolute Auto 1.95 K/mm3 (0.9-3.2); Mean Corpuscular HGB Conc 32.7 g/dl (32-36); Mean Corpuscular Hemoglobin 28.1 pg (26-34); Mean Corpuscular Volume 85.8 fl (80-100); Nucleated Red Blood Cells Absolute Auto 0.000 K/mm3 (0.0-0.012); Nucleated Red Blood Cells Perc 0.0 % (0.0-0.2); Platelet Count Result 280 k/mm3 (150-375); Red Blood Count 3.67 M/mm3 (4.6-6.20); White Blood Count 8.9 K/mm3 (4.5-10.0)
[2025-06-29 06:32] LABS: Alanine Aminotransferase 15 U/L (6-50); Albumin Level 4.2 g/dL (3.5-5.1); Alkaline Phosphatase 78 U/L (38-126); Anion Gap 7 mmol/L (4-12); Aspartate Amino Transferase 24 U/L (17-59); Bilirubin,Total 0.4 mg/dL (0.2-1.3); Blood Urea Nitrogen 20 mg/dL (9-20); Calcium 9.6 mg/dL (8.4-10.2); Carbon Dioxide 26 mmol/L (22-30); Chloride 96 mmol/L (98-107); Estimated CRCL calculation 50 ml/min; Estimated Glomerular Filt Rate > 60; Glucose 113 mg/dL (65-110); Magnesium 1.8 mg/dL (1.6-2.3); Potassium 3.9 mmol/L (3.4-5.0); Sodium 129 mmol/L (137-145); Total Protein 7.0 g/dL (6.3-8.2)
[2025-06-29 06:43] LABS: Troponin I < 0.012 ng/mL (0.000-0.034)
--- NOTE | 2025-06-29 09:48 | PC.NURSE ---
call to [place] pharmacy to confirm home med list
[2025-06-29] MEDS: TAMSULOSIN HCL 0.4 MG CAPSULE PO (11:40)
[2025-06-29] MEDS: SOLIFENACIN 5 MG TABLET PO (11:40)
[2025-06-29] MEDS: PANTOPRAZOLE 40 MG TABLET PO (11:40)
[2025-06-29] MEDS: VALSARTAN 80 MG TABLET PO (11:41)
[2025-06-29] MEDS: ACETAMINOPHEN 500 MG TABLET 1000 MG PO ×2 (12:46→23:48)
--- NOTE | 2025-06-29 13:48 | P.PNIM_ITS ---
Progress Note: A&P Assessment and Plan (1) Syncope and collapse: Code(s): R55 - Syncope and collapse Status: Acute Assessment and Plan: Syncope of unknown cause with lightheadedness then awakened on the ground. -One prior episode years ago similar -Admit to Tele bed to monitor for dysrhythmia --Echocardiogram pending --Check orthostatic VS (2) Compression fracture of L1 lumbar vertebra: Code(s): S32.010A - Wedge compression fracture of first lumbar vertebra, initial encounter for closed fracture Status: Acute Assessment and Plan: CT scan of lumbar spine shows acute compression fracture of L1 and chronic compression fracture of L3 -Recent L2-L5 spinal fusion at [facility], Dr. Park [phone], s/p JAYRO discharge about 10 days ago (3) SUSANA (acute kidney injury): Code(s): N17.9 - Acute kidney failure, unspecified Status: Acute Assessment and Plan: Creatinine 1.38 with estimated GFR 51 on admission last result on record was creatinine 1.0 with estimated GFR greater than 60 Improved to 1.16 overight with fluids -Avoid nephrotoxins whenever possible (4) HTN (hypertension): Code(s): I10 - Essential (primary) hypertension Status: Acute Assessment and Plan: Transient hypotension is a possibility as cause of lightheadedness and syncope -Resume home medications cautiously, holding HCTZ due to overactive bladder and SUSANA Time Spent With Patient Time: 58 minutes Subjective Date/time seen: 06/29/25 13:48 Interval history: VSS. Treating syncope. Na 129 Holding Hctz, amlodipine Left knee pain minimal. No dizziness. Review of Systems Review of Systems: All systems reviewed & are unremarkable except as noted in HPI and below Exam Narrative: GENERAL: Well appearing, well-nourished, non-toxic, in no acute distress. HEAD: Normocephalic, atraumatic. NECK: Supple. No adenopathy, no masses. RESPIRATORY: Airway patent, respirations nonlabored. Clear to auscultation bilaterally, no rales, rhonchi, wheezing. CARDIOVASCULAR: Regular rate and rhythm. Systolic murmur noted. Peripheral pulses 2+ and equal bilaterally. ABDOMINAL: Soft, nontender, nondistended, no hepatosplenomegaly. Normoactive BS. MUSCULOSKELETAL: Moves all extremities. Strength/ROM intact without gross deformities. Minimal lumbar tenderness to palpation SKIN: Warm, dry, pallor. No rashes. surgical incision low back NEURO: A&O X3. Speech clear. Cranial nerves II-XII intact. No ataxic movements. PSYCHIATRIC: Appropriate mood and affect. Normal interaction. Objective Data Vital Signs Vital Signs: Vital Signs - 24 hr 06/28/25 20:22 06/28/25 22:51 06/28/25 23:12 Temperature Pulse Rate 63 74 70 Respiratory Rate 13 13 12 Blood Pressure 101/57 L 129/64 139/63 Pulse Oximetry 96 97 100 Oxygen Delivery Room Air 06/28/25 23:41 06/29/25 00:11 06/29/25 00:15 Temperature Pulse Rate 72 91 103 H Respiratory Rate 10 L 12 21 H Blood Pressure 139/61 179/75 H Pulse Oximetry 99 99 Oxygen Delivery 06/29/25 00:17 06/29/25 00:17 06/29/25 00:17 Temperature Pulse Rate 83 90 85 Respiratory Rate 11 L Blood Pressure 171/64 H 167/64 H 171/64 H Pulse Oximetry 98 Oxygen Delivery 06/29/25 00:19 06/29/25 00:19 06/29/25 00:21 Temperature Pulse Rate 92 88 98 Respiratory Rate 17 24 H Blood Pressure 145/55 H 167/64 H 145/55 H Pulse Oximetry Oxygen Delivery 06/29/25 00:23 06/29/25 00:30 06/29/25 00:52 Temperature 97.6 F Pulse Rate 83 84 Respiratory Rate 14 16 Blood Pressure 153/65 H Pulse Oximetry 99 98 Oxygen Delivery 06/29/25 01:21 06/29/25 01:31 06/29/25 01:41 Temperature Pulse Rate 72 72 71 Respiratory Rate 9 L 10 L 13 Blood Pressure 146/61 H 138/63 170/60 H Pulse Oximetry 97 97 98 Oxygen Delivery 06/29/25 01:45 06/29/25 01:51 06/29/25 02:00 Temperature Pulse Rate 72 71 69 Respiratory Rate 11 L 10 L 13 Blood Pressure 137/59 L Pulse Oximetry 97 97 98 Oxygen Delivery 06/29/25 02:01 06/29/25 02:11 06/29/25 02:32 Temperature Pulse Rate 70 67 66 Respiratory Rate 10 L 10 L 13 Blood Pressure 137/60 147/61 H 149/61 H Pulse Oximetry 97 98 97 Oxygen Delivery 06/29/25 05:04 06/29/25 08:03 06/29/25 08:30 Temperature 98.1 F Pulse Rate 66 70 Respiratory Rate 16 Blood Pressure 135/57 L Pulse Oximetry 95 Oxygen Delivery Room Air Intake/Output Intake/Output: Intake & Output 06/26/25 06/27/25 06/28/25 06/29/25 23:59 23:59 23:59 23:59 Intake Total 1598 Output Total 400 Balance 1198 Meds/Results Medications: Active Medications Generic Name Dose Route Start Last Admin Trade Name Freq PRN Reason Stop Dose Admin Acetaminophen 1,000 mg 06/29/25 09:45 06/29/25 12:46 Acetaminophen 500 Mg Tablet PO 1,000 mg Q6H PRN Administration fever or pain Atorvastatin Calcium 20 mg 06/29/25 21:00 Atorvastatin 20 Mg Tablet PO HS HALEY Hydrochlorothiazide 12.5 mg 06/29/25 09:55 06/29/25 11:41 Hydrochlorothiazide 12.5 Mg Capsule PO Not Given QAM HALEY Sodium Chloride 1,000 mls @ 125 mls/hr 06/29/25 01:55 06/29/25 11:41 Normal Saline Iv IV CONT 125 mls/hr .Q8H HALEY Administration Ibuprofen 400 mg 06/29/25 01:55 Ibuprofen 400 Mg Tablet PO Q6H PRN Mild Pain (1-3) or Fever Oxycodone HCl 5 mg 06/29/25 09:45 Oxycodone Hcl (*Crx) 5 Mg Tab Ir PO Q8H PRN pain Pantoprazole Sodium 40 mg 06/29/25 09:55 06/29/25 11:40 Pantoprazole 40 Mg Tablet PO 40 mg QAM HALEY Administration Perflutren Lipid Microsphere 0 ml 06/29/25 04:21 Perflutren Lipid Microspheres 1.5 Ml Vial Diluted To 10 Ml Total Volume IV PUSH 07/02/25 04:21 ONCE PRN adequate visualization Protocol Polyethylene Glycol 17 gm 06/29/25 09:45 Polyethylene Glycol 3350 17 Gm Powd.Pack PO DAILY PRN constipation Senna 8.6 mg 06/29/25 21:00 Sennosides 8.6 Mg Tablet PO HS HALEY Solifenacin 5 mg 06/29/25 09:50 06/29/25 11:40 Solifenacin 5 Mg Tablet PO 5 mg DAILY HALEY Administration Tamsulosin HCl 0.4 mg 06/29/25 09:50 06/29/25 11:40 Tamsulosin Hcl 0.4 Mg Capsule PO 0.4 mg DAILY HALEY Administration Valsartan 80 mg 06/29/25 09:55 06/29/25 11:41 Valsartan 80 Mg Tablet PO 80 mg QAM HALEY Administration Radiology Results: ITS Impressions Head CT 06/28/25 21:57 Impression: No acute intracranial hemorrhage or suspicious mass effect. Cervical Spine CT 06/28/25 22:39 Impression: Significant degenerative disease, without acute fracture. Chest X-Ray 06/28/25 22:39 IMPRESSION: No focal infiltrate or effusion. Lumbar Spine CT 06/28/25 22:43 Impression: Compression of the superior endplate of L1 is identified for which an acute fracture is suspected and for which clinical correlation is needed regarding point tenderness. Degenerative disease is also noted, as detailed above. Chest CTA 06/28/25 22:58 IMPRESSION: No pulmonary embolus. No thoracic aortic dissection. Bibasilar atelectasis. Labs Labs: Laboratory Results - last 24 hr 06/28/25 06/28/25 06/28/25 21:05 22:08 23:26 WBC 15.0 H RBC 3.46 L Hgb 9.8 L Hct 29.6 L MCV 85.5 MCH 28.3 MCHC 33.1 RDW 13.3 Plt Count 258 MPV 9.6 Immature Gran % (Auto) 0.7 H Neut % (Auto) 84.1 H Lymph % (Auto) 8.5 L [place] % (Auto) 5.9 Eos % (Auto) 0.4 Baso % (Auto) 0.4 Lymph # (Auto) 1.27 [place] # (Auto) 0.9 H Eos # (Auto) 0.1 Baso # (Auto) 0.1 Abs Immat Gran (auto) 0.11 H Absolute Neuts (auto) 12.6 H Absolute Nucleated RBC 0.000 Nucleated RBC % 0.0 PT 14.4 INR 1.1 APTT 33.3 D-Dimer 1.18 H Sodium 131 L Potassium 4.2 Chloride 98 Carbon Dioxide 23 Anion Gap 10 BUN 21 H Creatinine 1.38 H Estim Creat Clear Calc Not Reportable Estimated GFR 51 L Glucose 130 H Calcium 9.1 Magnesium 1.7 Total Bilirubin 0.2 AST 22 ALT 14 Alkaline Phosphatase 72 Troponin I < 0.012 NT-Pro-B Natriuret Pep 96 Total Protein 6.7 Albumin 4.0 TSH (Reflex) 1.680 Urine Color Yellow Urine Appearance Clear Urine pH 6.5 Ur Specific [place] 1.022 Urine Protein Negative Urine Glucose (UA) Negative Urine Ketones Negative Ur Blood (Man) Negative Urine Nitrate Negative Urine Bilirubin Negative Urine Urobilinogen 0.2 Leukocyte Esterase Rfl Negative Ethyl Alcohol < 10 Influenza A (RT-PCR) Negative Influenza B (RT-PCR) Negative RSV (RT-PCR) Negative SARS-CoV-2 RNA (RT-PCR) Negative 06/29/25 05:43 WBC 8.9 RBC 3.67 L Hgb 10.3 L Hct 31.5 L MCV 85.8 MCH 28.1 MCHC 32.7 RDW 13.3 Plt Count 280 MPV 10.0 Immature Gran % (Auto) 0.6 H Neut % (Auto) 67.9 Lymph % (Auto) 21.8 [place] % (Auto) 7.9 Eos % (Auto) 1.0 Baso % (Auto) 0.8 Lymph # (Auto) 1.95 [place] # (Auto) 0.7 H Eos # (Auto) 0.1 Baso # (Auto) 0.1 Abs Immat Gran (auto) 0.05 H Absolute Neuts (auto) 6.1 Absolute Nucleated RBC 0.000 Nucleated RBC % 0.0 PT INR APTT D-Dimer Sodium 129 L Potassium 3.9 Chloride 96 L Carbon Dioxide 26 Anion Gap 7 BUN 20 Creatinine 1.16 Estim Creat Clear Calc 50 Estimated GFR > 60 Glucose 113 H Calcium 9.6 Magnesium 1.8 Total Bilirubin 0.4 AST 24 ALT 15 Alkaline Phosphatase 78 Troponin I < 0.012 NT-Pro-B Natriuret Pep Total Protein 7.0 Albumin 4.2 TSH (Reflex) Urine Color Urine Appearance Urine pH Ur Specific [place] Urine Protein Urine Glucose (UA) Urine Ketones Ur Blood (Man) Urine Nitrate Urine Bilirubin Urine Urobilinogen Leukocyte Esterase Rfl Ethyl Alcohol Influenza A (RT-PCR) Influenza B (RT-PCR) RSV (RT-PCR) SARS-CoV-2 RNA (RT-PCR) Quality VTE Prophylaxis VTE prophylaxis: mechanical ordered Hospitalist [facility] Advance Care Plan I have confirmed that the patient's Advanced Care Plan is present, code status is documented, or surrogate decision maker is listed in patient medical record.: Yes Medication Reconciliation I have utilized all available resources to obtain, update and review the patients current medications (includes all prescriptions, OTC, herbals, cannabis, and nutritional supplements).: Yes
[2025-06-29] MEDS: IBUPROFEN 400 MG TABLET PO (17:44)
[2025-06-29] MEDS: FLUTICASONE PROPIONATE 0.05% NA SPR 16 GM BTL (*BKC) 1 SPRAY NASAL (20:08)
[2025-06-29] MEDS: SENNOSIDES 8.6 MG TABLET PO (20:09)
[2025-06-29] MEDS: ATORVASTATIN 20 MG TABLET PO (20:09)
[2025-06-29] MEDS: oxyCODONE HCL (*CRX) 5 MG TAB IR PO (20:21)
[2025-06-30] VITALS: PULSE 78
--- NOTE | 2025-06-30 | ECHO_ITS ---
Patient Info Name: Federico Shirley Age: 70 years : 1955 Gender: Male Ht: 68 in Wt: 177 lbs BSA: 1.98 m2 HR: 77 bpm BP: 159 / 77 mmHg Technical Quality: Good Exam Date: 06/30/2025 9:05 AM Patient Status: I Admit Date: 06/30/2025 Exam Type: CA echo doppler w bubble study Complete two-dimensional, color flow and Doppler transthoracic echocardiogram is performed with agitated saline. Staff Referring Physician: Janeth Bowman Senior Marketing Engineer: Destiny Dumont Attending Provider: Erinn Jimenez Contrast/Agitated Saline Contrast/Ag. Saline: Agitated Saline Amount: 20.00 ml Summary 1. Left ventricular chamber dimension is normal. 2. Left ventricular systolic function is normal, estimated at 65-70. 3. The left ventricular diastolic function is abnormal. 4. E/e' 12 is mildly elevated. 5. Left atrial chamber dimension is mildly enlarged. 6. There is moderate aortic valve sclerosis. 7. There is mild mitral valve regurgitation. 8. There is trace tricuspid valve regurgitation. 9. Moderate pulmonary hypertension, estimated pulmonary arterial systolic pressure is 55 mmHg. Left Ventricle Left ventricular chamber dimension is normal. Left ventricular systolic function is normal, estimated at 65-70. The left ventricular diastolic function is abnormal. E/e' 12 is mildly elevated. Right Ventricle Right ventricular chamber dimension is normal. Right ventricular systolic function is normal and with normal TAPSE 2.3 cm. Left Atria Left atrial chamber dimension is mildly enlarged. Right Atria Right atrial chamber dimension is normal. Atrial Septum Intact interatrial septum visualized by 2D and agitated saline imaging. Agitated saline injection with and without valsalva maneuver opacified right side cardiac chambers without shunt to left side cardiac chambers. Aortic Valve The aortic valve is trileaflet. There is moderate aortic valve sclerosis. There is no aortic valve stenosis. There is no aortic valve regurgitation. Pulmonic Valve There is no pulmonic regurgitation. Mitral Valve There is no mitral valve stenosis. There is mild mitral valve regurgitation. Tricuspid Valve There is trace tricuspid valve regurgitation. Moderate pulmonary hypertension, estimated pulmonary arterial systolic pressure is 55 mmHg. Pericardium/Pleural There is no pericardial effusion. Inferior Vena Cava Normal inferior vena cava with >50% collapse upon inspiration consistent with normal right atrial pressure, 5 mmHg. Aorta The aortic root size at the sinus of Valsalva is normal. Left Ventricular Outflow Tract Name Value Normal LVOT 2D LVOT Diameter 2.0 cm LVOT Doppler LVOT Peak Velocity 165 cm/s LVOT Peak Gradient 10 mmHg LVOT Mean Gradient 5 mmHg LVOT VTI 37 cm LVOT VTI/AV VTI Ratio 0.7 LVOT Stroke Volume 114 ml LVOT CO 8.3 l/min LVOT CI 4.2 l/min/m2 Pulmonic Valve Name Value Normal RVOT Doppler RVOT Peak Velocity 98 cm/s RVOT Peak Gradient 4 mmHg PV Doppler PV Peak Velocity 126 cm/s PV Peak Gradient 6 mmHg Mitral Valve Name Value Normal MV Regurgitation Doppler MR Peak Gradient 191 mmHg MV Diastolic Function MV E Peak Velocity 145 cm/s MV A Peak Velocity 96 cm/s MV E/A 1.5 MV Decel Time (PW) 134 ms MV Annular TDI MV E/e' (Septal) 11.8 MV E/e' (Lateral) 14.3 MV E/e' (Average) 13.0 Tricuspid Valve Name Value Normal TV Regurgitation Doppler TR Peak Velocity 354 cm/s TR Peak Gradient 29 mmHg Estimated PAP/RSVP RA Pressure 5 mmHg <=5 PA Systolic Pressure 55 mmHg <36 RV Systolic Pressure 55 mmHg <36 Aortic Valve Name Value Normal AV Doppler AV Peak Velocity 233 cm/s AV Peak Gradient 17 mmHg AV Mean Gradient 11 mmHg AV VTI 54 cm AV Area (Cont Eq VTI) 2.1 cm2 >=3.0 AV Area (Cont Eq Chance) 2.2 cm2 AV DI (Chance) 0.71 AV Regurgitation 2D LVOT Area 3.1 cm2 Ventricles Name Value Normal LV Dimensions 2D/MM IVS Diastolic Thickness (2D) 0.9 cm 0.6-1.0 LVID Diastole (2D) 4.1 cm 4.2-5.8 LVIW Diastolic Thickness (2D) 1.1 cm 0.6-1.0 LVID Systole (2D) 2.7 cm 2.5-4.0 LVOT Diameter 2.0 cm LV Mass (2D Cubed) 132.09 g 88.00-224.00 LV Mass Index (2D Cubed) 67 g/m2 49-115 Relative Wall Thickness (2D) 0.51 <=0.42 LV Fractional Shortening/Ejection Fraction 2D/MM LV Fractional Shortening (2D) 34 % 25-43 LV EF (2D Teichholz) 64 % LV Diastolic Volume (4C MOD) 82 ml LV EF (4C MOD) 55 % LV Diastolic Volume (2C MOD) 101 ml LV EF (2C MOD) 65 % LV Diastolic Volume (BP MOD) 97 ml 62-150 LV Diastolic Volume Index (BP MOD) 49 ml/m2 34-74 LV Systolic Volume (BP MOD) 38 ml 21-61 LV Systolic Volume Index (BP MOD) 19 ml/m2 11-31 LV EF (BP MOD) 61 % 52-72 LV Diastolic Length (4C) 7.2 cm LV Systolic Length (4C) 6.1 cm LV Stroke Volume (4C MOD) 45 ml Atria Name Value Normal LA Dimensions LA Volume (4C A-L) 60 ml LA Volume (BP A-L) 57 ml RA Dimensions RA Systolic Major Schroeder Length (4C) 5.0 cm 2.1-2.7 RA Area (4C) 17.0 cm2 <=18.0 Report Signatures
[2025-06-30 04:00] VITALS: PULSE 66
[2025-06-30] MEDS: SODIUM CHLORIDE 0.9% IV 1,000 ML 125 ML IV CONT (04:43)
[2025-06-30] MEDS: oxyCODONE HCL (*CRX) 5 MG TAB IR PO (04:46)
[2025-06-30 05:42] VITALS: BP 159/77; PULSE 71; RESP 18; TEMP 36.2; O2SAT 99
[2025-06-30 06:41] LABS: Hematocrit 32.2 % (42.0-52.0); Hemoglobin 10.6 g/dL (14.0-18.0); Immature Granulocyte Percent A 0.3 % (0-0.5); Lymphocytes Absolute Auto 1.77 K/mm3 (0.9-3.2); Mean Corpuscular HGB Conc 32.9 g/dl (32-36); Mean Corpuscular Hemoglobin 28.3 pg (26-34); Mean Corpuscular Volume 86.1 fl (80-100); Nucleated Red Blood Cells Absolute Auto 0.000 K/mm3 (0.0-0.012); Nucleated Red Blood Cells Perc 0.0 % (0.0-0.2); Platelet Count Result 273 k/mm3 (150-375); Red Blood Count 3.74 M/mm3 (4.6-6.20); White Blood Count 6.6 K/mm3 (4.5-10.0)
[2025-06-30 07:15] LABS: Alanine Aminotransferase 13 U/L (6-50); Albumin Level 4.2 g/dL (3.5-5.1); Alkaline Phosphatase 78 U/L (38-126); Anion Gap 8 mmol/L (4-12); Aspartate Amino Transferase 25 U/L (17-59); Bilirubin,Total 0.4 mg/dL (0.2-1.3); Blood Urea Nitrogen 12 mg/dL (9-20); Calcium 9.4 mg/dL (8.4-10.2); Carbon Dioxide 25 mmol/L (22-30); Chloride 100 mmol/L (98-107); Estimated CRCL calculation 60 ml/min; Estimated Glomerular Filt Rate > 60; Glucose 102 mg/dL (65-110); Magnesium 1.7 mg/dL (1.6-2.3); Potassium 4.0 mmol/L (3.4-5.0); Sodium 133 mmol/L (137-145); Total Protein 7.2 g/dL (6.3-8.2)
[2025-06-30 08:00] VITALS: PULSE 71; RESP 18; O2SAT 99
--- NOTE | 2025-06-30 08:59 | PM.IMPN ---
Progress Note: A&P Assessment and Plan (1) Syncope and collapse: Code(s): R55 - Syncope and collapse Status: Acute Assessment and Plan: Syncope of unknown cause with lightheadedness then awakened on the ground. -One prior episode years ago similar -Monitoring on tele, NSR --Echocardiogram pending --Check orthostatic VS (2) Compression fracture of L1 lumbar vertebra: Code(s): S32.010A - Wedge compression fracture of first lumbar vertebra, initial encounter for closed fracture Status: Acute Assessment and Plan: CT scan of lumbar spine shows acute compression fracture of L1 and chronic compression fracture of L3 -Recent L2-L5 spinal fusion at [facility], Dr. Park [phone], s/p JAYRO discharge about 10 days ago (3) SUSANA (acute kidney injury): Code(s): N17.9 - Acute kidney failure, unspecified Status: Acute Assessment and Plan: Creatinine 1.38 with estimated GFR 51 on admission last result on record was creatinine 1.0 with estimated GFR greater than 60 Improved to 1.16 overight with fluids -Avoid nephrotoxins whenever possible (4) HTN (hypertension): Code(s): I10 - Essential (primary) hypertension Status: Acute Assessment and Plan: Transient hypotension is a possibility as cause of lightheadedness and syncope -Resume home medications cautiously, holding HCTZ due to overactive bladder and SUSANA Subjective Date/time seen: 06/30/25 08:59 Interval history: No low back pain Left a message for Dr. Park at [facility] Dr. Celis [phone] Review of Systems Review of Systems: All systems reviewed & are unremarkable except as noted in HPI and below Exam Narrative: GENERAL: Well appearing, well-nourished, non-toxic, in no acute distress. HEAD: Normocephalic, atraumatic. NECK: Supple. No adenopathy, no masses. RESPIRATORY: Airway patent, respirations nonlabored. Clear to auscultation bilaterally, no rales, rhonchi, wheezing. CARDIOVASCULAR: Regular rate and rhythm. Systolic murmur noted. Peripheral pulses 2+ and equal bilaterally. ABDOMINAL: Soft, nontender, nondistended, no hepatosplenomegaly. Normoactive BS. MUSCULOSKELETAL: Moves all extremities. Strength/ROM intact without gross deformities. Minimal lumbar tenderness to palpation SKIN: Warm, dry, pallor. No rashes. surgical incision low back NEURO: A&O X3. Speech clear. Cranial nerves II-XII intact. No ataxic movements. PSYCHIATRIC: Appropriate mood and affect. Normal interaction. Objective Data Vital Signs Vital Signs: Vital Signs - 24 hr 06/29/25 12:00 06/29/25 14:00 06/29/25 16:00 Temperature 97.1 F L Pulse Rate 85 66 83 Respiratory Rate 16 Blood Pressure 145/57 H Pulse Oximetry 99 Oxygen Delivery 06/29/25 20:00 06/29/25 20:00 06/29/25 22:00 Temperature 97 F L Pulse Rate 74 71 74 Respiratory Rate 18 18 Blood Pressure 174/58 H Pulse Oximetry 98 98 Oxygen Delivery Room Air 06/29/25 23:25 06/30/25 00:00 06/30/25 04:00 Temperature Pulse Rate 78 66 Respiratory Rate Blood Pressure 179/65 H Pulse Oximetry Oxygen Delivery 06/30/25 05:42 Temperature 97.1 F L Pulse Rate 71 Respiratory Rate 18 Blood Pressure 159/77 H Pulse Oximetry 99 Oxygen Delivery Intake/Output Intake/Output: Intake & Output 06/27/25 06/28/25 06/29/25 06/30/25 23:59 23:59 23:59 23:59 Intake Total 2838 2600 Output Total 2550 3275 Balance 288 -245 Meds/Results Medications: Active Medications Generic Name Dose Route Start Last Admin Trade Name Freq PRN Reason Stop Dose Admin Acetaminophen 1,000 mg 06/29/25 09:45 06/29/25 23:48 Acetaminophen 500 Mg Tablet PO 1,000 mg Q6H PRN Administration fever or pain Atorvastatin Calcium 20 mg 06/29/25 21:00 06/29/25 20:09 Atorvastatin 20 Mg Tablet PO 20 mg HS HALEY Administration Fluticasone Propionate 1 spray 06/29/25 18:44 06/29/25 20:08 Fluticasone Propionate 0.05% Na Spr 16 Gm Btl (*Bkc) NASAL 1 spray Q12HR PRN Administration Nasal Congestion Sodium Chloride 1,000 mls @ 125 mls/hr 06/29/25 01:55 06/30/25 04:43 Normal Saline Iv IV CONT 125 mls/hr .Q8H HALEY Administration Ibuprofen 400 mg 06/29/25 01:55 06/29/25 17:44 Ibuprofen 400 Mg Tablet PO 400 mg Q6H PRN Administration Mild Pain (1-3) or Fever Oxycodone HCl 5 mg 06/29/25 09:45 06/30/25 04:46 Oxycodone Hcl (*Crx) 5 Mg Tab Ir PO 5 mg Q8H PRN Administration pain Pantoprazole Sodium 40 mg 06/29/25 09:55 06/29/25 11:40 Pantoprazole 40 Mg Tablet PO 40 mg QAM HALEY Administration Perflutren Lipid Microsphere 0 ml 06/29/25 04:21 Perflutren Lipid Microspheres 1.5 Ml Vial Diluted To 10 Ml Total Volume IV PUSH 07/02/25 04:21 ONCE PRN adequate visualization Protocol Polyethylene Glycol 17 gm 06/29/25 09:45 Polyethylene Glycol 3350 17 Gm Powd.Pack PO DAILY PRN constipation Senna 8.6 mg 06/29/25 21:00 06/29/25 20:09 Sennosides 8.6 Mg Tablet PO 8.6 mg HS HALEY Administration Solifenacin 5 mg 06/29/25 09:50 06/29/25 11:40 Solifenacin 5 Mg Tablet PO 5 mg DAILY HALEY Administration Tamsulosin HCl 0.4 mg 06/29/25 09:50 06/29/25 11:40 Tamsulosin Hcl 0.4 Mg Capsule PO 0.4 mg DAILY HALEY Administration Trazodone HCl 100 mg 06/30/25 00:52 06/30/25 01:07 Trazodone Hcl 50 Mg Tablet PO 100 mg HS PRN Administration Insomnia Valsartan 80 mg 06/29/25 09:55 06/29/25 11:41 Valsartan 80 Mg Tablet PO 80 mg QAM HALEY Administration Radiology Results: ITS Impressions Head CT 06/28/25 21:57 Impression: No acute intracranial hemorrhage or suspicious mass effect. Cervical Spine CT 06/28/25 22:39 Impression: Significant degenerative disease, without acute fracture. Chest X-Ray 06/28/25 22:39 IMPRESSION: No focal infiltrate or effusion. Lumbar Spine CT 06/28/25 22:43 Impression: Compression of the superior endplate of L1 is identified for which an acute fracture is suspected and for which clinical correlation is needed regarding point tenderness. Degenerative disease is also noted, as detailed above. Chest CTA 06/28/25 22:58 IMPRESSION: No pulmonary embolus. No thoracic aortic dissection. Bibasilar atelectasis. Labs Labs: Laboratory Results - last 24 hr 06/30/25 06:23 WBC 6.6 RBC 3.74 L Hgb 10.6 L Hct 32.2 L MCV 86.1 MCH 28.3 MCHC 32.9 RDW 13.3 Plt Count 273 MPV 10.0 Immature Gran % (Auto) 0.3 Neut % (Auto) 60.3 Lymph % (Auto) 26.9 [place] % (Auto) 9.7 H Eos % (Auto) 2.0 Baso % (Auto) 0.8 Lymph # (Auto) 1.77 [place] # (Auto) 0.6 Eos # (Auto) 0.1 Baso # (Auto) 0.1 Abs Immat Gran (auto) 0.02 Absolute Neuts (auto) 4.0 Absolute Nucleated RBC 0.000 Nucleated RBC % 0.0 Sodium 133 L Potassium 4.0 Chloride 100 Carbon Dioxide 25 Anion Gap 8 BUN 12 D Creatinine 0.95 Estim Creat Clear Calc 60 Estimated GFR > 60 Glucose 102 Calcium 9.4 Magnesium 1.7 Total Bilirubin 0.4 AST 25 ALT 13 Alkaline Phosphatase 78 Total Protein 7.2 Albumin 4.2 Quality VTE Prophylaxis VTE prophylaxis: mechanical ordered
[2025-06-30] MEDS: ACETAMINOPHEN 500 MG TABLET 1000 MG PO (10:28)
[2025-06-30] MEDS: SOLIFENACIN 5 MG TABLET PO (10:30)
[2025-06-30] MEDS: VALSARTAN 80 MG TABLET PO (10:30)
[2025-06-30] MEDS: TAMSULOSIN HCL 0.4 MG CAPSULE PO (10:30)
[2025-06-30] MEDS: PANTOPRAZOLE 40 MG TABLET PO (10:31)
--- NOTE | 2025-06-30 11:17 | PM.DS ---
DS: Admitting Diagnosis Discharge Date 06/30/25 Admitting Diagnosis Syncope and collapse SUSANA DS: Discharge Diagnosis Discharge Diagnosis (1) Compression fracture of L1 lumbar vertebra: Code(s): S32.010A - Wedge compression fracture of first lumbar vertebra, initial encounter for closed fracture Status: Acute (2) SUSANA (acute kidney injury): Code(s): N17.9 - Acute kidney failure, unspecified Status: Acute (3) Uncontrolled hypertension: Code(s): I10 - Essential (primary) hypertension Status: Acute DS: Summary Hospital Course Reason for hospitalization: Copied from [facility] 06/29: This is a 70-year-old male patient admitted to the hospital due to syncope. 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 A similar syncopal episode occurred several years ago after starting duloxetine (Cymbalta) that interacted with his blood-pressure regimen and caused hypotension. Current medications include: ? Valsartan/hydrochlorothiazide (combination) ? Amlodipine ? Recently switched from oxybutynin to solifenacin for overactive bladder. The patient had previously expressed concern about the contradictory nature of taking oxybutynin to prevent urination while also taking hydrochlorothiazide, a diuretic, which he felt was counterproductive. ? Acetaminophen as needed (previously took frequent ibuprofen but now limits use) Recent events/relevant history: ? EMS noted severe dehydration at presentation. ? Patient reports a history of 34 years of incarceration, released last September, during which medication management was inconsistent, with different doctors changing prescriptions, including ibuprofen which was noted to affect kidney numbers. ? Patient's blood pressure typically runs a little high even on current medications, but not severely. ? Lumbar spine surgery a few weeks ago; doing well with physical therapy but still uses a walker for balance. CT shows a possible new vertebral fracture slightly above prior surgery, though patient is asymptomatic. ? Heart murmur previously noted by a pre-op nurse practitioner and his primary care physician Dr. Villela who stated it was not much to worry about. Associated/pertinent negatives today: denies chest pain, shortness of breath, nausea, vomiting, constipation, or diarrhea. Risk factors for syncope: diuretic (HCTZ), dehydration, multiple antihypertensives, possible structural heart disease (murmur), and possible arrhythmia. Hospital Course: Mr Shirley was admitted after a syncopal episode. NSR on telemetry. Mild SUSANA in the ED so held hctz. Echo was done and showed normal LVEF. Moderate pulmonary HTN. Stopped HCTZ and increased diovan from 80<120mg daily for control of HTN. D-dimer elevated. 06/28 CTA showed [address] PE. CT scan of lumbar spine shows acute compression fracture of L1 and chronic compression fracture of L3. Recent L2-L5 spinal fusion at [facility], Dr. Park [phone], s/p JAYRO discharge about 10 days ago. The ED called neurosurgery at [facility] and talked to Dr. Russell, planning follow up with orthopedic surgery. Left a message with Dr. Park's office. Spoke to Dr. Celis with neurosurgery and ok to discharge with follow up since no focal neurologic findings. No pain. 06/30/25 TTE 1. Left ventricular chamber dimension is normal. 2. Left ventricular systolic function is normal, estimated at 65-70. 3. The left ventricular diastolic function is abnormal. 4. E/e' 12 is mildly elevated. 5. Left atrial chamber dimension is mildly enlarged. 6. There is moderate aortic valve sclerosis. 7. There is mild mitral valve regurgitation. 8. There is trace tricuspid valve regurgitation. 9. Moderate pulmonary hypertension, estimated pulmonary arterial systolic pressure is 55 mmHg. Status at Discharge Cognitive/behavioral status at discharge: A&Ox4 Time Spent with Patient Time attestation: Total time spent providing and/or coordinating discharge services: 48 minutes Exam Narrative: GENERAL: Well appearing, well-nourished, non-toxic, in no acute distress. HEAD: Normocephalic, atraumatic. NECK: Supple. No adenopathy, no masses. RESPIRATORY: Airway patent, respirations nonlabored. Clear to auscultation bilaterally, no rales, rhonchi, wheezing. CARDIOVASCULAR: Regular rate and rhythm. Systolic murmur noted. Peripheral pulses 2+ and equal bilaterally. ABDOMINAL: Soft, nontender, nondistended, no hepatosplenomegaly. Normoactive BS. MUSCULOSKELETAL: Moves all extremities. Strength/ROM intact without gross deformities. Minimal lumbar tenderness to palpation SKIN: Warm, dry, pallor. No rashes. surgical incision low back NEURO: A&O X3. Speech clear. Cranial nerves II-XII intact. No ataxic movements. PSYCHIATRIC: Appropriate mood and affect. Normal interaction. DS: Data Data Completed and Pending Labs on day of discharge: Labs from last 24 hours 06/30/25 06:23 WBC 6.6 RBC 3.74 L Hgb 10.6 L Hct 32.2 L MCV 86.1 MCH 28.3 MCHC 32.9 RDW 13.3 Plt Count 273 MPV 10.0 Immature Gran % (Auto) 0.3 Neut % (Auto) 60.3 Lymph % (Auto) 26.9 [place] % (Auto) 9.7 H Eos % (Auto) 2.0 Baso % (Auto) 0.8 Lymph # (Auto) 1.77 [place] # (Auto) 0.6 Eos # (Auto) 0.1 Baso # (Auto) 0.1 Abs Immat Gran (auto) 0.02 Absolute Neuts (auto) 4.0 Absolute Nucleated RBC 0.000 Nucleated RBC % 0.0 Sodium 133 L Potassium 4.0 Chloride 100 Carbon Dioxide 25 Anion Gap 8 BUN 12 D Creatinine 0.95 Estim Creat Clear Calc 60 Estimated GFR > 60 Glucose 102 Calcium 9.4 Magnesium 1.7 Total Bilirubin 0.4 AST 25 ALT 13 Alkaline Phosphatase 78 Total Protein 7.2 Albumin 4.2 Discharge Plan Discharge Attending physician on discharge: Rosemarie Roque Consulting providers: Rosemarie Roque Discharging Clinician: Rosemarie Roque Anticipated Discharge Date/Time: 06/30/25 13:20 Patient Disposition: Home with Home Health Service Activity: march shower Diet: heart healthy Discharge Instructions: Follow up with your orthopedic surgeon at [facility] as scheduled this month. Dr. Park, Stopped HCTZ and increased diovan (valsartan) from 80mg to 120mg. Follow up with your PCP in 1-2 weeks. You should have labs in about 2 weeks to follow your creatinine Your cardiac echo showed moderate pulmonary HTN, incomplete relaxation. Follow up with your PCP. Treating blood pressure. You did not have a blood clot on CT Patient Instructions: Antibiotic Form, Pain Management in Older Adults (DC) Patient Language: [place] Stand Alone Forms: General Discharge Information Follow-up/Referrals: Jose Villela MD [Primary Care Provider] - 2 Weeks Discharge Medications: New valsartan [Diovan] 80 mg tablet 120 mg PO DAILY Qty: 60 2RF Continued solifenacin [Vesicare] 5 mg tablet 5 mg PO DAILY Patient Comments: this was a new med first and only dose 06/27/2025 polyethylene glycol 3350 17 gram/dose powder 17 g PO DAILY PRN (Reason: constipation) acetaminophen 500 mg capsule 1,000 mg PO Q6H PRN (Reason: fever or pain) sennosides 8.6 mg tablet 8.6 mg PO HS amlodipine [Norvasc] 5 mg Tablet 5 mg PO QAM Qty: 30 0RF atorvastatin [Lipitor] 20 mg tablet 20 mg PO HS Qty: 30 0RF tamsulosin 0.4 mg capsule 0.4 mg PO DAILY Qty: 30 0RF omeprazole 20 mg capsule,delayed release(DR/EC) 20 mg PO DAILY Qty: 30 0RF cyclobenzaprine 5 mg tablet 5 mg PO TID PRN (Reason: muscle spasm) Qty: 90 0RF oxycodone 5 mg tablet 5 mg PO Q8H PRN (Reason: pain) Qty: 20 0RF Discontinued valsartan-hydrochlorothiazide 80-12.5 mg tablet 1 tablet PO DAILY Qty: 30 0RF Other Ambulatory Orders: Basic Metabolic Panel (Routine) Timeframe: 1 Week Location: Determined by Patient Ordered By: Rosemarie Roque Date of admission: 06/30/25 10:20 Primary Care Provider: Jose Villela Admitting Provider: Erinn Jimenez Attending physician on admission: Erinn Jimenez Condition: Stable Quality VTE Prophylaxis VTE prophylaxis: pharmacologic ordered Hospitalist MIPS Heart Failure (Exclusion) Patient has history of Heart Transplant or Left Ventricular Assistive Device?: No IF YES, STOP HERE Heart Failure (Qualifier) Patient has current or prior documentation of LVEF less than or equal to 40%, or mod/servere depressed LVSF?: No IF NO, STOP HERE
[2025-06-30 14:00] VITALS: BP 145/79; PULSE 68; RESP 18; TEMP 36.6; O2SAT 98
== END 2025-06-30 15:10 | disposition home health service (06) | DRG 683 ==
LOC: ANHED 06-29 02:00 → ANH3MEDSUR 06-29 02:38
PROVIDERS: Nurse Practitioner; Admitting Provider Internal Medicine; Emergency Provider Registered Nurse; PCP Internal Medicine; Visit Provider Nurse Practitioner Acute Care
DX: N17.9 Acute kidney failure, unspecified (principal); S32.010A Wedge compression fracture of first lumbar vertebra, initial encounter for closed fracture; R55 Syncope and collapse; I10 Essential (primary) hypertension; E78.5 Hyperlipidemia, unspecified; N32.81 Overactive bladder; M48.062 Spinal stenosis, lumbar region with neurogenic claudication; G72.89 Other specified myopathies; Z20.822 Contact with and (suspected) exposure to COVID-19; Z87.891 Personal history of nicotine dependence; Z98.1 Arthrodesis status
CPT/HCPCS: 36415; 70450; 71045; 71275; 72125; 72131; 80053; 81003; 82077; 83735; 83880; 84443; 84484; 85025; 85380; 85610; 85730; 87637; 93005; 93306; 96374; 96375; 97161; 97165; 99285; A9270; G0378; J7030; Q9967